=== PATIENT | female | born 1995 | race Caucasian/White ===

== ENCOUNTER 2020-04-25 11:17 | Outpatient (REF) | payer MEDICAID, SELFPAY | END 2020-04-25 11:18 | disposition home or self-care (01) | LOC: HO.LAB 11:17 | PROVIDERS: Visit Provider Internal Medicine | DX: Z20.828 Contact with and (suspected) exposure to other viral communicable diseases (principal) | CPT/HCPCS: 87635 ==

== ENCOUNTER → 2020-06-11 09:03 | Outpatient (BNVA) | payer MEDICAID, SELFPAY | PROVIDERS: Visit Provider Obstetrics & Gynecology | DX: Z31.69 Encounter for other general counseling and advice on procreation (principal); R87.610 Atypical squamous cells of undetermined significance on cytologic smear of cervix (ASC-US) | CPT/HCPCS: 99202 ==

== ENCOUNTER 2020-06-13 12:59 | Outpatient (REF) | payer MEDICAID, SELFPAY ==
--- NOTE | 2020-06-13 13:04 | US_ITS ---
EXAMINATION: PELVIC ULTRASOUND CLINICAL INFORMATION: Infertility COMPARISON: None TECHNIQUE: Transabdominal and transvaginal pelvic ultrasound was performed. Transvaginal exam was performed for better visualization of the uterus and ovaries. FINDINGS: The uterus is anteverted and measures 6.8 x 4 x 4.3 cm in dimension. No focal uterine lesion is seen. Endometrial thickness is normal estimated at 0.3 cm. The ovaries are normal. The right ovary measures 2.6 x 1.8 x 2.2 cm and the left ovary measures 2.2 x 1.4 x 1.9 cm. There is no fluid in the pelvis. US/US pelvic complete IMPRESSION: Normal pelvic ultrasound.
--- NOTE | 2020-06-13 13:04 | US_ITS ---
EXAMINATION: PELVIC ULTRASOUND CLINICAL INFORMATION: Infertility COMPARISON: None TECHNIQUE: Transabdominal and transvaginal pelvic ultrasound was performed. Transvaginal exam was performed for better visualization of the uterus and ovaries. FINDINGS: The uterus is anteverted and measures 6.8 x 4 x 4.3 cm in dimension. No focal uterine lesion is seen. Endometrial thickness is normal estimated at 0.3 cm. The ovaries are normal. The right ovary measures 2.6 x 1.8 x 2.2 cm and the left ovary measures 2.2 x 1.4 x 1.9 cm. There is no fluid in the pelvis. US/US transvaginal IMPRESSION: Normal pelvic ultrasound.
== END 2020-06-13 13:00 | disposition home or self-care (01) ==
LOC: HO.HMGCX 12:59
PROVIDERS: Visit Provider Obstetrics & Gynecology
DX: Z31.69 Encounter for other general counseling and advice on procreation (principal)
CPT/HCPCS: 76830; 76856

== ENCOUNTER → 2020-07-06 10:05 | Outpatient (BNVA) | payer MEDICAID, SELFPAY | PROVIDERS: Visit Provider Obstetrics & Gynecology | DX: Z31.69 Encounter for other general counseling and advice on procreation (principal) | CPT/HCPCS: 99212 ==

== ENCOUNTER 2020-10-25 08:11 | Emergency (ER) | payer OTHER, SELFPAY ==
[2020-10-25 08:47] VITALS: BP 118/72; PULSE 63; RESP 16; TEMP 36.4; O2SAT 99; BMI 27.4
[2020-10-25 09:43] VITALS: BP 113/63; PULSE 67; RESP 20; O2SAT 99
--- NOTE | 2020-10-25 10:17 | ED.HA ---
HPI - Headache General Chief Complaint: Headache <Kaylee Morales PA-C - Last Filed: 10/25/20 11:13> Stated Complaint: headache <TARI Blount Last Filed: 10/25/20 11:13> Time Seen by Provider: 10/25/20 10:15 <TARI Blount Last Filed: 10/25/20 11:13> Source: patient <TARI Blount Last Filed: 10/25/20 11:13> Mode of arrival: ambulatory <TARI Blount Last Filed: 10/25/20 11:13> Limitations: no limitations <TARI Blount Last Filed: 10/25/20 11:13> History of Present Illness HPI Narrative: Patient is a 25-year-old female with no significant past medical history who presents with 2 days of headache. She endorses light sensitivity, sound sensitivity and has taken Tylenol with no relief. She states she used to get them when she was much younger but she has not had one in many years. States she has no migraine medication currently prescribed to her. States she is well hydrated denies any alcohol or drug use recently. Denies nausea, vomiting, diarrhea or fevers. <Kaylee Morales PA-C - Last Filed: 10/25/20 11:13> Related Data Home Medications: Previous Rx's Medication Instructions Recorded clomiphene citrate 50 mg tablet 50 mg PO DAILY 5 Days #30 tab 07/06/20 sumatriptan 5 mg INTRANASAL Q2-4H PRN #6 ea 10/25/20 <TARI Blount Last Filed: 10/25/20 11:13> Allergies/Adverse Reactions: Allergies Allergy/AdvReac Type Severity Reaction Status Date / Time No Known Allergies Allergy Verified 07/06/20 10:12 <TARI Blount Last Filed: 10/25/20 11:13> Review of Systems Review of Systems: Yes all other systems are reviewed and are negative <TARI Blount Last Filed: 10/25/20 11:13> [facility] Social History Social History: Social History Alcohol intake: current Smoking Status: Never smoker Advance Directives: No Advance Directives Information Provided: No Sexual orientation: Straight/Heterosexual Gender identity: female <Kaylee Morales PA-C - Last Filed: 10/25/20 11:13> Physical Exam Vital Signs: Vital Signs: Last Vital Signs Temp 97.6 F 10/25/20 08:47 Pulse 67 10/25/20 09:43 Resp 10/25/20 09:43 BP 113/63 10/25/20 09:43 Pulse Ox 99 10/25/20 09:43 Body Mass Index 27.4 <Kaylee Morales PA-C - Last Filed: 10/25/20 11:13> Vital Signs: Last Vital Signs Temp 97.6 F 10/25/20 08:47 Pulse 67 10/25/20 09:43 Resp 10/25/20 09:43 BP 113/63 10/25/20 09:43 Pulse Ox 99 10/25/20 09:43 Body Mass Index 27.4 <Christopher Marcos MD - Last Filed: 11/13/20 13:27> Const: General: cooperative, healthy appearing, comfortable, no acute distress and tired appearing <Kaylee Morales PA-C - Last Filed: 10/25/20 11:13> Nutritional Appearance: average body habitus <Kaylee Morales PA-C - Last Filed: 10/25/20 11:13> Orientation/consciousness: patient oriented x3 <Kaylee Morales PA-C - Last Filed: 10/25/20 11:13> HENMT: Head: Yes normal to inspection, Yes No palpable skull fracture present, Yes normocephalic and Yes atraumatic <Kaylee Morales PA-C - Last Filed: 10/25/20 11:13> Ears: hearing grossly normal bilaterally <Kaylee Morales PA-C - Last Filed: 10/25/20 11:13> General nose exam: Normal external nose present <Kaylee Morales PA-C - Last Filed: 10/25/20 11:13> Face and sinus: Yes normal facial exam <Kaylee Morales PA-C - Last Filed: 10/25/20 11:13> Eyes: General: appearance normal, both eyes and all related structures <Kaylee Morales PA-C - Last Filed: 10/25/20 11:13> EOM: EOMs intact bilaterally <Kaylee Morales PA-C - Last Filed: 10/25/20 11:13> Neck: Neck: Yes normal visual inspection, Yes full ROM and Yes supple <Kaylee Morales PA-C - Last Filed: 10/25/20 11:13> Resp: Effort & Inspection: normal respiratory effort and able to speak in complete sentences <Kaylee Morales PA-C - Last Filed: 10/25/20 11:13> Auscultation: clear to auscultation bilaterally <Kaylee Morales PA-C - Last Filed: 10/25/20 11:13> Cardio: Rate: regular rate <Kaylee Morales PA-C - Last Filed: 10/25/20 11:13> Rhythm: regular rhythm <Kaylee Morales PA-C - Last Filed: 10/25/20 11:13> Neuro: General: patient oriented x3 <Kaylee Morales PA-C - Last Filed: 10/25/20 11:13> Course Course Course Narrative: 25-year-old female with no significant past medical history presents with 2 days of a migraine. VSS. Physical exam unremarkable. Will give migraine cocktail and reassess. <Kaylee Morales PA-C - Last Filed: 10/25/20 11:13> I have reviewed the chart <Christopher Marcos MD - Last Filed: 11/13/20 13:27> Reevaluation(s) Reevaluation #1: Patient is feeling much better, reviewed migraine treatment and triggers. Patient is calling for a ride. <Kaylee Morales PA-C - Last Filed: 10/25/20 11:13> Time: 11:13 <Kaylee Morales PA-C - Last Filed: 10/25/20 11:13> Discharge Plan Discharge Clinical Impression: Migraine <Kaylee Morales PA-C - Last Filed: 10/25/20 11:13> Patient Disposition: Home, Self-Care <Kaylee Morales PA-C - Last Filed: 10/25/20 11:13> Instructions: Migraine Headache (ED) <Kaylee Morales PA-C - Last Filed: 10/25/20 11:13> Additional Instructions: I have attached information regarding migraines and what common triggers are, the should be avoided. I have also sent a prescription for sumatriptan to your pharmacy for you to try. If you have success with it, you can ask your PCP for refills. If you experience a headache you cannot control with acetaminophen and ibuprofen or feels like the worst headache of her life, please return to the emergency department [facility] or call 911. <Kaylee Morales PA-C - Last Filed: 10/25/20 11:13> Prescriptions: New sumatriptan 5 mg/actuation spray,non-aerosol 5 mg intranasal Q2-4H PRN (Reason: migraine headache) Qty: 6 RF: 0 No Action clomiphene citrate 50 mg tablet 50 mg PO DAILY 5 Days Qty: 30 RF: 0 <Kaylee Morales PA-C - Last Filed: 10/25/20 11:13> Stand Alone Forms: Work/School Release <Kaylee Morales PA-C - Last Filed: 10/25/20 11:13> Interventions: ED Discharge Assessment Last Done: 10/25/20 11:21 <Kaylee Morales PA-C - Last Filed: 10/25/20 11:13> Discharge Date/Time: 10/25/20 11:27 <Kaylee Morales PA-C - Last Filed: 10/25/20 11:13>
[2020-10-25] MEDS: diphenhydrAMINE HCL 25 MG TABLET 50 MG PO (10:28)
[2020-10-25] MEDS: Ketorolac Tromethamine 30 MG/ML VIAL IM (10:28)
[2020-10-25] MEDS: Metoclopramide HCl 5 MG TABLET PO (10:29)
== END 2020-10-25 11:27 | disposition home or self-care (01) ==
PROVIDERS: Emergency Provider Emergency Medicine
DX: G43.009 Migraine without aura, not intractable, without status migrainosus (principal); Z79.899 Other long term (current) drug therapy
CPT/HCPCS: 96372; 99284; J1885; Q0163

== ENCOUNTER 2021-01-02 12:55 | Outpatient (REF) | payer OTHER, SELFPAY ==
--- NOTE | ~2021-01-02 | FL_ITS ---
EXAMINATION: XR HYSTEROSALPINGOGRAM CLINICAL INFORMATION: Infertility. Z31.69. COMPARISON: Pelvic ultrasound 06/13/2020. TECHNIQUE: Canalization of the cervical os and injection of iodinated contrast is Gynecology. See separate report. Fluoroscopy time: 0.6 minutes DAP: 8.983 Gycm2 Fluoroscopic spot images: 5 FINDINGS: Both fallopian tubes are normal in caliber. There is spillage from both fallopian tubes into the peritoneal cavity, initially on the right and subsequently on the left. The upper uterine cavity contours visualized are smooth. There are no internal septations or focal submucosal contour abnormality in the upper uterine cavity. FL/FL hysterosalpingography IMPRESSION: Bilateral fallopian tube patency. No hydrosalpinx.
== END 2021-01-02 12:56 | disposition home or self-care (01) ==
LOC: HO.XRAY 12:55
PROVIDERS: Visit Provider Obstetrics & Gynecology
DX: Z31.69 Encounter for other general counseling and advice on procreation (principal)
CPT/HCPCS: 58340; 74740

== ENCOUNTER 2021-07-16 07:55 | Emergency (ER) | payer OTHER, SELFPAY ==
[2021-07-16 08:07] VITALS: BP 120/68; PULSE 93; RESP 15; TEMP 36.8; O2SAT 96
[2021-07-16 08:53] VITALS: BP 116/57; PULSE 97; RESP 18; TEMP 36.9; O2SAT 98; BMI 27.4
[2021-07-16 09:26] LABS: MANUAL DIFF FLAG NO
[2021-07-16 09:31] LABS: Basophils Percent Auto 0.2 % (0-2); Hematocrit 41.4 % (37.0-47.0); Hemoglobin 14.2 g/dl (12.0-16.0); Imm Gran Abs Auto 0.01 X10*3/uL (0.00-0.03); Imm Gran Pct Auto 0.2 % (0.0-0.4); Lymphocytes Absolute Auto 0.7 X10*3/uL (1.2-4.9); Lymphocytes Percent Auto 12.8 % (20-40); Mean Corpuscular HGB Conc 34.3 g/dl (31.0-35.0); Mean Corpuscular Hemoglobin 32.3 pg (27.0-33.0); Mean Corpuscular Volume 94.3 fL (80.0-98.0); Mean Platelet Volume 10.6 fL (9.4-12.3); Monocytes Absolute Auto 0.5 X10*3/uL (0.1-1.2); Monocytes Percent Auto 10.3 % (2-11); Neutrophils Percent Auto 76.5 % (45-73); Platelet Count 241 X10*3/uL (160-400); Red Blood Count 4.39 X10*6/uL (4.20-5.50); Red Cell Distribution Width 11.8 % (11.0-16.0); White Blood Count 5.2 X10*3/uL (4.8-10.8)
[2021-07-16 09:45] LABS: Appearance Urine HAZY; Color Urine YELLOW; Glucose Urine UA NEG (NEG); Leukocyte Esterase Urine NEG (NEG); Nitrite Urine NEG (NEG); PH 6.5 (5.0-8.0); Specific Gravity - Urine >= 1.030 (1.005-1.025); UACC Culture Trigger NO; Urine Blood NEG (NEG); Urine Ketones 40 MG/DL (NEG); Urine Protein 1+ MG/DL (NEG-TRACE)
[2021-07-16 09:45] LABS: Anion Gap 15 (12-20); Blood Urea Nitrogen 8 mg/dL (9-16); Calcium 9.6 mg/dL (8.4-10.2); Carbon Dioxide 23 mmol/L (22-29); Chloride 104 mmol/L (96-108); Creatinine Clr Calc Pharmacy 99.6; Estimated Glomerular Filt Rate > 60; Glucose Random 105 mg/dL (60-115); Potassium 3.9 mmol/L (3.3-5.1); Sodium 138 mmol/L (135-145)
[2021-07-16 09:48] LABS: UPreg QC Valid YES; Urine Pregnancy NEGATIVE (NEGATIVE)
[2021-07-16 10:04] LABS: Bacteria Urine TRACE /LPF; Mucus Urine 2+ /LPF; RBC Urine 0 /HPF (0); Squamous Epithelial Cell Urine 2+ /LPF; WBC Urine 0-2 /HPF (0-4)
[2021-07-16 10:07] LABS: Influenza A PCR NEGATIVE (Negative); Influenza B PCR NEGATIVE (Negative); Resp Syncy Virus RNA Qual PCR NEGATIVE (Negative); SARS COV2 PCR INHOUSE POSITIVE (Negative)
--- NOTE | 2021-07-16 10:25 | ED.GENADULT ---
HPI - General Adult General Chief complaint: General Medical Stated complaint: headache/back pain Time Seen by Provider: 07/16/21 10:09 Source: patient Mode of arrival: ambulatory Limitations: no limitations History of Present Illness HPI narrative: 26-year-old female came in for evaluation of headache, body ache, low back pain. Patient's symptoms started 1 day ago, patient declined any exposure to sick contact, patient has been vaccinated with Moderna vaccine x2. No coughing, no shortness of breath. Patient found to be positive for COVID today. Related Data Previous Rx's Medication Instructions Recorded clomiphene citrate 50 mg tablet 50 mg PO DAILY 5 Days #30 tab 07/06/20 sumatriptan 5 mg/actuation nasal 5 mg INTRANASAL Q2-4H PRN #6 ea 10/25/20 spray Allergies Allergy/AdvReac Type Severity Reaction Status Date / Time No Known Allergies Allergy Verified 07/06/20 10:12 Review of Systems Review of Systems: All other systems are reviewed and are negative Constitutional: Reports as per HPI and Reports no additional constitutional complaints Eyes: Reports as per HPI and Reports no additional eye complaints Reports system reviewed and no additional complaints, except as documented Cardiovascular: Reports as per HPI and Reports no additional cardiovascular complaints Respiratory: Reports as per HPI and Reports no additional respiratory complaints Gastrointestinal: Reports as per HPI and Reports no additional gastrointestinal complaints Genitourinary: Reports no additional female genitourinary complaints Musculoskeletal: Reports no additional musculoskeletal complaints Skin/Breast: Reports system reviewed and no additional complaints, except as docu Psychiatric: Reports no additional psychiatric complaints Endocrine: Reports no additional endocrine complaints Hematologic/Lymphatic: Reports no additional hematologic/lymphatic complaints Allergic/Immunologic: Reports no additional allergic/immunologic complaints Reports system reviewed and no additional complaints, except as documented and Reports Abnormal speech present [facility] Social History Social History Alcohol intake: current Advance Directives: No Advance Directives Information Provided: No Patient : No Sexual orientation: Straight/Heterosexual Gender identity: Female Physical Exam Vital Signs: Vital Signs: Last Vital Signs Temp 98.4 F 07/16/21 08:53 Pulse 97 07/16/21 08:53 Resp 18 07/16/21 08:53 BP 116/57 L 07/16/21 08:53 Pulse Ox 98 07/16/21 08:53 BMI result Body Mass Index 27.4 Vital signs have been reviewed as appeared to be correct. Blood pressure normal. Heart rate normal. Respiration rate normal. Temperature normal. Oxygen saturation normal. Appearance: Alert. Oriented X3. No acute distress. Head: Normal external exam. Normocephalic. Atraumatic. No [place] signs noted. No raccoon eyes noted Eyes: PERRLA. EOMI. Conjunctiva and sclera normal. Eyelids normal. ENT: TM's Normal. Pharynx normal. Uvula midline. Moist mucous membranes. No trismus noted. No drooling noted. No muffled voice noted. Neck: Normal inspection. Neck supple. FROM. No adenopathy. Thyroid Normal. No meningeal signs. No neck mass noted. CVS: Normal heart rate and rhythm. Heart sound normal. No murmurs noted. Pulses normal throughout. Respiratory: No respiratory distress. Painless inspiration. Breath sounds normal. No wheezes/rales/rhonchi noted. Chest nontender. No accessory muscle usage noted or decreased air movement noted. Abdomen: Soft and nontender. Bowel sounds normal in all 4 quadrants. No distention noted. No organomegaly noted. No visible injury noted. Back: No CVA tenderness. Full range of motion noted. Skin: Skin warm and dry. Normal skin color. Normal skin turgor. No rashes/lesions/lacerations noted. Extremities: No lower extremity edema. Extremities exhibit normal range of motion. Extremities nontender. Neuro: Oriented X 3. Cranial nerve exam: II-XII are grossly intact No motor deficit. No sensory deficit. Reflexes normal. Course Course Course Narrative: Assessment and plan. 26-year-old female came in with COVID symptoms and tested positive for COVID, patient has no respiratory symptoms, with stable O2 sat on room air. patient instructed to wear face mask at all times, frequent handwashing, deep social distancing, currently treating herself further stranding days, use Tylenol or ibuprofen for fever and body ache symptoms, return if difficulty breathing. Medical Decision Making Lab Data Lab results reviewed: Yes I reviewed the patient's lab results. Result diagrams: 07/16/21 09:20 07/16/21 09:20 Labs: Lab Results 07/16/21 07/16/21 07/16/21 Range/Units 09:20 09:20 09:21 WBC 5.2 (4.8-10.8) X10*3/uL RBC 4.39 (4.20-5.50) X10*6/uL Hgb 14.2 (12.0-16.0) g/dl Hct 41.4 (37.0-47.0) % MCV 94.3 (80.0-98.0) fL MCH 32.3 (27.0-33.0) pg MCHC 34.3 (31.0-35.0) g/dl RDW 11.8 (11.0-16.0) % Plt Count 241 (160-400) X10*3/uL MPV 10.6 (9.4-12.3) fL Immature Gran % (Auto) 0.2 (0.0-0.4) % Neut % (Auto) 76.5 H (45-73) % Lymph % (Auto) 12.8 L (20-40) % [place] % (Auto) 10.3 (2-11) % Eos % (Auto) 0.0 (0-4) % Baso % (Auto) 0.2 (0-2) % Lymph # (Auto) 0.7 L (1.2-4.9) X10*3/uL [place] # (Auto) 0.5 (0.1-1.2) X10*3/uL Eos # (Auto) 0.0 (0.0-0.4) X10*3/uL Baso # (Auto) 0.0 (0.0-0.2) X10*3/uL Abs Immat Gran (auto) 0.01 (0.00-0.03) X10*3/uL Absolute Neuts (auto) 4.0 (2.0-8.3) x10*3/uL Absolute Nucleated RBC 0.000 (0.0-0.012) X10*3/uL Nucleated RBC % (auto) 0.0 (0.0-0.2) /100WBC Sodium 138 (135-145) mmol/L Potassium 3.9 (3.3-5.1) mmol/L Chloride 104 (96-108) mmol/L Carbon Dioxide 23 (22-29) mmol/L Anion Gap 15 (12-20) BUN 8 L (9-16) mg/dL Creatinine 0.76 (0.5-1.4) mg/dL Estim Creat Clear Calc 99.6 Estimated GFR > 60 Random Glucose 105 (60-115) mg/dL Calcium 9.6 (8.4-10.2) mg/dL Urine Color Urine Appearance Urine pH (5.0-8.0) Ur Specific [place] (1.005-1.025) Urine Protein (NEG-TRACE) MG/DL Urine Glucose (UA) (NEG) MG/DL Urine Ketones (NEG) MG/DL Urine Blood (NEG) Urine Nitrite (NEG) Ur Leukocyte Esterase (NEG) Urine RBC (0) /HPF Urine WBC (0-4) /HPF Ur Squamous Epith Cells /LPF Urine Bacteria /LPF Urine Mucus /LPF Urine Test (NEGATIVE) Influenza Type A (PCR) NEGATIVE (Negative) Influenza Type B (PCR) NEGATIVE (Negative) RSV RNA Qual (PCR) NEGATIVE (Negative) SARS-CoV-2 RNA (RT-PCR) POSITIVE A (Negative) 07/16/21 07/16/21 Range/Units 09:38 09:38 WBC (4.8-10.8) X10*3/uL RBC (4.20-5.50) X10*6/uL Hgb (12.0-16.0) g/dl Hct (37.0-47.0) % MCV (80.0-98.0) fL MCH (27.0-33.0) pg MCHC (31.0-35.0) g/dl RDW (11.0-16.0) % Plt Count (160-400) X10*3/uL MPV (9.4-12.3) fL Immature Gran % (Auto) (0.0-0.4) % Neut % (Auto) (45-73) % Lymph % (Auto) (20-40) % [place] % (Auto) (2-11) % Eos % (Auto) (0-4) % Baso % (Auto) (0-2) % Lymph # (Auto) (1.2-4.9) X10*3/uL [place] # (Auto) (0.1-1.2) X10*3/uL Eos # (Auto) (0.0-0.4) X10*3/uL Baso # (Auto) (0.0-0.2) X10*3/uL Abs Immat Gran (auto) (0.00-0.03) X10*3/uL Absolute Neuts (auto) (2.0-8.3) x10*3/uL Absolute Nucleated RBC (0.0-0.012) X10*3/uL Nucleated RBC % (auto) (0.0-0.2) /100WBC Sodium (135-145) mmol/L Potassium (3.3-5.1) mmol/L Chloride (96-108) mmol/L Carbon Dioxide (22-29) mmol/L Anion Gap (12-20) BUN (9-16) mg/dL Creatinine (0.5-1.4) mg/dL Estim Creat Clear Calc Estimated GFR Random Glucose (60-115) mg/dL Calcium (8.4-10.2) mg/dL Urine Color YELLOW Urine Appearance HAZY Urine pH 6.5 (5.0-8.0) Ur Specific [place] >= 1.030 H (1.005-1.025) Urine Protein 1+ H (NEG-TRACE) MG/DL Urine Glucose (UA) NEG (NEG) MG/DL Urine Ketones 40 (NEG) MG/DL Urine Blood NEG (NEG) Urine Nitrite NEG (NEG) Ur Leukocyte Esterase NEG (NEG) Urine RBC 0 (0) /HPF Urine WBC 0-2 (0-4) /HPF Ur Squamous Epith Cells 2+ /LPF Urine Bacteria TRACE /LPF Urine Mucus 2+ /LPF Urine Test NEGATIVE (NEGATIVE) Influenza Type A (PCR) (Negative) Influenza Type B (PCR) (Negative) RSV RNA Qual (PCR) (Negative) SARS-CoV-2 RNA (RT-PCR) (Negative) Discharge Plan Discharge Clinical Impression: COVID-19 virus infection Patient Disposition: Home, Self-Care Instructions: COVID-19 (Coronavirus Disease 2019) (ED) Additional Instructions: Wear a face mask at all time, frequent handwashing, keep social distancing, quarantine yourself for the next 10 days, seek immediate medical attention if shortness of breath, use Tylenol/ibuprofen for fever or body aches symptoms. Prescriptions: No Action sumatriptan 5 mg/actuation spray,non-aerosol 5 mg intranasal Q2-4H PRN (Reason: migraine headache) Qty: 6 RF: 0 clomiphene citrate 50 mg tablet 50 mg PO DAILY 5 Days Qty: 30 RF: 0 Referrals: Physician,None [Primary Care Provider] - 2 days Stand Alone Forms: Work/School Release
== END 2021-07-16 10:35 | disposition home or self-care (01) ==
PROVIDERS: Emergency Provider Emergency Medicine
DX: U07.1 COVID-19 (principal)
CPT/HCPCS: 0241U; 80048; 81001; 81025; 85025; 99283

== ENCOUNTER → 2021-10-17 15:28 | Outpatient (BNVA) | payer OTHER, SELFPAY | PROVIDERS: Visit Provider Internal Medicine | DX: Z77.21 Contact with and (suspected) exposure to potentially hazardous body fluids (principal) | CPT/HCPCS: 36415; 84450; 84460; 84702; 85025; 86706; 86803; 87389; 99204 ==

== ENCOUNTER → 2021-10-24 15:28 | Outpatient (BNVA) | payer OTHER, SELFPAY | PROVIDERS: Visit Provider Physician Assistant | DX: Z77.21 Contact with and (suspected) exposure to potentially hazardous body fluids (principal) | CPT/HCPCS: 99213 ==

== ENCOUNTER 2021-12-21 05:38 | Emergency (ER) | payer OTHER, SELFPAY ==
[2021-12-21 05:42] VITALS: BP 121/73; PULSE 89; RESP 18; TEMP 36.9; O2SAT 99; BMI 28.6
[2021-12-21 05:55] LABS: Basophils Percent Auto 0.3 % (0-2); Eosinophils Absolute Auto 0.1 X10*3/uL (0.0-0.4); Eosinophils Percent Auto 0.6 % (0-4); Hematocrit 40.5 % (37.0-47.0); Hemoglobin 13.9 g/dl (12.0-16.0); Imm Gran Abs Auto 0.04 X10*3/uL (0.00-0.03); Imm Gran Pct Auto 0.4 % (0.0-0.4); Lymphocytes Absolute Auto 2.1 X10*3/uL (1.2-4.9); MANUAL DIFF FLAG NO; Mean Corpuscular HGB Conc 34.3 g/dl (31.0-35.0); Mean Corpuscular Hemoglobin 32.4 pg (27.0-33.0); Mean Corpuscular Volume 94.4 fL (80.0-98.0); Mean Platelet Volume 10.2 fL (9.4-12.3); Monocytes Absolute Auto 0.5 X10*3/uL (0.1-1.2); Monocytes Percent Auto 4.5 % (2-11); Neutrophils Absolute Auto 8.2 x10*3/uL (2.0-8.3); Neutrophils Percent Auto 75.2 % (45-73); Platelet Count 292 X10*3/uL (160-400); Red Blood Count 4.29 X10*6/uL (4.20-5.50); White Blood Count 10.9 X10*3/uL (4.8-10.8)
[2021-12-21 06:06] LABS: Appearance Urine CLEAR; Color Urine YELLOW; Glucose Urine UA NEG (NEG); Leukocyte Esterase Urine NEG (NEG); Nitrite Urine NEG (NEG); Specific Gravity - Urine >= 1.030 (1.005-1.025); UACC Culture Trigger NO; Urine Blood 3+ (NEG); Urine Ketones NEG (NEG); Urine Protein NEG (NEG-TRACE)
[2021-12-21 06:08] LABS: UPreg QC Valid YES; Urine Pregnancy NEGATIVE (NEGATIVE)
[2021-12-21 06:15] LABS: Alanine Aminotransferase 16 U/L (0-31); Albumin Level 4.5 g/dL (3.5-5.0); Alkaline Phosphatase 67 U/L (39-117); Anion Gap 12 (12-20); Aspartate Amino Transferase 15 U/L (5-31); Bilirubin Total 0.3 mg/dL (0.0-1.0); Blood Urea Nitrogen 13 mg/dL (9-16); Calcium 9.1 mg/dL (8.4-10.2); Carbon Dioxide 24 mmol/L (22-29); Chloride 106 mmol/L (96-108); Creatinine Clr Calc Pharmacy 108.8; Estimated Glomerular Filt Rate > 60; Glucose Random 114 mg/dL (60-115); Sodium 138 mmol/L (135-145); Total Protein 7.4 g/dL (6.5-8.0)
[2021-12-21 06:15] LABS: Bacteria Urine 2+ /LPF; Mucus Urine 2+ /LPF; Squamous Epithelial Cell Urine 1+ /LPF
[2021-12-21 07:14] VITALS: BP 111/65; PULSE 68; RESP 16; O2SAT 98
--- NOTE | 2021-12-21 08:16 | ED.FEMALEGU ---
HPI - Female Genitourinary General Chief complaint: Vaginal Bleeding Stated complaint: ? miscarriage Time Seen by Provider: 12/21/21 07:59 Source: patient Mode of arrival: ambulatory Limitations: no limitations History of Present Illness HPI Narrative: 26-year-old female previously healthy here with reports of abdominal cramping and vaginal bleeding. Patient tells me that she last menstrual cycle on October 27. She took a test 1 week ago and it was positive. Last evening she started to have some spotting. This morning when she woke up at 03:00 she had increased bleeding and lower abdominal cramping bilaterally. She denies any nausea, vomiting, diarrhea, urinary symptoms, fevers or chills. Patient is currently sexually active. She has not on control. She has been trying to get for the last 1 year. She has been once before and has 1 living child. Related Data Previous Rx's Medication Instructions Recorded clomiphene citrate 50 mg tablet 50 mg PO DAILY 5 days #30 tabs 07/06/20 sumatriptan 5 mg/actuation nasal 5 mg intranasal Q2-4H PRN migraine 10/25/20 spray headache #6 ea Allergies Allergy/AdvReac Type Severity Reaction Status Date / Time No Known Allergies Allergy Verified 07/06/20 10:12 Review of Systems Review of Systems: Yes all other systems are reviewed and are negative Constitutional: Constitutional: Reports no additional constitutional complaints, Denies body ache(s), Denies chills, Denies fever(s), Denies headache(s) and Denies weakness Eyes: Eyes: Reports no additional eye complaints and Denies change in vision ENT: Reports system reviewed and no additional complaints, except as documented, Denies dizziness, Denies headache(s), Denies nasal congestion, Denies nasal discharge and Denies neck pain Cardiovascular: Cardiovascular: Reports no additional cardiovascular complaints, Denies chest pain, Denies leg edema and Denies dyspnea Respiratory: Respiratory: Reports no additional respiratory complaints, Denies cough and Denies dyspnea Gastrointestinal: Gastrointestinal: Reports no additional gastrointestinal complaints, Denies abdominal pain, Denies diarrhea, Denies nausea and Denies vomiting Genitourinary: Genitourinary: Reports no additional female genitourinary complaints, Reports abnormal vaginal bleeding, Reports pelvic pain and Denies urinary incontinence Musculoskeletal: Musculoskeletal: Reports no additional musculoskeletal complaints, Denies back pain, Denies arthralgias, Denies joint swelling, Denies neck pain, Denies numbness and Denies tingling Integumentary/Breasts: Skin/Breast: Reports system reviewed and no additional complaints, except as docu and Denies rash Neurologic: Reports system reviewed and no additional complaints, except as documented, Denies Abnormal speech present, Denies dizziness, Denies headache(s), Denies numbness, Denies tingling and Denies weakness [facility] Past Medical History Attestation statement: The following information was validated with the patient. Source: old records reviewed and nursing notes reviewed Social History Social History Alcohol intake: current Advance Directives: No Advance Directives Information Provided: Yes Sexual orientation: Straight/Heterosexual Gender identity: Female Physical Exam Vital Signs: Vital Signs: Last Vital Signs Temp 98.5 F 12/21/21 05:42 Pulse 68 12/21/21 07:14 Resp 16 12/21/21 07:14 BP 111/65 12/21/21 07:14 Pulse Ox 98 12/21/21 07:14 O2 Del Method 12/21/21 07:14 BMI result Body Mass Index 28.6 Const: General: cooperative, healthy appearing, comfortable and no acute distress Orientation/consciousness: patient oriented x3 Limitations: no limitations HEENT: Head: Yes normal to inspection Ears: hearing grossly normal bilaterally General nose exam: Normal external nose present Face and sinus: Yes normal facial exam Mouth: Normal oral and palatal mucosa present Throat: Yes posterior oropharynx normal Eyes: General: appearance normal, both eyes and all related structures Pupils: Equal, round and reactive pupils present Neck: Neck: Yes normal visual inspection Chest: Chest palpation & inspection: normal inspection of the chest Resp: Effort & Inspection: normal respiratory effort Auscultation: clear to auscultation bilaterally Cardio: Rate: regular rate Rhythm: regular rhythm Peripheral pulses: Peripheral pulses 2+ throughout GI: Inspection: Yes normal to inspection Palpation (GI): Soft to palpation and nontender Auscultation: normal bowel sounds : 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 noted-no clots External Female Exam: normal external appearance Speculum Exam - Vagina: normal appearance of the vagina Speculum Exam - Cervix: normal appearance of the cervix Bimanual exam- vagina & uterus: normal bimanual exam Bimanual Exam- Adnexa, other: normal adnexae Back/Spine/Pelvis: Thoracic/Lumbar Spine: thoracic and lumbar spine normal to inspection Skin: General skin exam: no rashes or lesions noted Neuro: General: patient oriented x3, no focal motor deficits and normal sensation to monofilament Cranial nerves: Yes Equal, round and reactive pupils present Cognition (Neuro): normal cognition Speech: No Abnormal speech present Gait exam (Neuro): Normal gait present Motor exam (neuro): 5/5 motor strength present throughout Extrem: General: Yes normal to inspection Course Course Course Narrative: Urine is negative. Labs are unremarkable and the beta quant is negative as well. Pelvic exam shows a small to moderate amount of bleeding from the cervical os. There is no heavy bleeding. Likely dysfunctional uterine bleeding. No focal abdominal pain on exam so no need for additional imaging. Recommend patient follow-up with gynecology outpatient. Reviewed worrisome signs and symptoms such as worsening bleeding and when to return to the emergency department. Comfortable discharge home. MDM - Female Genitourinary MDM Narrative Medical decision making narrative: 26-year-old female currently healthy here with concern for abdominal cramping and vaginal bleeding since last evening with a home test that was positive 1 week ago. On exam no focal abdominal tenderness. Vitals are stable. Urine from triage is negative. Will obtain labs to include hemoglobin and check beta quant. Patient reports she has used 3 pads since 03:00 this morning. Will need pelvic exam Consider ectopic , spontaneous miscarriage, threatened , dysfunctional uterine bleeding Medical Records Attestation: I reviewed the patient's medical records. Lab Data Attestation: I reviewed the patient's lab results. Result diagrams: 12/21/21 05:47 12/21/21 05:47 Labs: Lab Results 12/21/21 12/21/21 12/21/21 Range/Units 05:47 05:47 05:57 WBC 10.9 H (4.8-10.8) X10*3/uL RBC 4.29 (4.20-5.50) X10*6/uL Hgb 13.9 (12.0-16.0) g/dl Hct 40.5 (37.0-47.0) % MCV 94.4 (80.0-98.0) fL MCH 32.4 (27.0-33.0) pg MCHC 34.3 (31.0-35.0) g/dl RDW 12.0 (11.0-16.0) % Plt Count 292 (160-400) X10*3/uL MPV 10.2 (9.4-12.3) fL Immature Gran % (Auto) 0.4 (0.0-0.4) % Neut % (Auto) 75.2 H (45-73) % Lymph % (Auto) 19.0 L (20-40) % [place] % (Auto) 4.5 (2-11) % Eos % (Auto) 0.6 (0-4) % Baso % (Auto) 0.3 (0-2) % Lymph # (Auto) 2.1 (1.2-4.9) X10*3/uL [place] # (Auto) 0.5 (0.1-1.2) X10*3/uL Eos # (Auto) 0.1 (0.0-0.4) X10*3/uL Baso # (Auto) 0.0 (0.0-0.2) X10*3/uL Abs Immat Gran (auto) 0.04 H (0.00-0.03) X10*3/uL Absolute Neuts (auto) 8.2 (2.0-8.3) x10*3/uL Absolute Nucleated RBC 0.000 (0.0-0.012) X10*3/uL Nucleated RBC % (auto) 0.0 (0.0-0.2) /100WBC Sodium 138 (135-145) mmol/L Potassium 4.0 (3.3-5.1) mmol/L Chloride 106 (96-108) mmol/L Carbon Dioxide 24 (22-29) mmol/L Anion Gap 12 (12-20) BUN 13 D (9-16) mg/dL Creatinine 0.71 (0.5-1.4) mg/dL Estim Creat Clear Calc 108.8 Estimated GFR > 60 Random Glucose 114 (60-115) mg/dL Calcium 9.1 (8.4-10.2) mg/dL Total Bilirubin 0.3 (0.0-1.0) mg/dL AST 15 (5-31) U/L ALT 16 (0-31) U/L Alkaline Phosphatase 67 (39-117) U/L Total Protein 7.4 (6.5-8.0) g/dL Albumin 4.5 (3.5-5.0) g/dL Beta HCG, Quant < 2 mIU/mL Urine Color YELLOW Urine Appearance CLEAR Urine pH 6.0 (5.0-8.0) Ur Specific [place] >= 1.030 H (1.005-1.025) Urine Protein NEG (NEG-TRACE) MG/DL Urine Glucose (UA) NEG (NEG) MG/DL Urine Ketones NEG (NEG) MG/DL Urine Blood 3+ H (NEG) Urine Nitrite NEG (NEG) Ur Leukocyte Esterase NEG (NEG) Urine RBC 1-4 (0) /HPF Urine WBC 1-4 (0-4) /HPF Ur Squamous Epith Cells 1+ /LPF Urine Bacteria 2+ /LPF Urine Mucus 2+ /LPF Urine Test (NEGATIVE) 12/21/21 Range/Units 05:57 WBC (4.8-10.8) X10*3/uL RBC (4.20-5.50) X10*6/uL Hgb (12.0-16.0) g/dl Hct (37.0-47.0) % MCV (80.0-98.0) fL MCH (27.0-33.0) pg MCHC (31.0-35.0) g/dl RDW (11.0-16.0) % Plt Count (160-400) X10*3/uL MPV (9.4-12.3) fL Immature Gran % (Auto) (0.0-0.4) % Neut % (Auto) (45-73) % Lymph % (Auto) (20-40) % [place] % (Auto) (2-11) % Eos % (Auto) (0-4) % Baso % (Auto) (0-2) % Lymph # (Auto) (1.2-4.9) X10*3/uL [place] # (Auto) (0.1-1.2) X10*3/uL Eos # (Auto) (0.0-0.4) X10*3/uL Baso # (Auto) (0.0-0.2) X10*3/uL Abs Immat Gran (auto) (0.00-0.03) X10*3/uL Absolute Neuts (auto) (2.0-8.3) x10*3/uL Absolute Nucleated RBC (0.0-0.012) X10*3/uL Nucleated RBC % (auto) (0.0-0.2) /100WBC Sodium (135-145) mmol/L Potassium (3.3-5.1) mmol/L Chloride (96-108) mmol/L Carbon Dioxide (22-29) mmol/L Anion Gap (12-20) BUN (9-16) mg/dL Creatinine (0.5-1.4) mg/dL Estim Creat Clear Calc Estimated GFR Random Glucose (60-115) mg/dL Calcium (8.4-10.2) mg/dL Total Bilirubin (0.0-1.0) mg/dL AST (5-31) U/L ALT (0-31) U/L Alkaline Phosphatase (39-117) U/L Total Protein (6.5-8.0) g/dL Albumin (3.5-5.0) g/dL Beta HCG, Quant mIU/mL Urine Color Urine Appearance Urine pH (5.0-8.0) Ur Specific [place] (1.005-1.025) Urine Protein (NEG-TRACE) MG/DL Urine Glucose (UA) (NEG) MG/DL Urine Ketones (NEG) MG/DL Urine Blood (NEG) Urine Nitrite (NEG) Ur Leukocyte Esterase (NEG) Urine RBC (0) /HPF Urine WBC (0-4) /HPF Ur Squamous Epith Cells /LPF Urine Bacteria /LPF Urine Mucus /LPF Urine Test NEGATIVE (NEGATIVE) Discharge Plan Discharge Clinical Impression: Dysfunctional uterine bleeding Patient Disposition: Home, Self-Care Instructions: Dysfunctional Uterine Bleeding (ED) Additional Instructions: Your test and hormone level are negative. Follow-up with your OBGYN Return for heavy bleeding more than 1 pad an 1 hour Prescriptions: No Action sumatriptan 5 mg/actuation spray,non-aerosol 5 mg intranasal Q2-4H PRN (Reason: migraine headache) Qty: 6 0RF Rx Instructions: into each nostril once; if headache remains, may repeat total dose once after at least 2 hours clomiphene citrate 50 mg tablet 50 mg PO DAILY 5 Days Qty: 30 0RF Referrals: Physician,None [Primary Care Provider] - Everardo Roman MD [Physician] - 1 week Interventions: ED Discharge Assessment Last Done: 12/21/21 08:49 Discharge Date/Time: 12/21/21 08:49
[2021-12-21 08:31] LABS: HCG Quantitative < 2 mIU/mL
== END 2021-12-21 08:49 | disposition home or self-care (01) ==
PROVIDERS: Nurse Practitioner Family; Emergency Provider Emergency Medicine Emergency Medical Services
DX: N93.8 Other specified abnormal uterine and vaginal bleeding (principal); R25.2 Cramp and spasm; Z79.899 Other long term (current) drug therapy
CPT/HCPCS: 36415; 80053; 81001; 81025; 84702; 85025; 99283

== ENCOUNTER 2022-01-20 20:34 | Emergency (ER) | payer OTHER, SELFPAY ==
[2022-01-20 21:08] VITALS: BP 104/48; PULSE 75; RESP 18; TEMP 35.6; O2SAT 100; BMI 27.4
--- NOTE | 2022-01-21 00:46 | ED_ITS ---
HPI - Wound/Laceration General Chief Complaint: Wound/Laceration <Adela Guzman MD - Last Filed: 01/21/22 01:33> Stated Complaint: cut wants to be looked at <Adela Guzman MD - Last Filed: 01/21/22 01:33> Time Seen by Provider: 01/20/22 21:47 <Adela Guzman MD - Last Filed: 01/21/22 01:33> Source: patient <Adela Guzman MD - Last Filed: 01/21/22 01:33> Mode of arrival: ambulatory <Adela Guzman MD - Last Filed: 01/21/22 01:33> History of Present Illness HPI narrative: 26-year-old female without significant past medical history presents with clean laceration to the thenar eminence of the left hand that she sustained while at work from a scalpel that was not contaminated with any blood or body fluids. Patient reports that she is up-to-date on tetanus shot. <Adela Guzman MD - Last Filed: 01/21/22 01:33> Related Data Home Medications: Previous Rx's Medication Instructions Recorded clomiphene citrate 50 mg tablet 50 mg PO DAILY 5 days #30 tabs 07/06/20 sumatriptan 5 mg/actuation nasal 5 mg intranasal Q2-4H PRN migraine 10/25/20 spray headache #6 ea <Adela Guzman MD - Last Filed: 01/21/22 01:33> Allergies/Adverse Reactions: Allergies Allergy/AdvReac Type Severity Reaction Status Date / Time No Known Allergies Allergy Verified 07/06/20 10:12 <Adela Guzman MD - Last Filed: 01/21/22 01:33> Review of Systems Review of Systems: Pertinent positives and negatives as stated in HPI 10 point review of systems is otherwise negative. <Adela Guzman MD - Last Filed: 01/21/22 01:33> FOR[facility]LY [facility] Past Medical History Source: nursing notes reviewed <Adela Guzman MD - Last Filed: 01/21/22 01:33> Social History Social History: Social History Alcohol intake: current Advance Directives: No Advance Directives Information Provided: Yes Sexual orientation: Straight/Heterosexual Gender identity: Female <Adela Guzman MD - Last Filed: 01/21/22 01:33> Physical Exam Vital Signs: Vital Signs: Last Vital Signs Temp 96.0 F L 01/20/22 21:08 Pulse 75 01/20/22 21:08 Resp 18 01/20/22 21:08 BP 104/48 L 01/20/22 21:08 Pulse Ox 100 01/20/22 21:08 O2 Del Method 01/20/22 21:08 BMI result Body Mass Index 27.4 VITAL SIGNS: Reviewed. GENERAL: Well developed, well nourished, in no acute distress. HEAD: Normocephalic/atraumatic EYES: PERRLA, EOMI EARS: Ext canals without abnormality OROPHARYNX: no oral lesions noted, posterior pharynx LUNGS: Normal breath sounds. No adventitious sounds or accessory muscle use. SpO2<100> CARDIOVASCULAR: Regular rate and rhythm without noted murmurs ABDOMEN: Soft, non-tender, non-distended with bowel sounds. MUSCULOSKELETAL: No tenderness, deformities, or effusions noted on gross inspection. EXTREMITIES: No cyanosis, clubbing or edema; LEFT HAND: 2 cm superficial laceration that is hemostatic to the thenar eminence of the left hand, neurovascular is intact with full range of motion and apposition of the thumb. SKIN: Inspection of the skin reveals no rashes NEUROLOGIC: Alert and oriented x 4. Strength and sensation to light touch were grossly intact x 4. <Adela Guzmna MD - Last Filed: 01/21/22 01:33> Vital Signs: Last Vital Signs Temp 96.0 F L 01/20/22 21:08 Pulse 75 01/20/22 21:08 Resp 18 01/20/22 21:08 BP 104/48 L 01/20/22 21:08 Pulse Ox 100 01/20/22 21:08 O2 Del Method 01/20/22 21:08 BMI result Body Mass Index 27.4 <TONIE Pizarro - Last Filed: 01/21/22 01:33> Course Course Course Narrative: 26-year-old female with history and clinical presentation consistent with superficial laceration from a sterile scalp pole, not contaminated, up-to-date on tetanus, and will receive a minimum of 2 sutures, refer to the procedure note for details. Otherwise, patient was discharged home with instructions to take [id number] Tylenol/ibuprofen as needed for pain control and to have the sutures removed in 5 days. <Adela Guzman MD - Last Filed: 01/21/22 01:33> Procedures Laceration Laceration 1: Site: hand <TONIE Pizarro - Last Filed: 01/21/22 01:33> Side (If applicable): left <TONIE Pizarro - Last Filed: 01/21/22 01:33> Size (cm): 2 <Adela Guzman MD - Last Filed: 01/21/22:33> 2 <TONIE Pizarro - Last Filed: 01/21/22 01:33> Description: linear <TONIE Pizarro - Last Filed: 01/21/22 01:33> Depth: simple, single layer <TONIE Pizarro - Last Filed: 01/21/22 01:33> Local Anesthetic: lidocaine 1% <TONIE Pizarro - Last Filed: 01/21/22 01:33> Amount of anesthesia used (mL): 4 <TONIE Pizarro - Last Filed: 01/21/22 01:33> Pre-repair: wound explored <TONIE Pizarro - Last Filed: 01/21/22 01:33> Skin layer closed with: nylon <TONIE Pizarro - Last Filed: 01/21/22 01:33> Size (cm): 5-0 <TONIE Pizarro - Last Filed: 01/21/22 01:33> Number of sutures: 2 <TONIE Pizarro - Last Filed: 01/21/22 01:33> Technique: simple, interrupted <TONIE Pizarro - Last Filed: 01/21/22 01:33> Discharge Plan Discharge Clinical Impression: Laceration <Adela Guzman MD - Last Filed: 01/21/22 01:33> Patient Disposition: Home, Self-Care <Adela Guzman MD - Last Filed: 01/21/22 01:33> Instructions: Care For Your Stitches (ED), Laceration (ED) <Adela Guzman MD - Last Filed: 01/21/22 01:33> Additional Instructions: 1. May cleanse the sutures with soap and water and blot dry with application of antibiotic ointment and placement of a Band-Aid. 2. Recommend removal of the sutures within 5 days. Return to the ER for worsening symptoms. <Adela Guzman MD - Last Filed: 01/21/22 01:33> Prescriptions: No Action sumatriptan 5 mg/actuation spray,non-aerosol 5 mg intranasal Q2-4H PRN (Reason: migraine headache) Qty: 6 0RF Rx Instructions: into each nostril once; if headache remains, may repeat total dose once after at least 2 hours clomiphene citrate 50 mg tablet 50 mg PO DAILY 5 Days Qty: 30 0RF <Adela Guzman MD - Last Filed: 01/21/22 01:33>
[2022-01-21] MEDS: Lidocaine HCl 1 % MPF 5 ML VIAL SUBCUT (01:14)
== END 2022-01-21 01:44 | disposition home or self-care (01) ==
PROVIDERS: Emergency Provider Student in an Organized Health Care Education/Training Program
DX: S61.412A Laceration without foreign body of left hand, initial encounter (principal); W26.8XXA Contact with other sharp object(s), not elsewhere classified, initial encounter; Y93.9 Activity, unspecified; Y92.9 Unspecified place or not applicable; Y99.0 Civilian activity done for income or pay
CPT/HCPCS: 12001; 99282; 99284

== ENCOUNTER 2022-03-01 15:23 | Emergency (ER) | payer OTHER, SELFPAY ==
[2022-03-01 15:37] VITALS: BP 127/85; PULSE 90; RESP 18; TEMP 35.7; O2SAT 99; BMI 28.3
[2022-03-01] MEDS: Ondansetron ODT 4 MG TAB.RAPDIS TRANSLINGU (15:41)
[2022-03-01 16:05] LABS: MANUAL DIFF FLAG NO
[2022-03-01 16:08] LABS: Basophils Percent Auto 0.4 % (0-2); Eosinophils Percent Auto 0.2 % (0-4); Hematocrit 47.1 % (37.0-47.0); Hemoglobin 16.2 g/dl (12.0-16.0); Imm Gran Abs Auto 0.02 X10*3/uL (0.00-0.03); Imm Gran Pct Auto 0.2 % (0.0-0.4); Lymphocytes Absolute Auto 1.6 X10*3/uL (1.2-4.9); Lymphocytes Percent Auto 18.6 % (20-40); Mean Corpuscular HGB Conc 34.4 g/dl (31.0-35.0); Mean Corpuscular Hemoglobin 31.8 pg (27.0-33.0); Mean Corpuscular Volume 92.5 fL (80.0-98.0); Mean Platelet Volume 10.3 fL (9.4-12.3); Monocytes Absolute Auto 0.4 X10*3/uL (0.1-1.2); Monocytes Percent Auto 4.6 % (2-11); Neutrophils Absolute Auto 6.3 x10*3/uL (2.0-8.3); Platelet Count 340 X10*3/uL (160-400); Red Blood Count 5.09 X10*6/uL (4.20-5.50); Red Cell Distribution Width 12.2 % (11.0-16.0); White Blood Count 8.3 X10*3/uL (4.8-10.8)
[2022-03-01 16:28] LABS: COVID-19 Test Negative (Negative); IDNOW Serial# 16C4AD1C
[2022-03-01 16:32] LABS: Alanine Aminotransferase 22 U/L (0-31); Albumin Level 5.3 g/dL (3.5-5.0); Alkaline Phosphatase 77 U/L (39-117); Anion Gap 20 (12-20); Aspartate Amino Transferase 21 U/L (5-31); Bilirubin Direct 0.3 mg/dL (0.0-0.5); Bilirubin Total 0.7 mg/dL (0.0-1.0); Blood Urea Nitrogen 14 mg/dL (9-16); Calcium 10.4 mg/dL (8.4-10.2); Carbon Dioxide 27 mmol/L (22-29); Chloride 104 mmol/L (96-108); Creatinine Clr Calc Pharmacy 93.8; Estimated Glomerular Filt Rate > 60; Glucose Random 105 mg/dL (60-115); Lipase 24 U/L (8-78); Potassium 4.6 mmol/L (3.3-5.1); Sodium 146 mmol/L (135-145); Total Protein 9.2 g/dL (6.5-8.0)
== END 2022-03-01 20:57 | disposition left against medical advice (07) ==
PROVIDERS: Emergency Provider Emergency Medicine
DX: R10.9 Unspecified abdominal pain (principal); R11.10 Vomiting, unspecified; Z20.822 Contact with and (suspected) exposure to COVID-19
CPT/HCPCS: 36415; 80048; 80076; 83690; 85025; 87635; 99281; 99283

== ENCOUNTER 2022-05-05 06:35 | Emergency (ER) | payer OTHER, SELFPAY ==
[2022-05-05 07:10] VITALS: BP 117/65; PULSE 65; RESP 18; TEMP 36.7; O2SAT 99; BMI 28.5
--- NOTE | 2022-05-05 08:14 | ED.HA ---
HPI - Headache General Chief Complaint: Headache Stated Complaint: migrain 2 days Time Seen by Provider: 05/05/22 07:56 Source: patient Mode of arrival: ambulatory Limitations: no limitations History of Present Illness HPI Narrative: Patient presents emergency department for evaluation of a migraine headache. Onset of symptoms was 1.5 days ago. It is diffuse to the left side. Denies any injury. Has associated photophobia without phonophobia, no nausea, no vomiting. Has trialed Excedrin at home without significant improvement. Reports a longstanding history of migraine headaches since a child, typically resolves with Excedrin. This headache feels more severe than her usual headaches but otherwise has similar qualities. Denies any red flag symptoms including fevers, chills, neck stiffness, malaise, aphasia, weakness, poor coordination, descriptors such as ?the worst headache ever ?or ?thunderclap?, or painful temporal region. Denies dizziness, lightheadedness, vision changes, URI symptoms, chest pain, shortness of breath, numbness or tingling of the extremities. Related Data Previous Rx's Medication Instructions Recorded clomiphene citrate 50 mg tablet 50 mg PO DAILY 5 days #30 tabs 07/06/20 sumatriptan 5 mg/actuation nasal 5 mg intranasal Q2-4H PRN migraine 10/25/20 spray headache #6 ea sumatriptan succinate 50 mg tablet See Rx Instructions PO .COMPLEX 05/05/22 #14 tabs Allergies Allergy/AdvReac Type Severity Reaction Status Date / Time No Known Allergies Allergy Verified 07/06/20 10:12 Review of Systems Review of Systems: Constitutional : No Fever, No Chills, No Fatigue ENT/Mouth : No sore throat, No Rhinorrhea Eyes: No Eye Pain, No Swelling, No Redness Cardiovascular : No Chest Pain, No SOB, No Dyspnea on Exertion Respiratory : No Cough, No Sputum Gastrointestinal : No Nausea, No Vomiting, No Diarrhea, No abdominal Pain Genitourinary : No Dysuria, No Urinary Frequency, No Hematuria, Musculoskeletal : No joint pain, No Myalgias, No Joint Swelling Skin : No Skin Lesions, No rash Neuro : No Weakness, No Numbness, No Dizziness, positive Headache Psych : No Anxiety/Panic, No Depression Heme/Lymph: No Bruising, No Bleeding,No Lymphadenopathy Endocrine : No Polyuria, No Polydipsia Yes all other systems are reviewed and are negative FORMERLY [facility], [facility] Past Medical History Attestation statement: The following information was validated with the patient. Source: old records reviewed Social History Social History Alcohol intake: current Alcohol intake frequency: holidays/special occasions only Smoked in Last 30 Days: No Advance Directives: No Advance Directives Information Provided: No Sexual orientation: Straight/Heterosexual Gender identity: Female Physical Exam Vital Signs: Vital Signs: Last Vital Signs Temp 98.1 F 05/05/22 07:10 Pulse 65 05/05/22 07:10 Resp 18 05/05/22 07:10 BP 117/65 05/05/22 07:10 Pulse Ox 99 05/05/22 07:10 O2 Del Method 05/05/22 07:10 BMI result Body Mass Index 28.5 Appearance: Alert.?Oriented to person, place and time. No acute distress.?Normal affect. Head: Normocephalic, atraumatic Eyes: Pupils equal, round and reactive to light. EOMI. No nystagmus. No tenderness to palpation over the temporal region. ENT: External auditory canal normal tympanic membrane pearly nova and intact bilaterally. Oropharynx normal. Neck: Normal inspection.? Neck supple. CVS: Heart sounds normal. Normal heart rate and rhythm.? Pulses normal.?? Respiratory: No respiratory distress.? Lung sounds clear to auscultation bilaterally?? Abdomen: Soft and non-tender. Normoactive bowel sounds. ?? Skin: Skin warm and dry.? Normal skin color.? ?? Extremities: No lower extremity edema.? Neuro: Moves all extremities spontaneously. Sensation intact bilaterally. CN II-XII intact. No focal neuro deficits. Ambulatory with steady gait. Course Course Course Narrative: Patient is a 27-year-old female with past medical history of migraine headaches who presents emergency department today for evaluation of a migraine. One resolving with typical remedies at home; Excedrin. She is overall well-appearing, although is tearful reports of pain. Vital signs are stable. Afebrile without tachycardia, hypoxia, tachypnea. She has no focal neurological deficits upon the time of examination. Denies any possibility of . Will trial 1 L normal saline IV fluid, Toradol IV, Reglan IV, and Benadryl IV. Disposition pending results Reevaluation(s) Reevaluation #1: Headache has resolved at this time. Very low suspicion for ICH/SAH. Discussed plan of care for discharge home. Will provide prescription for sumatriptan. Reviewed worsening signs and symptoms to return back to the emergency department for. Advised outpatient follow-up with her primary care provider within 3 days. All questions were answered, she was discharged home in stable condition, ambulatory with a steady gait. Time: 10:30 [facility] - Headache Medical Records Attestation: I reviewed the patient's medical records. Lab Data Attestation: I reviewed the patient's lab results. Labs: Lab Results 05/05/22 05/05/22 Range/Units 08:23 08:23 Urine Color Yellow Urine Appearance Clear Urine pH 6.5 (5.0-9.0) Ur Specific [place] 1.010 (1.005-1.025) Urine Protein Negative (Neg-Trace) mg/dL Urine Glucose (UA) Negative (Negative) mg/dL Urine Ketones Negative (Negative) mg/dL Urine Blood Negative (Negative) Urine Nitrite Negative (Negative) Ur Leukocyte Esterase Negative (Negative) Urine Test NEGATIVE (NEGATIVE) Discharge Plan Discharge Clinical Impression: Migraine Patient Disposition: Home, Self-Care Instructions: Migraine Headache (ED) Additional Instructions: As we discussed, your headache is likely due to your chronic migraines. You have been given a new prescription for sumatriptan to use as needed for headache, may take up to 2 doses daily, at least 2 hours apart. Please contact your primary care provider and arrange for a follow-up visit within 3 days. Return to the emergency department any new or worsening symptoms or concerns. Prescriptions: New sumatriptan succinate 50 mg tablet See Rx Instructions .ROUTE .COMPLEX Qty: 14 0RF Rx Instructions: take 1 tab at onset of headache; if no relief may repeat 1 tab after at least 2 hrs; max = 4 tabs/24 hr No Action sumatriptan 5 mg/actuation spray,non-aerosol 5 mg intranasal Q2-4H PRN (Reason: migraine headache) Qty: 6 0RF Rx Instructions: into each nostril once; if headache remains, may repeat total dose once after at least 2 hours clomiphene citrate 50 mg tablet 50 mg PO DAILY 5 Days Qty: 30 0RF Referrals: Arthur Strange MD [Primary Care Provider] - Interventions: ED Discharge Assessment Last Done: 05/05/22 11:04 Discharge Date/Time: 05/05/22 11:05
[2022-05-05 08:31] LABS: Appearance Urine Clear; Color Urine Yellow; Glucose Urine UA Negative (Negative); Leukocyte Esterase Urine Negative (Negative); Nitrite Urine Negative (Negative); PH 6.5 (5.0-9.0); Urine Blood Negative (Negative); Urine Ketones Negative (Negative); Urine Protein Negative (Neg-Trace)
[2022-05-05 08:34] LABS: UPreg QC Valid YES; Urine Pregnancy NEGATIVE (NEGATIVE)
[2022-05-05] MEDS: Ketorolac Tromethamine 30 MG/ML VIAL IVPUSH (08:44)
[2022-05-05] MEDS: diphenhydrAMINE HCL 50 MG/ML VIAL 25 MG IVPUSH (08:44)
[2022-05-05] MEDS: Metoclopramide HCl 10 MG/2 ML VIAL IVPUSH (08:44)
[2022-05-05] MEDS: 0.9 % Sodium Chloride 1,000 ML 999 ML IV (08:45)
--- NOTE | 2022-05-05 08:53 | PC.NURSE ---
patient a/ox4 . jesusla . heart rate regular at 84 beats per minute . breathing even and unlabored . lungs clear . skin pink warm and dry . abdomen soft not tender . positive bowel sounds in all four quadrants . patient reports migraine that started at 2 am that woke her out of a sound sleep . patient has history of migraines tried to take Excedrin with no relief . IV placed in left A .C . medication administered as ordered with 25 mg of Benadryl , 30mg ketorolac tromethamine and 10mg of Reglan . IV fluids started as ordered . patient aware of plan of care .
--- NOTE | 2022-05-05 11:01 | PC.NURSE ---
patient a/ox4 . Went over discharge instructions as ordered by provider . Went over education on new medication patient has been prescribed Sumatriptian and proper dosing . patient given contact information for follow up with neurology . patient to return if symptoms worsen . no questions at this time.
== END 2022-05-05 11:05 | disposition home or self-care (01) ==
PROVIDERS: Nurse Practitioner Family; Emergency Provider Emergency Medicine; PCP Internal Medicine
DX: G43.909 Migraine, unspecified, not intractable, without status migrainosus (principal)
CPT/HCPCS: 81003; 81025; 96361; 96374; 96375; 99284; 99285; J1200; J1885; J2765

== ENCOUNTER 2022-07-09 10:50 | Emergency (ER) | payer OTHER, SELFPAY ==
--- NOTE | ~2022-07-09 | XR_ITS ---
EXAMINATION: XR CHEST CLINICAL INFORMATION: Shortness of breath COMPARISON: 09/12/2018 TECHNIQUE: 2 views of the chest were obtained. FINDINGS: No significant abnormality is noted involving the heart, lungs, mediastinum, bony thorax or soft tissues. XR/XR chest 2V IMPRESSION: Unremarkable examination.
[2022-07-09 11:07] VITALS: BP 104/70; PULSE 77; RESP 18; TEMP 36.1; O2SAT 100; BMI 26.5
--- NOTE | 2022-07-09 11:08 | ED.GENADULT ---
HPI - General Adult General Chief complaint: General Medical <TONIE Pizarro - Last Filed: 07/09/22 11:12> Stated complaint: SOB, body aches <TONIE Pizarro - Last Filed: 07/09/22 11:12> Time Seen by Provider: 07/09/22 11:28 <TONIE Pizarro - Last Filed: 07/09/22 11:12> Source: patient <TONIE Camara - Last Filed: 07/09/22 13:13> Mode of arrival: ambulatory <TONIE Camara - Last Filed: 07/09/22 13:13> Limitations: no limitations <TONIE Camara Last Filed: 07/09/22 13:13> History of Present Illness HPI narrative: Patient is a 27 year old assigned female at with no reported medical history presenting to the emergency department today with body aches and vomiting. Patient states that she has had body aches and vomited a few times since yesterday. Patient denies any dizziness, lightheadedness, abdominal pain, fever, chills, blurry vision, double vision, loss of vision, chest pain, difficulty breathing, shortness of breath, back pain, night sweats, pain with urination, increased urinary frequency, increased urinary urgency, blood in her urine or stool, syncope or a near syncopal episode, recent trauma or falls, bowel incontinence, bladder incontinence, bowel retention, bladder retention, or any other complaints at this time. <TONIE Camara - Last Filed: 07/09/22 13:13> Onset (ago): day(s) (1) <TONIE Camara - Last Filed: 07/09/22 13:13> Severity: mild <TONIE Camara Last Filed: 07/09/22 13:13> Severity scale (1-10): 2 <TONIE Camara - Last Filed: 07/09/22 13:13> Relieving factors: none <TONIE Camara Last Filed: 07/09/22 13:13> Exacerbating factors: none <TONIE Camara Last Filed: 07/09/22 13:13> Associated symptoms: nausea/vomiting <TONIE Camara - Last Filed: 07/09/22 13:13> Treatments prior to arrival: none <TONIE Camara - Last Filed: 07/09/22 13:13> Related Data Home medications: Previous Rx's Medication Instructions Recorded clomiphene citrate 50 mg tablet 50 mg PO DAILY 5 days #30 tabs 07/06/20 sumatriptan 5 mg/actuation nasal 5 mg intranasal Q2-4H PRN migraine 10/25/20 spray headache #6 ea sumatriptan succinate 50 mg tablet See Rx Instructions PO .COMPLEX 05/05/22 #14 tabs <TONIE Pizarro - Last Filed: 07/09/22 11:12> Allergies/adverse reactions: Allergies Allergy/AdvReac Type Severity Reaction Status Date / Time No Known Allergies Allergy Verified 07/09/22 11:10 <TONIE Pizarro - Last Filed: 07/09/22 11:12> Review of Systems Constitutional: Constitutional: Reports no additional constitutional complaints, Reports body ache(s), Denies chills, Denies fever(s) and Denies night sweats <TONIE Camara - Last Filed: 07/09/22 13:13> Eyes: Eyes: Reports no additional eye complaints, Denies blurry vision, Denies change in vision, Denies diplopia, Denies eye discharge, Denies loss of vision and Denies eye pain <TONIE Camara - Last Filed: 07/09/22 13:13> ENT: Denies dizziness <TONIE Camara - Last Filed: 07/09/22 13:13> Cardiovascular: Cardiovascular: Reports no additional cardiovascular complaints, Denies chest pain, Denies lightheadedness, Denies Loss of Consciousness and Denies dyspnea <TONIE Camara Last Filed: 07/09/22 13:13> Respiratory: Respiratory: Reports no additional respiratory complaints and Denies dyspnea <TONIE Camara - Last Filed: 07/09/22 13:13> Gastrointestinal: Gastrointestinal: Reports no additional gastrointestinal complaints, Denies abdominal pain, Denies melena, Denies hematochezia, Denies change in bowel habits, Denies change in stool character and Reports vomiting <TONIE Camara - Last Filed: 07/09/22 13:13> Genitourinary: Genitourinary: Denies hematuria, Denies urinary frequency, Denies dysuria, Denies urinary incontinence, Denies urinary hesitancy and Denies urinary urgency <TONIE Camara - Last Filed: 07/09/22 13:13> Musculoskeletal: Musculoskeletal: Reports no additional musculoskeletal complaints, Denies numbness and Denies tingling <TONIE Camara - Last Filed: 07/09/22 13:13> Neurologic: Denies dizziness, Denies loss of vision, Denies numbness and Denies tingling <TONIE Camara - Last Filed: 07/09/22 13:13> Psychiatric: Psychiatric: Reports no additional psychiatric complaints <TONIE Camara - Last Filed: 07/09/22 13:13> Endocrine: Endocrine: Reports no additional endocrine complaints <TONIE Camara - Last Filed: 07/09/22 13:13> Hematologic/Lymphatic: Hematologic/Lymphatic: Reports no additional hematologic/lymphatic complaints <TONIE Camara - Last Filed: 07/09/22 13:13> Allergic/Immunologic: Allergic/Immunologic: Reports no additional allergic/immunologic complaints <TONIE Camara - Last Filed: 07/09/22 13:13> PMF Past Medical History Attestation statement: The following information was validated with the patient. <TONEI Camara - Last Filed: 07/09/22 13:13> Source: old records reviewed and nursing notes reviewed <TONIE Camara - Last Filed: 07/09/22 13:13> Social History Social History: Social History Alcohol intake: current Alcohol intake frequency: holidays/special occasions only Advance Directives: No Sexual orientation: Straight/Heterosexual Gender identity: Female <TONIE Pizarro - Last Filed: 07/09/22 11:12> Physical Exam ED Vital Signs: Vital Signs - 24 hr 07/09/22 11:07 Temperature 97.0 F Pulse Rate 77 Respiratory Rate 18 Blood Pressure 104/70 Pulse Oximetry 100 Oxygen Delivery Method Room Air BMI result Body Mass Index 26.5 <TONIE Pizarro - Last Filed: 07/09/22 11:12> Vital Signs - 24 hr 07/09/22 11:07 Temperature 97.0 F Pulse Rate 77 Respiratory Rate 18 Blood Pressure 104/70 Pulse Oximetry 100 Oxygen Delivery Method Room Air BMI result Body Mass Index 26.5 <TONIE Camara - Last Filed: 07/09/22 13:13> Const General: cooperative, no acute distress, alert and awake <TONIE Camara - Last Filed: 07/09/22 13:13> Nutritional Appearance: well nourished <TONIE Camara - Last Filed: 07/09/22 13:13> Orientation/consciousness: patient oriented x3 <TONIE Camara - Last Filed: 07/09/22 13:13> Limitations: no limitations <TONIE Camara - Last Filed: 07/09/22 13:13> HENMT Head: Yes normal to inspection and Yes atraumatic <TONIE Camara - Last Filed: 07/09/22 13:13> Ears: hearing grossly normal bilaterally and external ears normal <TONIE Camara - Last Filed: 07/09/22 13:13> General nose exam: Normal external nose present, no nasal discharge noted and no epistaxis <TONIE Camara - Last Filed: 07/09/22 13:13> Face and sinus: Yes normal facial exam, No abrasion and No laceration <Kelsi Charles [place] - Last Filed: 07/09/22 13:13> Mouth: Normal oral and palatal mucosa present, no drooling and no muffled voice <TONIE Camara - Last Filed: 07/09/22 13:13> Eyes General: appearance normal, both eyes and all related structures <TONIE Camara - Last Filed: 07/09/22 13:13> Periorbital: periorbital findings normal <TONIE Camara - Last Filed: 07/09/22 13:13> Eyelids: Yes eyelids normal <TONIE Camara - Last Filed: 07/09/22 13:13> Conjunctivae: conjunctivae normal <TONIE Camara - Last Filed: 07/09/22 13:13> Pupils: Equal, round and reactive pupils present <TONIE Camara - Last Filed: 07/09/22 13:13> EOM: EOMs intact bilaterally <Kelsi Charles MT - Last Filed: 07/09/22 13:13> Neck Neck: Yes normal visual inspection, Yes full ROM and Yes no lymphadenopathy <Kelsi Charles MT - Last Filed: 07/09/22 13:13> Chest Chest palpation & inspection: normal inspection of the chest <Kelsi Charles MT - Last Filed: 07/09/22 13:13> Resp Effort & Inspection: normal respiratory effort and able to speak in complete sentences <Kelsi Charles MT - Last Filed: 07/09/22 13:13> Auscultation: clear to auscultation bilaterally <Kelsi Charles MT - Last Filed: 07/09/22 13:13> Cardio Rate: regular rate <Kelsi Charles MT - Last Filed: 07/09/22 13:13> Rhythm: regular rhythm <Kelsi Charles MT - Last Filed: 07/09/22 13:13> GI Inspection: Yes normal to inspection <Kelsi Charles MT - Last Filed: 07/09/22 13:13> Palpation (GI): Soft to palpation, not firm, nontender, no guarding and not rigid <Kelsi Charles MT - Last Filed: 07/09/22 13:13> Neuro General: patient oriented x3 and moves all extremities <Kelsi Charles MT - Last Filed: 07/09/22 13:13> Cranial nerves: Yes Equal, round and reactive pupils present <Kelsi Charles MT - Last Filed: 07/09/22 13:13> Cognition (Neuro): normal cognition <Kelsi Charles MT - Last Filed: 07/09/22 13:13> Motor exam (neuro): 5/5 motor strength present throughout <Kelsi Charles MT - Last Filed: 07/09/22 13:13> Sensory Exam: Normal double simultaneous stimulation for sensation <Kelsi Charles MT - Last Filed: 07/09/22 13:13> Coordination: [id number] test normal <Kelsi Charles MT - Last Filed: 07/09/22 13:13> Extrem General: Yes normal to inspection, Yes full ROM and Yes capillary refill normal <TONIE Camara - Last Filed: 07/09/22 13:13> Psych Appearance: grossly normal <TONIE Camara - Last Filed: 07/09/22 13:13> Mental Status: mental status grossly normal <TONIE Camara - Last Filed: 07/09/22 13:13> Affect: normal affect <TONIE Camara - Last Filed: 07/09/22 13:13> Attitude: cooperative <TONIE Camara - Last Filed: 07/09/22 13:13> Thought process: Normal thought process present <TONIE Camara - Last Filed: 07/09/22 13:13> Thought content: Normal thought content present <TONIE Camara Last Filed: 07/09/22 13:13> Insight: Good insight present (Psych) <TONIE Camara - Last Filed: 07/09/22 13:13> Course Course Course Narrative: RME - 27 yo female presents to the ER for evaluation of fever, body aches, SOB, cough and 1x vomiting dark bloody vomitus today. Symptoms started yesterday. No abdominal pain. Mom admitted yesterday with PNA. VSS and nontoxic appearing. Labs and viral swabs ordered along w/ CXR. <TONIE Pizarro - Last Filed: 07/09/22 11:12> Medical Decision Making Medical Decision Making MDM Narrative: Patient is a 27 year old assigned female at with no reported medical presenting to the emergency department today with body aches and vomiting. Patient's physical exam was unremarkable. Patient's blood work was unremarkable. Patient's chest x-ray showed no acute process. Patient's COVID-19 test was positive. I explained my physical exam findings as well as all test results to the patient. I answered all questions asked by the patient. I stressed the importance of the patient taking her medication as prescribed. I stressed the importance of the patient following up with her primary care provider. I stressed the importance of the patient returning to the emergency department immediately if her symptoms were to worsen or if she were to develop any dizziness, shortness of breath, difficulty breathing, chest pain, blurry vision, loss of vision, nausea, vomiting, abdominal pain, fever, chills, back pain, or any other complaints. Patient verbalized agreement and understanding with this treatment plan and discharge. <TONIE Camara - Last Filed: 07/09/22 13:13> Differential Diagnosis Differential Diagnoses: The differential diagnosis associated with the presentation includes <TONIE Camara - Last Filed: 07/09/22 13:13> COVID-19, viral illness <TONIE Camara - Last Filed: 07/09/22 13:13> Lab Data MDM Lab Attestation statement: I reviewed the patient's lab results. <TONIE Camara - Last Filed: 07/09/22 13:13> Result Diagrams: 07/09/22 11:35 07/09/22 11:35 <TONIE Pizarro - Last Filed: 07/09/22 11:12> Labs: Lab Results 07/09/22 07/09/22 07/09/22 Range/Units 11:35 11:35 11:35 WBC 5.0 (4.8-10.8) X10*3/uL RBC 4.39 (4.20-5.50) X10*6/uL Hgb 14.2 (12.0-16.0) g/dl Hct 41.2 (37.0-47.0) % MCV 93.8 (80.0-98.0) fL MCH 32.3 (27.0-33.0) pg MCHC 34.5 (31.0-35.0) g/dl RDW 11.9 (11.0-16.0) % Plt Count 251 D (160-400) X10*3/uL MPV 10.7 (9.4-12.3) fL Immature Gran % (Auto) 0.2 (0.0-0.4) % Neut % (Auto) 64.7 (45-73) % Lymph % (Auto) 23.6 (20-40) % Bailey % (Auto) 11.1 H (2-11) % Eos % (Auto) 0.0 (0-4) % Baso % (Auto) 0.4 (0-2) % Lymph # (Auto) 1.2 (1.2-4.9) X10*3/uL Bailey # (Auto) 0.6 (0.1-1.2) X10*3/uL Eos # (Auto) 0.0 (0.0-0.4) X10*3/uL Baso # (Auto) 0.0 (0.0-0.2) X10*3/uL Abs Immat Gran (auto) 0.01 (0.00-0.03) X10*3/uL Absolute Neuts (auto) 3.2 (2.0-8.3) x10*3/uL Absolute Nucleated RBC 0.000 (0.0-0.012) X10*3/uL Nucleated RBC % (auto) 0.0 (0.0-0.2) /100WBC Sodium (135-145) mmol/L Potassium (3.3-5.1) mmol/L Chloride (96-108) mmol/L Carbon Dioxide (22-29) mmol/L Anion Gap (12-20) BUN (9-16) mg/dL Creatinine (0.5-1.4) mg/dL Estim Creat Clear Calc Estimated GFR Random Glucose (60-115) mg/dL Calcium (8.4-10.2) mg/dL Total Bilirubin (0.0-1.0) mg/dL Direct Bilirubin (0.0-0.5) mg/dL AST (5-31) U/L ALT (0-31) U/L Alkaline Phosphatase (39-117) U/L Total Protein (6.5-8.0) g/dL Albumin (3.5-5.0) g/dL COVID-19 (DANIEL) Positive A (Negative) COVID-19 Clin Com See Note Influenza Type A (SUE) Negative (Negative) Influenza Type B (SUE) Negative (Negative) Influenza A & B Note See Note 07/09/22 Range/Units 11:35 WBC (4.8-10.8) X10*3/uL RBC (4.20-5.50) X10*6/uL Hgb (12.0-16.0) g/dl Hct (37.0-47.0) % MCV (80.0-98.0) fL MCH (27.0-33.0) pg MCHC (31.0-35.0) g/dl RDW (11.0-16.0) % Plt Count (160-400) X10*3/uL MPV (9.4-12.3) fL Immature Gran % (Auto) (0.0-0.4) % Neut % (Auto) (45-73) % Lymph % (Auto) (20-40) % Bailey % (Auto) (2-11) % Eos % (Auto) (0-4) % Baso % (Auto) (0-2) % Lymph # (Auto) (1.2-4.9) X10*3/uL Bailey # (Auto) (0.1-1.2) X10*3/uL Eos # (Auto) (0.0-0.4) X10*3/uL Baso # (Auto) (0.0-0.2) X10*3/uL Abs Immat Gran (auto) (0.00-0.03) X10*3/uL Absolute Neuts (auto) (2.0-8.3) x10*3/uL Absolute Nucleated RBC (0.0-0.012) X10*3/uL Nucleated RBC % (auto) (0.0-0.2) /100WBC Sodium 138 (135-145) mmol/L Potassium 4.2 (3.3-5.1) mmol/L Chloride 104 (96-108) mmol/L Carbon Dioxide 27 (22-29) mmol/L Anion Gap 11 L (12-20) BUN 7 L (9-16) mg/dL Creatinine 0.73 (0.5-1.4) mg/dL Estim Creat Clear Calc 101.2 Estimated GFR > 60 Random Glucose 91 (60-115) mg/dL Calcium 9.4 D (8.4-10.2) mg/dL Total Bilirubin 0.7 (0.0-1.0) mg/dL Direct Bilirubin 0.2 (0.0-0.5) mg/dL AST 18 (5-31) U/L ALT 12 (0-31) U/L Alkaline Phosphatase 66 (39-117) U/L Total Protein 7.1 (6.5-8.0) g/dL Albumin 4.4 (3.5-5.0) g/dL COVID-19 (DANIEL) (Negative) COVID-19 Clin Com Influenza Type A (SUE) (Negative) Influenza Type B (SUE) (Negative) Influenza A & B Note <TONIE Pizarro - Last Filed: 07/09/22 11:12> Lab Results 07/09/22 07/09/22 07/09/22 Range/Units 11:35 11:35 11:35 WBC 5.0 (4.8-10.8) X10*3/uL RBC 4.39 (4.20-5.50) X10*6/uL Hgb 14.2 (12.0-16.0) g/dl Hct 41.2 (37.0-47.0) % MCV 93.8 (80.0-98.0) fL MCH 32.3 (27.0-33.0) pg MCHC 34.5 (31.0-35.0) g/dl RDW 11.9 (11.0-16.0) % Plt Count 251 D (160-400) X10*3/uL MPV 10.7 (9.4-12.3) fL Immature Gran % (Auto) 0.2 (0.0-0.4) % Neut % (Auto) 64.7 (45-73) % Lymph % (Auto) 23.6 (20-40) % Bailey % (Auto) 11.1 H (2-11) % Eos % (Auto) 0.0 (0-4) % Baso % (Auto) 0.4 (0-2) % Lymph # (Auto) 1.2 (1.2-4.9) X10*3/uL Bailey # (Auto) 0.6 (0.1-1.2) X10*3/uL Eos # (Auto) 0.0 (0.0-0.4) X10*3/uL Baso # (Auto) 0.0 (0.0-0.2) X10*3/uL Abs Immat Gran (auto) 0.01 (0.00-0.03) X10*3/uL Absolute Neuts (auto) 3.2 (2.0-8.3) x10*3/uL Absolute Nucleated RBC 0.000 (0.0-0.012) X10*3/uL Nucleated RBC % (auto) 0.0 (0.0-0.2) /100WBC Sodium (135-145) mmol/L Potassium (3.3-5.1) mmol/L Chloride (96-108) mmol/L Carbon Dioxide (22-29) mmol/L Anion Gap (12-20) BUN (9-16) mg/dL Creatinine (0.5-1.4) mg/dL Estim Creat Clear Calc Estimated GFR Random Glucose (60-115) mg/dL Calcium (8.4-10.2) mg/dL Total Bilirubin (0.0-1.0) mg/dL Direct Bilirubin (0.0-0.5) mg/dL AST (5-31) U/L ALT (0-31) U/L Alkaline Phosphatase (39-117) U/L Total Protein (6.5-8.0) g/dL Albumin (3.5-5.0) g/dL COVID-19 (DANIEL) Positive A (Negative) COVID-19 Clin Com See Note Influenza Type A (SUE) Negative (Negative) Influenza Type B (SUE) Negative (Negative) Influenza A & B Note See Note 07/09/22 Range/Units 11:35 WBC (4.8-10.8) X10*3/uL RBC (4.20-5.50) X10*6/uL Hgb (12.0-16.0) g/dl Hct (37.0-47.0) % MCV (80.0-98.0) fL MCH (27.0-33.0) pg MCHC (31.0-35.0) g/dl RDW (11.0-16.0) % Plt Count (160-400) X10*3/uL MPV (9.4-12.3) fL Immature Gran % (Auto) (0.0-0.4) % Neut % (Auto) (45-73) % Lymph % (Auto) (20-40) % Bailey % (Auto) (2-11) % Eos % (Auto) (0-4) % Baso % (Auto) (0-2) % Lymph # (Auto) (1.2-4.9) X10*3/uL Bailey # (Auto) (0.1-1.2) X10*3/uL Eos # (Auto) (0.0-0.4) X10*3/uL Baso # (Auto) (0.0-0.2) X10*3/uL Abs Immat Gran (auto) (0.00-0.03) X10*3/uL Absolute Neuts (auto) (2.0-8.3) x10*3/uL Absolute Nucleated RBC (0.0-0.012) X10*3/uL Nucleated RBC % (auto) (0.0-0.2) /100WBC Sodium 138 (135-145) mmol/L Potassium 4.2 (3.3-5.1) mmol/L Chloride 104 (96-108) mmol/L Carbon Dioxide 27 (22-29) mmol/L Anion Gap 11 L (12-20) BUN 7 L (9-16) mg/dL Creatinine 0.73 (0.5-1.4) mg/dL Estim Creat Clear Calc 101.2 Estimated GFR > 60 Random Glucose 91 (60-115) mg/dL Calcium 9.4 D (8.4-10.2) mg/dL Total Bilirubin 0.7 (0.0-1.0) mg/dL Direct Bilirubin 0.2 (0.0-0.5) mg/dL AST 18 (5-31) U/L ALT 12 (0-31) U/L Alkaline Phosphatase 66 (39-117) U/L Total Protein 7.1 (6.5-8.0) g/dL Albumin 4.4 (3.5-5.0) g/dL COVID-19 (DANIEL) (Negative) COVID-19 Clin Com Influenza Type A (SUE) (Negative) Influenza Type B (SUE) (Negative) Influenza A & B Note <TONIE Camara - Last Filed: 07/09/22 13:13> Radiology Impression Discussion of test interpretation with radiology: I have reviewed the radiologist's reading. <TONIE Camara - Last Filed: 07/09/22 13:13> Radiologist Impression: My interpretation is in agreement with the radiologist's impression of this imaging study. EXAMINATION: XR CHEST CLINICAL INFORMATION: Shortness of breath COMPARISON: 09/12/2018 TECHNIQUE: 2 views of the chest were obtained. FINDINGS: No significant abnormality is noted involving the heart, lungs, mediastinum, bony thorax or soft tissues. XR/XR chest 2V IMPRESSION: Unremarkable examination. Dictated By: Christopher Gonzalez MD Signed By: Electronically signed by Christopher Gonzalez MD 07/09/22 1227 <TONIE Camara - Last Filed: 07/09/22 13:13> Discharge Plan Discharge Clinical Impression: COVID-19 virus infection <TONIE Pizarro - Last Filed: 07/09/22 11:12> Patient Disposition: Home, Self-Care <TONIE Pizarro - Last Filed: 07/09/22 11:12> Instructions: COVID-19 (Coronavirus Disease 2019) (ED) <TONIE Pizarro Last Filed: 07/09/22 11:12> Additional Instructions: Follow up with your primary care provider. Return to the emergency department immediately if your symptoms worsen or if you develop any dizziness, shortness of breath, difficulty breathing, chest pain, blurry vision, loss of vision, nausea, vomiting, abdominal pain, fever, chills, back pain, or any other complaints. <TONIE Pizarro - Last Filed: 07/09/22 11:12> Prescriptions: No Action sumatriptan 5 mg/actuation spray,non-aerosol 5 mg intranasal Q2-4H PRN (Reason: migraine headache) Qty: 6 0RF Rx Instructions: into each nostril once; if headache remains, may repeat total dose once after at least 2 hours sumatriptan succinate 50 mg tablet See Rx Instructions .ROUTE .COMPLEX Qty: 14 0RF Rx Instructions: take 1 tab at onset of headache; if no relief may repeat 1 tab after at least 2 hrs; max = 4 tabs/24 hr clomiphene citrate 50 mg tablet 50 mg PO DAILY 5 Days Qty: 30 0RF <TONIE Pizarro - Last Filed: 07/09/22 11:12> Referrals: [facility] [place] [facility] [place] Group] (Call to establish and follow up with a primary care provider. If you already have a primary care provider, please follow up with them. ) [facility] [place] [facility] [Provider Group] (Call to establish and follow up with a primary care provider. If you already have a primary care provider, please follow up with them. ) [facility] [place] [facility] [Provider Group] (Call to establish and follow up with a primary care provider. If you already have a primary care provider, please follow up with them. ) <TONIE Pizarro - Last Filed: 07/09/22 11:12> Stand Alone Forms: Work/School Release <TONIE Pizarro - Last Filed: 07/09/22 11:12> Interventions: ED Discharge Assessment Last Done: 07/09/22 12:45 <TONIE Pizarro - Last Filed: 07/09/22 11:12> Discharge Date/Time: 07/09/22 12:47 <TONIE Pizarro - Last Filed: 07/09/22 11:12> Print Language: Malay <TONIE Pizarro - Last Filed: 07/09/22 11:12>
--- OUTSIDE RECORDS SUMMARY | 2022-07-09 11:25 | XMS_ITS | Continuity of Care Document ---
:1995 Author Organization [facility] Adult Address [address] [place] [address]- Care Team Providers Name Role Phone Perico SCHILLING, Paula Waller Primary Care Physician [place] [facility] [place](s): 04/02/22 - 06/14/22 [facility] [address] [place] [id number] Attending Physician: Paula Bauer Allergies, Adverse Reactions, Alerts No Known Allergies Immunizations Given and Recorded Vaccine Date Status Refusal Reason hepatitis B adult vaccine 10/24/21 Recorded tetanus/diphtheria/pertussis, acel(Tdap) 11/19/20 Recorde d SARS-CoV-2 (COVID-19) mRNA-1273 vaccine 11/05/20 Recorded SARS-CoV-2 (COVID-19) mRNA-1273 vaccine 10/08/20 Recorded Medications PROzac 40 mg oral capsule 1 capsule = 40 mg, By Mouth, Daily, # 90 capsule, 0 Refills, Maintenance, 05/29/22 10:25:00 EST, Capsule, [id number], Partial fill upon patient request if the prescription is for a schedule II opioid drug., 158, cm, 05/29/22 9:57:00 EST, Height Start Date: 05/29/22 Status: OrderedSumatriptan Once, 0 Refills, Maintenance, 05/12/22 9:34:00 EST, Partial fill upon patient request if the prescription is for a schedule II opioid drug. Start Date: 05/12/22 Status: Ordered Problem List Condition Confirmation Course Effective Dates Status Health Stat us Informant Cannabis use Confirmed Active disorder, moderate, dependence SIMON (generalized Confirmed Active anxiety disorder) MDD (major Confirmed Active depressive disorder), recurrent episode, mild Social History Social History Type Response Smoking Status Never (less than 100 in life time) entered on: 04/02/22 Sex Patient Care team information Care Team PersonnelName: Paula Bauer [facility] Associate Professional Member Role: PCP Address: Address: [address] [place] [address] [address] [place] [address]- Name: Jann Solano NP, Shagufta James Position[facility] Associate Professional Member Role: Primary Care Nurse Address: Address: [address] [place] [address] [address] [facility] [place] [address]- Care Team Related PersonsName: BAL PELLETIER Address: home [address] [place] [address]
--- OUTSIDE RECORDS SUMMARY | 2022-07-09 11:25 | XMS_ITS | Continuity of Care Document ---
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 Refills 0, Maintenance, 04/02/22 16:23:00 EDT, Route to Pharmacy Electronically, [facility]/pharmacy #[id number], Partial fill upon patient request if the prescription is for a schedule II opioid . Start Date: 04/02/22 Status: Ordered Problem List Diagnosis Diagnosis Type Effective Dates Health Clinical Infor mant Status Service Fatigue Discharge 04/02/22 Diagnosis Migraines Discharge 04/02/22 Diagnosis Anxiety and Discharge 04/02/22 depression Diagnosis Female fertility Discharge 04/02/22 problem Diagnosis Vital Signs Most recent to oldest [Reference Range]: 1 Height 158.00 cm (04/02/22 3:08 PM) Weight 71.5 kg (04/02/22 3:08 PM) Oxygen Saturation [94-100 %] 100 % (04/02/22 3:08 PM) Pulse Rate [55-90 bpm] 77 bpm (04/02/22 3:08 PM) Body Mass Index [18.5-24.99 kg/m2] 28.64 kg/m2 *H* (04/02/22 3:08 PM) Blood Pressure [90-138/55-84 mm Hg] 104/66 mm Hg (04/02/22 3:08 PM) Temperature [96.8-100.4 DegF] 97.9 DegF (04/02/22 3:08 PM) Mode of Delivery (Oxygen) Room air (04/02/22 3:08 PM) Blood pressure sites Arm, left (04/02/22 3:08 PM) Temperature Route Temporal (04/02/22 3:08 PM) Weight Obtained Via Standing scale (04/02/22 3:08 PM) Social History Social History Type Response Smoking Status Never (less than 100 in life time) entered on: 04/02/22 Sex Patient Care team information PersonnelName: Paula Bauer Address: Address: [address] [place], [place] [address]
--- OUTSIDE RECORDS SUMMARY | 2022-07-09 11:25 | XMS_ITS | Continuity of Care Document ---
:1995 Author Organization [facility] Adult Address [address] [place] [address]- Care Team Providers Name Role Phone Paula Bauer Primary Care Phys[id number] - 06/05/22 [facility] Adult [address] [place] [address] Allergies, Adverse Reactions, Alerts No Known Allergies [...] information Care Team PersonnelName: Paula Bauer Position: [facility] PCO Associate Professional Member Role: PCP Address: Address: [address] [address] [facility] [place] [address]- Name: Jann Solano NP, Shagufta James Position: [facility]O Associate Professional Member Role: Primary Care Nurse Address: Address: [address] [place] [address], [address] [place] [address] [place] [address]- Care Team Related PersonsName: BAL PELLETIER Address: home [address] [place] [address]
--- OUTSIDE RECORDS SUMMARY | 2022-07-09 11:25 | XMS_ITS | Continuity of Care Document ---
:1995 [facility] Address [address] [place] [address], [address] [place] [address]- Care Team Providers Name Role Phone Paula Bauer Primary Care Physician Encounter [facility] [id number] Date(s): 04/03/22 - 07/02/22 [facility] [address], [address] [place] [address] Attending Physician: Not on Staff, Attending MD Referring Physician: Paula Bauer Allergies, Adverse Reactions, Alerts [...] Refills, Maintenance, 05/29/22 10:25:00 EST, Capsule, [id number], Partial fill upon patient request if the [...] Patient Care team information Care Team PersonnelName: Perico SCHILLING, Paula Waller Position: [facility] PCO Associate Professional Member Role: PCP Address: Address: [address] [place] [address]. [address] [place] [address]- [place] Name: Jann Solano NP, Shagufta James Position: [facility] PCO Associate Professional Member Role: Primary Care Nurse Address: Address: [address] [place] [address], [address] [facility] [place] [address]- Care Team Related PersonsName: BAL PELLETIER Address: home [address] [place] [address]
[2022-07-09 11:57] LABS: MANUAL DIFF FLAG NO
[2022-07-09 12:00] LABS: Basophils Percent Auto 0.4 % (0-2); Hematocrit 41.2 % (37.0-47.0); Hemoglobin 14.2 g/dl (12.0-16.0); Imm Gran Abs Auto 0.01 X10*3/uL (0.00-0.03); Imm Gran Pct Auto 0.2 % (0.0-0.4); Lymphocytes Absolute Auto 1.2 X10*3/uL (1.2-4.9); Lymphocytes Percent Auto 23.6 % (20-40); Mean Corpuscular HGB Conc 34.5 g/dl (31.0-35.0); Mean Corpuscular Hemoglobin 32.3 pg (27.0-33.0); Mean Corpuscular Volume 93.8 fL (80.0-98.0); Mean Platelet Volume 10.7 fL (9.4-12.3); Monocytes Absolute Auto 0.6 X10*3/uL (0.1-1.2); Monocytes Percent Auto 11.1 % (2-11); Neutrophils Absolute Auto 3.2 x10*3/uL (2.0-8.3); Neutrophils Percent Auto 64.7 % (45-73); Platelet Count 251 X10*3/uL (160-400); Red Blood Count 4.39 X10*6/uL (4.20-5.50); Red Cell Distribution Width 11.9 % (11.0-16.0)
[2022-07-09 12:12] LABS: COVID-19 Test Positive (Negative); IDNOW Serial# 9DB6401D
[2022-07-09 12:14] LABS: Alanine Aminotransferase 12 U/L (0-31); Albumin Level 4.4 g/dL (3.5-5.0); Alkaline Phosphatase 66 U/L (39-117); Anion Gap 11 (12-20); Aspartate Amino Transferase 18 U/L (5-31); Bilirubin Direct 0.2 mg/dL (0.0-0.5); Bilirubin Total 0.7 mg/dL (0.0-1.0); Blood Urea Nitrogen 7 mg/dL (9-16); Calcium 9.4 mg/dL (8.4-10.2); Carbon Dioxide 27 mmol/L (22-29); Chloride 104 mmol/L (96-108); Creatinine Clr Calc Pharmacy 101.2; Estimated Glomerular Filt Rate > 60; Glucose Random 91 mg/dL (60-115); Potassium 4.2 mmol/L (3.3-5.1); Sodium 138 mmol/L (135-145); Total Protein 7.1 g/dL (6.5-8.0)
[2022-07-09 12:22] LABS: IDNOW Serial# 55D5AD1C; Influenza A Negative (Negative); Influenza B2 Negative (Negative)
== END 2022-07-09 12:47 | disposition home or self-care (01) ==
PROVIDERS: Physician Assistant; Emergency Provider Student in an Organized Health Care Education/Training Program
DX: U07.1 COVID-19 (principal); R06.02 Shortness of breath; Z79.899 Other long term (current) drug therapy
CPT/HCPCS: 36415; 71046; 80048; 80076; 85025; 87502; 87635; 99282; 99283

== ENCOUNTER 2023-03-01 11:28 | Emergency (ER) | payer OTHER, SELFPAY ==
--- NOTE | 2023-03-01 11:40 | ED_ITS ---
HPI - Skin/Abscess/Foreign Bdy General Chief complaint: Skin/Abscess/Foreign Body Stated complaint: bump in right arm Time Seen by Provider: 03/01/23 11:40 Source: patient Mode of arrival: ambulatory Limitations: no limitations History of Present Illness HPI narrative: 27 yo female with no medical history here with complaints of left arm redness/swelling x 3 days. No fevers, chills, numbness, tingling, weakness extremity. Related Data Previous Rx's Medication Instructions Recorded clomiphene citrate 50 mg tablet 50 mg PO DAILY 5 days #30 tabs 07/06/20 sumatriptan 5 mg/actuation nasal 5 mg intranasal Q2-4H PRN migraine 10/25/20 spray headache #6 ea sumatriptan succinate 50 mg tablet See Rx Instructions PO .COMPLEX 05/05/22 #14 tabs doxycycline monohydrate 100 mg 100 mg PO BID #20 tabs 03/01/23 tablet Allergies Allergy/AdvReac Type Severity Reaction Status Date / Time No Known Allergies Allergy Verified 03/01/23 11:41 Review of Systems Review of Systems: Yes all other systems are reviewed and are negative Constitutional: Constitutional: Reports no additional constitutional complaints, Denies body ache(s), Denies chills, Denies fever(s), Denies headache(s) and Denies weakness Eyes: Eyes: Reports no additional eye complaints and Denies change in vision ENT: Reports system reviewed and no additional complaints, except as documented, Denies dizziness, Denies headache(s), Denies nasal congestion, Denies nasal discharge and Denies neck pain Cardiovascular: Cardiovascular: Reports no additional cardiovascular complaints, Denies chest pain, Denies leg edema and Denies dyspnea Respiratory: Respiratory: Reports no additional respiratory complaints, Denies cough and Denies dyspnea Gastrointestinal: Gastrointestinal: Reports no additional gastrointestinal complaints, Denies abdominal pain, Denies diarrhea, Denies nausea and Denies vomiting Genitourinary: Genitourinary: Reports no additional female genitourinary complaints and Denies urinary incontinence Musculoskeletal: Musculoskeletal: Reports no additional musculoskeletal complaints, Denies back pain, Denies arthralgias, Denies joint swelling, Denies neck pain, Denies numbness and Denies tingling Integumentary/Breasts: Skin/Breast: Reports system reviewed and no additional complaints, except as docu, Reports swelling, Reports erythema and Denies rash Neurologic: Reports system reviewed and no additional complaints, except as documented, Denies Abnormal speech present, Denies dizziness, Denies headache(s), Denies numbness, Denies tingling and Denies weakness PMFSH Past Medical History Attestation statement: The following information was validated with the patient. Source: old records reviewed and nursing notes reviewed Social History Social History Alcohol intake: current Alcohol intake frequency: holidays/special occasions only Advance Directives: No Advance Directives Information Provided: No Sexual orientation: Straight/Heterosexual Gender identity: Female Physical Exam Vital Signs: Vital Signs: Last Vital Signs Temp 98 F 03/01/23 11:41 Pulse 71 03/01/23 11:41 Resp 16 03/01/23 11:41 BP 140/71 H 03/01/23 11:41 Pulse Ox 97 03/01/23 11:41 O2 Del Method Room Air 03/01/23 11:41 BMI result Body Mass Index 24.8 Const: General: cooperative, healthy appearing, comfortable and no acute distress Orientation/consciousness: patient oriented x3 Limitations: no limitations HEENT: Head: Yes normal to inspection Ears: hearing grossly normal bilaterally General nose exam: Normal external nose present Face and sinus: Yes normal facial exam Mouth: Normal oral and palatal mucosa present Throat: Yes posterior oropharynx normal Eyes: General: appearance normal, both eyes and all related structures Pupils: Equal, round and reactive pupils present Neck: Neck: Yes normal visual inspection Chest: Chest palpation & inspection: normal inspection of the chest Resp: Effort & Inspection: normal respiratory effort Auscultation: clear to auscultation bilaterally Cardio: Rate: regular rate Rhythm: regular rhythm Peripheral pulses: Peripheral pulses 2+ throughout GI: Inspection: Yes normal to inspection Palpation (GI): Soft to palpation and nontender Auscultation: normal bowel sounds Back/Spine/Pelvis: Thoracic/Lumbar Spine: thoracic and lumbar spine normal to inspection Skin: General skin exam: no rashes or lesions noted Neuro: General: patient oriented x3, no focal motor deficits and normal sensation to monofilament Cranial nerves: Yes Equal, round and reactive pupils present Cognition (Neuro): normal cognition Speech: No Abnormal speech present Gait exam (Neuro): Normal gait present Motor exam (neuro): 5/5 motor strength present throughout Extrem: Other: To the left posterior bicep to there is a area of erythema, warmth, slight swelling which is circular. The areas are blanchable. It is not circumferential. CMS is intact distally. Medical Decision Making Medical Decision Making [facility] Narrative: 27-year-old female previously healthy here with complaints of left upper arm swelling and redness for the last 3 days. No known injury or trauma. On exam the patient appears to have a small area of cellulitis. May be secondary to an insect bite. It is not circumferential. She has no systemic signs or symptoms concerning for infection. The areas are soft and compressible Patient will be started on oral antibiotics. Recommend supportive care at home with Motrin Tylenol and Benadryl for itching as needed. Reviewed worrisome signs and symptoms of when to return to the emergency room. Comfortable plan for discharge home. Differential Diagnosis Differential Diagnoses: The differential diagnosis associated with the presentation includes Cellulitis Low concern for compartment syndrome, necrotizing fasciitis. Admission/Observation Consideration of admission/observation: Escalation of care including admission/observation considered The area is not circumferential. There are no systemic signs or symptoms necessitating IV antibiotics and admission Prescription Management I considered prescription management with: Antibiotic See discussion Discharge Plan Discharge Clinical Impression: Cellulitis Patient Disposition: Home, Self-Care Instructions: Cellulitis (ED), Warm Compress or Soak (ED) Additional Instructions: Motrin or Tylenol for pain as needed Use Benadryl for itching Return for fever, increasing redness or swelling of the extremity Prescriptions: New doxycycline monohydrate 100 mg tablet 100 mg PO BID Qty: 20 0RF No Action sumatriptan 5 mg/actuation spray,non-aerosol 5 mg intranasal Q2-4H PRN (Reason: migraine headache) Qty: 6 0RF Rx Instructions: into each nostril once; if headache remains, may repeat total dose once after at least 2 hours sumatriptan succinate 50 mg tablet See Rx Instructions .ROUTE .COMPLEX Qty: 14 0RF Rx Instructions: take 1 tab at onset of headache; if no relief may repeat 1 tab after at least 2 hrs; max = 4 tabs/24 hr clomiphene citrate 50 mg tablet 50 mg PO DAILY 5 Days Qty: 30 0RF Referrals: Physician,Unknown J [Primary Care Provider] - 10 days
[2023-03-01 11:41] VITALS: BP 140/71; PULSE 71; RESP 16; TEMP 36.6; O2SAT 97; BMI 24.8
--- OUTSIDE RECORDS SUMMARY | 2023-03-01 11:52 | XMS_ITS | Continuity of Care Document ---
Author Name Unknown Organization [facility] Address [address] [place] [address]- Care Team Providers Care Guinea Pig Breeder Name Role Phone Paula Bauer Primary Care Physician Encounter [facility] Date(s): 07/29/22 - 08/05/22 [facility] [address] [place] [address]- Attending Physician: Not on Staff, Attending MD Referring Physician: Paula Bauer Allergies, Adverse Reactions, Alerts No Known Allergies Immunizations Given and Recorded Vaccine Date Status Refusal Reason hepatitis B adult vaccine 10/24/21 Recorded tetanus/diphtheria/pertussis, acel(Tdap) 11/19/20 Recorded SARS-CoV-2 (COVID-19) mRNA-1273 vaccine 11/05/20 R ecorded SARS-CoV-2 (COVID-19) mRNA-1273 vaccine 10/08/20 R ecorded Medications PROzac 40 mg oral capsule 1 capsule = 40 mg, By Mouth, Daily, # 30 capsule, 2 Refills, Maintenance, 07/10/22 15:25:00 EST, Capsule, [id number], Partial fill upon patient request if the prescription is for a schedule II opioid drug., 158, cm, 07/10/22 15:03:00 EST, Height Start Date: 07/10/22 Status: Ordered rizatriptan 10 mg oral tablet 1 tablet = 10 mg, By Mouth, Once, PRN for migraine headache, # 9 tablet, 1 Refills, Soft Stop, 07/17/22 15:40:00 EST, Tablet, [id number], Partial fill upon patient request if the prescriptionis for a schedule II opioid drug., 158, cm, ... Start Date: 07/17/22 Status: Ordered Problem List Condition Confirmation Course Effective Dates Status Health St atus Informant Cannabis use disorder, moderate, dependence Confirmed Active Eczema Confirmed Active SIMON (generalized anxiety disorder) Confirmed Active Migraine Confirmed Active MDD (major depressive disorder), recurrent episode, mild Confirmed Active Vital Signs Most recent to oldest [Reference Range]: 1 Height 158 cm (07/29/22 9:04 AM) Weight 70.9 kg (07/29/22 9:04 AM) Body Mass Index [18.5-24.99 kg/m2] 28.4 kg/m2 *H* (07/29/22 9:04 AM) Blood Pressure [90-138/55-84 mm Hg] 113/ 66mm Hg (07/29/22 9:04 AM) Blood pressure sites Arm, left (07/29/22 9:04 AM) Weight Obtained Via Standing scale (07/29/22 9:04 AM) Social History Social History Type Response Smoking Status Never (less than 100 in lifetime) entered on: 04/02/22 Sex Note * Petty Osorio MA: PERFORM, SIGN, VERIFY Event Display: Patient Education/Instruction Authored Date: [id number] [facility] *[facility] Clinical Summary Name INES MEI Age 27 Years 1995 PCP Perico SCHILLING, Paula Waller PCP Visit Date 07/29/2022 08:40:00 Additional Instructions: Scheduled Appointments?? Future Appointments ?*[facility] ?[address],??[address] ?Phone:??--?Fax:??-- ?Appt. Date:??08/18/2022?11:40 AM ?Scheduled Provider:??Perico SCHILLING, Paula Waller ?[facility] ?Phone:??--?Fax:??-- ?Appt. Date:??08/22/2022?8:00 AM ?Scheduled Provider:??Vasc [facility] ?[facility] ?Phone:??--?Fax:??-- ?Appt. Date:??08/22/2022?8:45 AM ?Scheduled Provider:??Echo [place] ?*[place] ?[address] ?[place],??[place],??[address] ?Phone:??--?Fax:??-- ?Appt. Date:??09/11/2022?4:20 PM ?Scheduled Provider:??Rupesh Guzman MD Follow-Up Instructions ?? Diagnosis Dysmenorrhea, unspecified; Cannabis use, unspecified, uncomplicated; Female infertility, unspecified Medications: Please continue your medications until treatment is completed or stopped by your provider. Discuss any questions related to medications with your provider. Medications to Continue with No Changes These medications were not printed or sent to your pharmacy Fluoxetine (PROzac 40 mg oral capsule) 1 capsule Oral Daily. Refills: 2. Next Dose: Rizatriptan (rizatriptan 10 mg oral tablet) 1 tab(s) Oral once as needed for migraine headache. Refills: 1. Next Dose: Allergy Info:?? NKA Medications Given This Visit Future Orders ?HIV Ab-Ag 4th Generation? Order Date:07/29/22?- Complete by?07/29/22 ?Hepatitis C Ab? Order Date:07/29/22?- Complete by?07/29/22 ?Syphilis Testing formerly ordered as RPR? Order Date:07/29/22?- Complete by?07/29/22 ?Hepatitis B Core Ab? Order Date:07/29/22?- Complete by?07/29/22 ?Hemoglobin A1C (Monitoring)? Order Date:07/29/22?- Complete by?07/29/22 ?Rubella (English Measles) IgM? Order Date:07/29/22?- Complete by?07/29/22 ?LH? Order Date:07/29/22?- Complete by?07/29/22 ?FSH? Order Date:07/29/22?- Complete by?07/29/22 ?Prolactin Level? Order Date:07/29/22?- Complete by?07/29/22 ?Anti Mullerian Hormone? Order Date:07/29/22?- Complete by?07/29/22 ?Estradiol (Female >= 16yrs)? Order Date:07/29/22?- Complete by?07/29/22 Vital Signs Height 158 cm Weight 70.9 kg BMI 28.4 kg/m2 Blood Pressure 113 mm Hg/66 mm Hg Temperature Pulse Rate Respiratory Rate 02 Sat Mode of Delivery / You can now view a summary of your hospital visit from the comfort of your home through a free online portal called [employer]. [employer] is a website that allows you to securely view your medical information including discharge summary, medications and follow-up visits. ??You can alsosend a secure electronic message to your doctor???s office to request appointments, renew medications or just ask a question. You can enroll at [email or web address] or register during your next office visit. Disclaimer:?? The information provided is of a general nature and is intended to be used in conjunction with the recommendations and advice of your health care practitioner. ??Every effort has been made to ensure that the information provided is accurate and complete at the time it is provided to you however, as your needs change, or, as new ??information becomes available, different or additional instructions may be required. If you have questions, please consult with your primary care provider or pharmacist, as appropriate. ??This information is not intended to serve as substitution for assessment and evaluation by a qualified health care provider. If you do not have a primary care provider, you may find a [facility] provider by calling [facility] [employer] Link at [phone]. For information about the plan of care including goals and instructions for your diagnosis, please see the patient education orders section of this document. Patient Education Materials?? The content of this educational material or handout may have been modified, supplemented, or adapted from its original content and format to support your individualized medical care. Patient Care team information Care Team Personnel Name: Perico SCHILLING, Paula Waller Position: [facility] PCO Associate Professional Member Role: PCP Address: Address: [address] [place] [address]- Name: Jann Solano NP, Shagufta James Position: [facility] PCO Associate Professional Member Role: Primary Care Nurse Address: Address: [address] [place] [address]- Care Team Related Persons Name: BAL PELLETIER Address: home [address] [place] [address]
--- OUTSIDE RECORDS SUMMARY | 2023-03-01 11:52 | XMS_ITS | Continuity of Care Document ---
Author Name Unknown Organization [facility] ter Address [address] [place] [address]- Care Team Providers Care Paramedic Name Role Phone Paula Bauer Primary Care Physician [place] [facility] [place] 02/03/23 - 02/03/[address] [address]- Discharge Disposition: A-D/C Home Attending Physician: Alisha Jacobs MD Admitting Physician: Alisha Jacobs MD Referring Physician: Not on Staff, Referring MD Allergies, Adverse Reactions, Alerts No Known Allergies [...] Most recent to oldest [Reference Range]: 1 2 3 Height 162 cm (02/03/23 3:37 PM) 162 cm (02/03/23 11:03 AM) Oxygen Saturation [94-100 %] 100 % (02/03/23 3:37 PM) 100 % (02/03/23 1:04 PM) 100 % (02/03/23 11:03 AM) Pulse Rate [55-90 bpm] 61 bpm (02/03/23 3:37 PM) 74 bpm (02/03/23 1:04 PM) 68 bpm (02/03/23 11:03 AM) Blood Pressure [90-138/55-84 mm Hg] 116/68mm Hg (02/03/23 3:37 PM) 117/74mm Hg (02/03/23 1:04 PM) 126/81mm Hg (02/03/23 11:03 AM) Respiratory Rate [16-30 br/min] 28 br/min (02/03/23 3:37 PM) 18 br/min (02/03/23 1:04 PM) 18 br/min (02/03/23 11:03 AM) Temperature [96.8-100.4 DegF] 98.0 DegF (02/03/23 1:04 PM) 97.8 DegF (02/03/23 11:03 AM) Mode of Delivery (Oxygen) Room air (02/03/23 3:37 PM) Room air (02/03/23 1:04 PM) Room air (02/03/23 11:03 AM) Blood pressure sites Arm, right (02/03/23 3:37 PM) Arm, left (02/03/23 1:04 PM) Arm, left (02/03/23 11:03 AM) Temperature Route Oral (02/03/23 1:04 PM) Oral (02/03/23 11:03 AM) Dry Weight 64.8 kg (02/03/23 3:37 PM) 64.8 kg (02/03/23 11:03 AM) Dry Weight Obtained Via Standing scale (02/03/23 11:03 AM) Social History Social History Type Response Smoking Status Never (less than 100 in lifetime) entered on: 04/02/22 Sex EKG study * Event Display: ECG 12-Lead Authored Date: Please click on pdf link to open report * Event Display: ECG 12-Lead Authored Date: Ventricular Rate: 62 BPM Atrial Rate: 62 BPM P-R Interval: 176 ms QRS Duration: 80 ms Q-T Interval: 398 ms QTC Calculation(Bazett): 403 ms P Oberlin: 51 degrees R Oberlin: 79 degrees T Oberlin: 68 degrees Normal sinus rhythm Normal ECG When compared with ECG of 14-JUL-2022 14:33, No significant change was found Confirmed by FRANCESCA THOMAS ([id number]) on 02/03/2023 12:02:34 PM [place]: FRANCESCA THOMAS Note * Brandy SCHILLING, Pedro Parra: PERFORM Event Display: Patient Education Leaflets Authored Date: [id number] Fainting: Uncertain Cause ?? [id number] Fainting: Uncertain Cause Fainting (syncope) is a temporary loss of consciousness. It's often associated with a loss of postural tone. It???s also called passing out. It occurs when blood flow to the brain is less than normal. There are other causes of fainting, too. Near-fainting (near-syncope) is very similar to fainting,but you don???t fully pass out. In most cases, fainting occurs for reasons that aren't necessarily serious or life-threatening. Butit may still be dangerous if you fall or if it occurs while driving. Common triggers of less serious types of fainting include: ??? Sudden fear ??? Pain ??? Nausea ??? Emotional stress ??? Overexertion Suddenly standing up after sitting or lying for a long time can also cause fainting. More serious causes of fainting include: ??? Very slow or very fast heartbeat (arrhythmia) ??? Other types of heart disease, such as heart valve disease or coronary artery disease ??? Dehydration ??? Loss of blood ??? Stroke ??? Ruptured blood vessel in the brain Taking too much high blood pressure medicine can also cause low blood pressure and fainting. Your healthcare provider may be able to tell why you are fainting by reviewing your health history and hearing about your fainting episodes. If the cause of your fainting remains unknown or if your healthcare provider is concerned about a more serious cause he or she may determine that you need further testing. Testing may include: ??? Echocardiogram. This will take ultrasound pictures of your heart to evaluate the heart's structure and function ??? Stress test. This will check for abnormalities with you heart function or heartrhythm with exercise ??? Tilt table test. This evaluates for changes in blood pressure or heart rate when going from a laying position to standing ??? Heart monitoring. This will evaluate for heart rhythms that are too slow or too fast that may be the cause of your fainting ??? Lab tests. This can check for abnormalities in electrolytes, blood counts and other things Home care Follow these guidelines when caring for yourself at home: ??? Rest today. You may go back to your normal activities when you are feeling back to normal. It's best to stay with someone who can check on you for the next 24 hours to watch for another episode of fainting. ??? If you become lightheaded or dizzy, lie down right away and try to prop your feet above the level of your head. Or sit with your head between your knees. ??? Because the provider doesn???t know the exact cause of your faintingor near-fainting spell, it???s possible for you to have another spell without warning. Because of this, don???t drive a car or operate dangerous equipment until your healthcare provider says it's OK to do so. Don???t take a bath alone. Use a shower instead. Don???t swim alone??until your healthcareprovider says that you are no longer in danger of having another fainting spell. ?? Follow-up care Follow up with your healthcare provider, or as advised. Call 911 Call 911 if any of the following occur: ??? Another fainting spell that???s not explained by the common causes listed above ??? Pain in your chest, arm, neck, jaw, back, or belly (abdomen) ??? Shortness of breath ??? Severe headache or seizure ??? Blood in vomit or stools (black or red color) ??? Your heart beats very rapidly, very slowly, or irregularly (palpitations) ??? Weakness in an arm or leg or on 1 side of the face ??? Trouble speaking or seeing ??? Extreme drowsiness, confusion, or dizziness ?? Last Reviewed Date: 2021 ?? [id number] The [employer]. All rights reserved. This information is not intended as a substitute for professional medical care. Always follow your healthcare professional's instructions. ?? Patient Care team information Care Team Personnel Name: Paula Bauer Position: [facility] PCO Associate Professional Member Role: PCP Address: Address: [address] [place] [address]- Name: Jann Solano NP, Shagufta James Position: [facility] PCO Associate Professional Member Role: Primary Care Nurse Address: Address: [address] [place] [address] [facility] [address]- Name: Pedro Becerril Position: [facility] Associate Professional Member Role: ED Physician Provider Relations Manager Address: Address: [address] [place] [address]- Name: Alisha Jacobs MD Position: [facility] Resident Member Role: Admitting Physician Address: Address: [address] [place] [address]- Name: Nicky Schneider RN Position: [facility] ED RN W/OE and Tasks Member Role: Patient Care Provider Care Team Related Persons Name: BAL PELLETIER Address: home [address] [place] [address]
--- OUTSIDE RECORDS SUMMARY | 2023-03-01 11:52 | XMS_ITS | Continuity of Care Document ---
Author Name Unknown Organization [facility] Adult Address [address] [place] [address]- Care Team Providers Care Displayer Name Role Phone Not on Staff, PCP Primary Care Physician Unavail able [place] [facility] [place] 02[place]25/22 [facility] Adult [address] [place] [address]- Attending Physician: Ju Tirado NP Allergies, Adverse Reactions, Alerts No Known Allergies Immunizations Given and Recorded Vaccine Date Status Refusal Reason hepatitis B adult vaccine 10/24/21 Recorded tetanus/diphtheria/pertussis, acel(Tdap) 11/19/20 Recorded SARS-CoV-2 (COVID-19) mRNA-1273 vaccine 11/05/20 R ecorded SARS-CoV-2 (COVID-19) mRNA-1273 vaccine 10/08/20 R ecorded Medications ibuprofen 600 mg oral tablet 600 mg, 1, tablet, By Mouth, Every 8 hours, # 30 tablet, Refills 0, Tot. Refills 0, Maintenance, 04/23/16 13:19:41, Print Requisition Start Date: 04/23/16 Status: Ordered NuvaRing 0.015 mg-0.120 mg vaginal ring See Instructions, as directed, # 1 each, 3 Refills, Maintenance Start Date: 07/10/11 Status: Ordered prednisone 20 mg oral tablet 2 tablet = 40 mg, By Mouth, Daily, # 10 tablet, 0 Refills, Maintenance, 12/27/13 22:19:43 Start Date: 12/27/13 Stop Date: 01/01/14 Status: Ordered Vital Signs Most recent to oldest [Reference Range]: 1 Height 158.00 cm (02/18/22 10:05 AM) Care Team Personnel Name: Not on Staff, PCP
--- OUTSIDE RECORDS SUMMARY | 2023-03-01 11:52 | XMS_ITS | Continuity of Care Document ---
Author Name Unknown Organization [facility] Address [address] [place] [address]- Care Team Providers Care Ritual Circumciser Name Role Phone Paula Bauer Primary Care Physician [place] [facility] [place]16[place] - 08/15/22 [facility] [address] [place] [address]- [place] Allergies, Adverse Reactions, Alerts No Known Allergies [...] depressive disorder), recurrent episode, mild Confirmed Active Social History Social History Type Response Smoking Status Never (less than 100 in lifetime) entered on: 04/02/22 Sex Patient Care team information Care Team Personnel Name: Paula Bauer Position: [facility] PCO Associate Professional Member Role: PCP Address: Address: [address] [place] [address]. [address] [place] [address]- [place] Name: Shagufta Alvarado NP [facility] Professional Member Role: Primary Care Nurse Address: Address: [address] [place] [address] [place] [address]- [place] Care Team Related Persons Name: BAL PELLETIER Address: home [address] [place] [address]
--- OUTSIDE RECORDS SUMMARY | 2023-03-01 11:52 | XMS_ITS | Continuity of Care Document ---
Author Name Unknown Organization [facility] Address [address] [address]- Care Team Providers Care Feature Writer Name Role Phone Paula Bauer Primary Care Physician Encounter [facility] [place] Date(s): 08/22/22 - 08/29/22 [facility] [address] [address]- Attending Physician: Paula Bauer Admitting Physician: Paula Bauer Referring Physician: Paula Bauer Allergies, Adverse Reactions, [...] 100 in lifetime) entered on: 04/02/22 Sex US Heart * Event Display: Echocardiogram - Complete Authored Date: [id number] * Event Display: Echocardiogram - Complete Authored Date: [id number] Transthoracic Echocardiography Report (TTE) Patient Demographics Patient Name INES MEI Date of Study 08/22/2022 Corporate Gender Female Facility Race Unknown Ethnicity Date of 1995 Height: 62.2 inches Age 27 year(s) Weight: 154.32 pounds Accession Number [id number] BSA: 1.72 m2 Room Number BMI: 28.04 kg/m2 Referring Physician Arthur Strange MD Physician Front Office Manager Salomon Jeong Indications Syncope. Study Data Type of Study TTE procedure:Echo Complete-Doppler, Colorflow, M-Mode. Study Date08/22/2022 Start Time: 08:32 AM Study Location: [facility] Echo Study Status: Echo lab Patient Status: Routine Technical Quality: Fair due to body habitus. EKG: Within normal limits HR: 63 bpm 2D Measurements LV Diastolic Dimension: 3.9 cm LV Systolic Dimension: 2.8 cm LV Septum Diastolic: 1 cm LV PW Diastolic: 1 cm AO Root Dimension: 2.5 cm LA Dimension: 3.4 cm LA ESV (BP):36.1 ml LVOT Stroke Volume: 47.61 ml LA ESV Index: 21 ml/m2 Stroke Volume Index27.68 ml/m2 LVOT: 1.9 cm Cardiac Index:1.74 l/min/m2 Ascending Aorta:2.4 cm Doppler Measurements AV Peak Velocity: 110 cm/s MV Peak E-Wave: 97.3 cm/s AV Peak Gradient: 4.84 mmHg MV Peak A-Wave: 54 cm/s AV Mean Gradient: 2 mmHg MV E/A Ratio: 1.8 AV VTI:25 cm MV P1/2t: 62 msec LVOT Peak Velocity: 80.9 cm/s LVOT VTI16.8 cm MV Deceleration Time: 211 msec AV Area (Continuity):1.9 cm2 MV Area (PHT): 3.55 cm2 E' Septal Velocity: 12.9 cm/s E' Lateral Velocity: 17.2 cm/s E/Med E':7.758981 E/Lat E':5.855795 Cardiac Anatomy Left Ventricle/Interventricular Septum The left ventricular size is normal. Left ventricular wall thickness is normal. The LV systolic function is normal . The left ventricular ejection fraction is 55 %. Normal diastolic function. Left Atrium/Interatrial Septum The left atrium is normal in size. Aortic Valve The aortic valve is trileaflet and normal in structure and function. There is no aortic stenosis or insufficiency. Mitral Valve The mitral valve is normal in structure and function. There is no mitral stenosis. There is insignificant trace mitral regurgitation. Aorta The ascending aorta and aortic root are normal in size. Right Ventricle The right ventricle is normal in size and function. Right Atrium The right atrium is normal in size. Pulmonic Valve The pulmonic valve is normal in structure and function. There is trace pulmonic regurgitation. Tricuspid Valve The tricuspid valve is normal in structure and function. There is no stenosis or insufficiency. The PA pressure could not be determined. Pumonary Artery The pulmonary artery appears normal. Venous Structures The inferior vena cava appears normal. Pericardium/Extracardiac There is no pericardial effusion. Summary The left ventricular size is normal. Left ventricular wall thickness is normal. The LV systolic function is normal . The left ventricular ejection fraction is 55 %. Normal diastolic function. The PA pressure could not be determined. No significant valvular disease. Comparison No prior study available for comparison. Signature US.doppler Carotid arteries - bilateral * Event Display: VL Carotid Duplex Scan Bilat Authored Date: [id number] Status:Open Carotid Duplex Study Demographics Procedure Information Patient name: SIGIFREDO CHACON Procedure date: 08/22/2022 8:19 AM Corporate Proc. sub type: Cerebral: Carotid, Carotid Duplex Scan Bilateral. Gender: Female Accession No: [id number] Date of : 1995 Account No: [id number] Age: 27 year(s) Patient status: Routine Admit Status: Outpatient Procedure Staff Probe: L9-3 Attending Physician: Mahendra SCHILLING Technical quality: Adequate visualization Ordering physician: Arthur Strange MD Facility: [facility] Referring Physician: Arthur Strange MD MAHENDRA TIDWELL Study location: [facility] Vascular Lab Front Office Manager: Dee Lainez RDMS, RVT Interpreting physician: Zaire Gunn MD Procedure consent obtained: No Indications Syncope. Carotid Procedure Findings Right Left PSV EDV Angle Plaque PSV EDV Angle Plaque Location (cm/s) (cm/s) (Degree) Characteristics (cm/s) (cm/s) (Degree) Characteristics Prox CCA 163 32.2 60 164 36.7 60 Dist CCA 121 32.7 60 123 34.6 60 Bulb 96.8 29.5 60 107 35.2 60 Prox ICA 119 42.6 60 133 44 60 Mid ICA 117 44.6 60 105 41.9 60 Dist ICA 122 41.4 60 97.4 44 60 Prox ECA 123 20.7 60 112 21.5 60 Vertebral 64.6 21.3 60 71.6 21.8 60 Prox 172 60 225 60 Subclavian Right ICA/CCA ratio: 1.01 Right verterbral flow: Antegrade Left ICA/CCA ratio: 1.08 Left verterbralflow: Antegr Physician Conclusions Summary: Right side: No stenosis of the Internal Carotid Artery. Antegrade Vertebral artery flow. Multiphasic Subclavian artery flow. Left side: No stenosis of the Internal Carotid Artery. Antegrade Vertebral artery flow. Multiphasic Subclavian artery flow. There is no previous exam for comparison. * Event Display: VL Carotid Duplex Scan Bilat Authored Date: [id number] Patient Care team information Care Team Personnel Name: Paula Bauer Position: [facility] PCO Associate Professional Member Role: PCP Address: Address: [address] [place] [address]- Name: Jann Solano NP, Shagufta James Position: [facility] PC[facility] Associate Professional Member Role: Primary Care Nurse Address: Address: [address] [place] [address] [place] [address]- Care Team Related Persons Name: BAL PELLETIER Address: home [address] [place] [address]
--- OUTSIDE RECORDS SUMMARY | 2023-03-01 11:52 | XMS_ITS | Continuity of Care Document ---
Author Name Unknown Organization [facility] Medicine Address [address], [address] [place] [address]- Care Team Providers Care Machine Room Engineer Name Role Phone Paula Bauer Primary Care Physician [place] [facility] [place] 12[place]/22 [facility] Rep[facility] [address], [address] [place] [address]- Allergies, Adverse Reactions, Alerts No Known Allergies [...] Care Team Personnel Name: Paula Bauer Position: [facility] PCO Associate Professional Member Role: PCP Address: Address: [address] [place] [address]- Name: Jann Solano NP, Shagufta James Position: [facility] PCO Associate Professional Member Role: Primary Care Nurse Address: Address: [address] [place] [address] [place] [address]- Care Team Related Persons Name: BAL PELLETIER Address: home [address] [place] [address]
--- OUTSIDE RECORDS SUMMARY | 2023-03-01 11:52 | XMS_ITS | Continuity of Care Document ---
Author Name Unknown Organization [facility] Address [address], [address] Floor, [address] [place] [address]- Care Team Providers Care Online Publisher Name Role Phone Paula Bauer Primary Care Physician En[place] [facility] [place] Date(s): 01/06/23 - 02/05/23 [facility] [address], [address], [address] [place] [address] Attending Physician: José Luis Paez Admitting Physician: AdmtrJosé Luis Referring Physician: Admtr, Ar8 Allergies, Adverse Reactions, Alerts No Known Allergies [...] a schedule II opioid drug., 158, cm, 01/19/2... Start Date: 07/17/22 Status: Ordered Problem List [...] Care Team Personnel Name: Paula Bauer Position: [facility] Associate Professional Member Role: PCP Address: Address: [address] [place] [address]- Name: Jann Solano NP, Shagufta James [facility] Associate Professional Member Role: Primary Care Nurse Address: Address: [address] [place] [address] [place] [address]- Care Team Related Persons Name: BAL PELLETIER Address: home [address] [place] [address]
--- OUTSIDE RECORDS SUMMARY | 2023-03-01 11:52 | XMS_ITS | Continuity of Care Document ---
Author Name Unknown Organization [facility] Adult Address [address] [place] [address]- Care Team Providers Care Geoscience Specialist Name Role Phone Paula Bauer Primary Care Physician En[place] [facility] [place] Date([place]): 08/25/22 - 09/24/[address] [address]- Allergies, Adverse Reactions, Alerts No Known Allergies [...] Care Team Personnel Name: Paula Bauer Position: [facility] PCO Associate Professional Member Role: PCP Address: Address: [address] [place] [address]. [address] [place] [address]- Name: Jann Solano NP, Shagufta James Position: [facility] PCO Associate Professional Member Role: Primary Care Nurse Address: Address: [address] [place] [address] [place] [address]- Care Team Related Persons Name: BAL PELLETIER Address: home [address] [place] [address]
--- OUTSIDE RECORDS SUMMARY | 2023-03-01 11:52 | XMS_ITS | Continuity of Care Document ---
Author Name Unknown Organization [facility] Address [address] [place] [address]- Care Team Providers Care Fiber Optic Assembler Name Role Phone Perico SCHILLING, Paula Waller Primary Care Physician [place] [facility] [place] 10/11/22 [facility] [address] [place] [address]- Attending Physician: Rupesh Guzman MD Referring Physician: Paula Bauer Allergies, Adverse [...] moderate, dependence Confirmed Active Eczema Confirmed Active SIOMN (generalized anxiety disorder) Confirmed Active Migraine Confirmed Active MDD (major depressive disorder), recurrent episode, mild Confirmed Active Social History Social History Type Response Smoking Status Never (less than 100 in lifetime) entered on: 04/02/22 Sex Patient Care team information Care Team Personnel Name: Paula Bauer Position: [facility] PCO Associate Professional Member Role: PCP Address: Address: [address] [place] [address]. [address] [place] [address]- Name: Jann Solano NP, Shagufta James Position: [facility] PCO Associate Professional Member Role: Primary Care Nurse Address: Address: [address] [place] [address] [facility] [place] [address]- Care Team Related Persons Name: BAL PELLETIER Address: home [address] [place] [address]
--- OUTSIDE RECORDS SUMMARY | 2023-03-01 11:52 | XMS_ITS | Continuity of Care Document ---
Author Name Unknown Organization [facility] Medicine Address [address], [address] [place] [address]- Care Team Providers Care Carbon Setter Name Role Phone Paula Bauer Primary Care Physician [place] [facility] [place] 07/29/22 - 08/28/22 [facility] Rep[facility] [address] 4th [address] [place], [place] [address] Attending Physician: José Luis Paez Admitting Physician: José Luis Paez Referring Physician: AdmtrJosé Luis Allergies, Adverse Reactions, Alerts No Known Allergies [...] Care Team Personnel Name: Paula Bauer Position: [facility] PCO Associate Professional Member Role: PCP Address: Address: [address] [place] [address]- Name: Jann Solano NP, Shagufta James Position: [facility] PCO Associate Professional Member Role: Primary Care Nurse Address: Address: [address] [place] [address] [place] [address]- Care Team Related Persons Name: BAL PELLETIER Address: home [address] [place] [address]
--- OUTSIDE RECORDS SUMMARY | 2023-03-01 11:52 | XMS_ITS | Continuity of Care Document ---
Author Name Unknown Organization [facility] Address [address] [place] [address]- Care Team Providers Care Mold Mover Name Role Phone Paula Bauer Primary Care Physician Encounter [facility] Date(s): 04/03/22 - 05/03/[address] [address] Allergies, Adverse Reactions, Alerts No Known Allergies Immunizations Given and Recorded Vaccine Date Status Refusal Reason hepatitis B adult vaccine 10/24/21 Recorded tetanus/diphtheria/pertussis, acel(Tdap) 11/19/20 Recorded SARS-CoV-2 (COVID-19) mRNA-1273 vaccine 11/05/20 R ecorded SARS-CoV-2 (COVID-19) mRNA-1273 vaccine 10/08/20 R ecorded Medications PROzac 20 mg oral capsule 20 mg, 1, capsule, By Mouth, Daily, # 60 capsule, Refills 0, Tot. Refills 0, Maintenance, 04/02/22 16:23:00 EDT, Route to Pharmacy Electronically, [facility]/pharmacy #[id number], Partial fill upon patient request if the prescription is for a schedule II opioid . Start Date: 04/02/22 Status: Ordered Problem List Condition Confirmation Course Effective Dates Status Health St atus Informant Cannabis use disorder, moderate, dependence Confirmed Active SIMON (generalized anxiety disorder) Confirmed Active MDD (major depressive disorder), recurrent episode, mild Confirmed Active Social History Social History Type Response Smoking Status Never (less than 100 in lifetime) entered on: 04/02/22 Sex Patient Care team information Personnel Name: Paula Bauer Address: Address: [address] [place] [address]. 3rd Floor [place], [place] [address]
--- OUTSIDE RECORDS SUMMARY | 2023-03-01 11:52 | XMS_ITS | Continuity of Care Document ---
Author Name Unknown Organization [facility] Address [address] [facility], 4t [address] [place] [address]- Care Team Providers Care Rug Cutter Helper Name Role Phone Paula Bauer Primary Care Physician Encounter [facility] Date(s): 12/04/22 - 12/11/22 [facility] [address] [facility], 4th [address] [place] [address]- Attending Physician: Breana Cuevas MD Referring Physician: Audrey Mckeon CNM Allergies, Adverse Reactions, Alerts No Known Allergies [...] oldest [Reference Range]: 1 Height 158 cm (12/04/22 2:56 PM) Weight 70.8 kg (12/04/22 2:56 PM) Pulse Rate [55-90 bpm] 75 bpm (12/04/22 2:56 PM) Body Mass Index [18.5-24.99 kg/m2] 28.36 kg/m2 *H* (12/04/22 2:56 PM) Blood Pressure [90-138/55-84 mm Hg] 108/ 64mm Hg (12/04/22 2:56 PM) Blood pressure sites Arm, right (12/04/22 2:56 PM) Weight Obtained Via Standing scale (12/04/22 2:56 PM) Social History Social History Type Response Smoking Status Never (less than 100 in lifetime) entered on: 04/02/22 Sex Note * Cristiano Crawford MA: PERFORM, SIGN, VERIFY Event Display: Patient Education/Instruction Authored Date: [id number] [facility] *[facility] Clinical Summary Name INES MEI Age 27 Years 1995 PCP Perico SCHILLING, Paula Waller PCP Visit Date 12/04/2022 14:39:00 Additional Instructions: Scheduled Appointments?? Future Appointments ?*[facility]??Neurology ?[address]rd[address] ?[place],??[place],??[address] ?Phone:??--?Fax:??-- ?Appt. Date:??01/06/2023?3:30 PM ?Scheduled Provider:??Angel GARCIA, Waldemar Lewis ?*[facility] ?[address]??[place],??[place],??[address] ?Phone:??--?Fax:??-- ?Appt. Date:??02/05/2023?1:40 PM ?Scheduled Provider:??Mason GARCIA, Breana James Follow-Up Instructions ?? Diagnosis Nicotine dependence, unspecified, uncomplicated; Encounter for other general counseling and advice on procreation; Female infertility, unspecified Medications: Please continue your [...] NKA Medications Given This Visit Future Orders ?No future orders Vital Signs Height 158 cm Weight 70.8 kg BMI 28.36 kg/m2 Blood Pressure 108 mm Hg/64 mm Hg Temperature Pulse Rate 75 bpm Respiratory Rate 02 Sat Mode of Delivery / You can now view a summary of your hospital visit from the comfort of your home through a free online portal called PPTV. PPTV is a website that allows you to securely view your medical information including discharge summary, medications and follow-up visits. ??You can alsosend a secure electronic message to your doctor???s office to request appointments, renew medications or just ask a question. You can enroll at [email or web address] or register during your next office visit. [...] care provider, you may find a [facility] provider by calling [facility] [employer] at [phone]. For information about the plan of care including goals and instructions for your diagnosis, please see the patient education orders section of this document. Patient Education Materials?? The content of this educational material or handout may have been modified, supplemented, or adapted from its original content and format to support your individualized medical care. Additional Provider Instructions: Walter requested for Practice prep. Pt to follow provider instructions Patient Care team information Care Team Personnel Name: Paula Bauer Position: [facility] Associate Professional Member Role: PCP Address: Address: [address] [facility] [place] [address]- [place] Name: Shagufta Alvarado NP Position: [facility] Associate Professional Member Role: Primary Care Nurse Address: Address: [address] [facility] 3rd [facility] [place] [address]- [place] Care Team Related Persons Name: BAL PELLETIER Address: home [address] [place] [address]
--- OUTSIDE RECORDS SUMMARY | 2023-03-01 11:52 | XMS_ITS | Continuity of Care Document ---
Author Name Unknown Organization [facility] Address [address] [place] [address]- Care Team Providers Care Poultry Veterinarian Name Role Phone Paula Bauer Primary Care Physician Encounter [facility] Date(s): 08/18/22 - 09/17/22 [facility] [address] [place] [address] Attending Physician: José Luis Paez Admitting Physician: [...] a schedule II opioid drug., 158, cm, 2... Start Date: 07/17/22 Status: Ordered Problem List [...] Care Team Personnel Name: Paula Bauer Position: [facility] Associate Professional Member Role: PCP Address: Address: [address] [place] [address]- Name: Jann Solano NP, Shagufta James Position: [facility] Associate Professional Member Role: Primary Care Nurse Address: Address: [address] [place] [address] [place] [address]- Care Team Related Persons Name: BAL PELLETIER Address: home [address] [place] [address]
--- OUTSIDE RECORDS SUMMARY | 2023-03-01 11:52 | XMS_ITS | Continuity of Care Document ---
Author Name Unknown Organization [facility] Address [address] [address]- Care Team Providers Care Academic Department Chair Name Role Phone Paula Bauer Primary Care Physician Encounter [facility] Date(s): 08/22/22 - 09/21/22 [facility] [address] [address]- Attending Physician: AdmJosé Luis mccord Admitting Physician: AdmtrJosé Luis Referring Physician: Admtr, [...] Care Team Personnel Name: Paula Bauer [facility] Associate Professional Member Role: PCP Address: Address: [address] [place] [address]- Name: Jann Solano NP, Shagufta James [facility] Associate Professional Member Role: Primary Care Nurse Address: Address: [address] [place] [address] [place] [address]- Care Team Related Persons Name: BAL PELLETIER Address: home [address] [place] [address]
--- OUTSIDE RECORDS SUMMARY | 2023-03-01 11:52 | XMS_ITS | Continuity of Care Document ---
Author Name Unknown [facility] [employer] [facility] Address [address] [place] [address], [address] [place] [address]- Care Team Providers Care Spinning Supervisor Name Role Phone Paula Bauer Primary Care Physician En[id number] Date(s): 06/02/22 - 07/02/22 [facility] [employer] [address] [facility] [place], [place] [address] Attending Physician: AdmJosé Luis mccord Admitting Physician: [...] 9:57:00 EST, Height Start Date: 05/29/22 Status: Ordered Sumatriptan Once, 0 Refills, Maintenance, 05/12/22 9:34:00 EST, [...] Care Team Personnel Name: Paula Bauer Position: [facility] Associate Professional Member Role: PCP Address: Address: [address] [place] [address]. [address] [place] [address]- [place] Name: Jann Solano NP, Shagufta James Position: [facility] Associate Professional Member Role: Primary Care Nurse Address: Address: [address] [place] [address] [place] [address]- Care Team Related Persons Name: BAL PELLETIER Address: home [address] [place] [address]
--- OUTSIDE RECORDS SUMMARY | 2023-03-01 11:52 | XMS_ITS | Continuity of Care Document ---
Author Name Unknown Organization [facility] Address [address] [place] [address]- Care Team Providers Care Obedience Trainer Name Role Phone Paula Bauer Primary Care Physician Encounter [facility] Date(s): 07/15/22 - 08/14/22 [facility] [address] [place] [address]- Allergies, Adverse Reactions, Alerts No Known Allergies [...] Care Team Personnel Name: Paula Bauer Position: [facility] Associate Professional Member Role: PCP Address: Address: [address] [place] [address]- Name: Jann Solano NP, Shagufta James Position: [facility] Associate Professional Member Role: Primary Care Nurse Address: Address: [address] [place] [address] [place] [address]- Care Team Related Persons Name: BAL PELLETIER Address: home [address] [place] [address]
--- OUTSIDE RECORDS SUMMARY | 2023-03-01 11:52 | XMS_ITS | Continuity of Care Document ---
Author Name Unknown Organization [facility] Address [address] [place] [address]- Care Team Providers Care R Developer Name Role Phone Paula Bauer Primary Care Physician En[facility] Date(s): 05/30/22 - 06/29/22 [facility] [address] [place] [address]- Allergies, Adverse Reactions, Alerts No Known Allergies [...] Care Team Personnel Name: Paula Bauer Position: [facility] PC[facility] Associate Professional Member Role: PCP Address: Address: [address] [place] [address]- [place] Name: Jann Solano NP, Shagufta James Position: [facility] Associate Professional Member Role: Primary Care Nurse Address: Address: [address] [place] [address] [place] [address]- Care Team Related Persons Name: BAL PELLETIER Address: home [address] [place] [address]
--- OUTSIDE RECORDS SUMMARY | 2023-03-01 11:52 | XMS_ITS | Continuity of Care Document ---
Author Name Unknown Organization [facility] Address [address] [place] [address]- Care Team Providers Care Tail Puller Name Role Phone Paula Bauer Primary Care Physician Encounter [facility] Date(s): 05/12/22 - 05/19/22 [facility] [address] [place] [address]- Encounter Diagnosis Headache(Discharge Diagnosis) - 05/12/22 H/O migraine(Discharge Diagnosis) - 05/12/22 Migraine(Discharge Diagnosis) - 05/12/22 Attending Physician: Not on Staff, Attending MD Allergies, Adverse Reactions, Alerts No Known [...] 16:23:00 EDT, Route to Pharmacy Electronically, [facility]/pharmacy #[id number], Partial fill upon patient request if the prescription is for a schedule II opioid . Start Date: 04/02/22 Status: Ordered Sumatriptan Once, 0 Refills, Maintenance, [...] depressive disorder), recurrent episode, mild Confirmed Active Diagnosis Diagnosis Type Effective Dates Health Status Cl inical Service Informant Headache Discharge Diagnosis 05/12/22 H/O migraine Discharge Diagnosis 05/12/22 Migraine Discharge Diagnosis 05/12/22 Vital Signs Most recent to oldest [Reference Range]: 1 Height 158.00 cm (05/12/22 9:31 AM) Weight 71.4 kg (05/12/22 9:31 AM) Oxygen Saturation [94-100 %] 97 % (05/12/22 9:31 AM) Pulse Rate [55-90 bpm] 87 bpm (05/12/22 9:31 AM) Body Mass Index [18.5-24.99 kg/m2] 28.6 kg/m2 *H* (05/12/22 9:31 AM) Blood Pressure [90-138/55-84 mm Hg] 107/ 73mm Hg (05/12/22 9:31 AM) Mode of Delivery (Oxygen) Room air (05/12/22 9:31 AM) Blood pressure sites Arm, right (05/12/22 9:31 AM) Weight Obtained Via Standing scale (05/12/22 9:31 AM) Social History Social History Type Response Smoking Status Never (less than 100 in lifetime) entered on: 04/02/22 Sex Note * Jess Curtis: PERFORM, SIGN, VERIFY Event Display: Patient Education/Instruction Authored Date: [id number] [facility] *[facility] Clinical Summary Name INES MEI Age 27 Years 1995 PCP Perico SCHILLING, Paula Waller PCP Visit Date 05/12/2022 09:29:00 Additional Instructions: Scheduled Appointments?? Future Appointments ?*[facility] ?[address],??[place],??[address] ?Phone:??--?Fax:??-- ?Appt. Date:??05/15/2022?11:40 AM ?Scheduled Provider:??Paula Bauer ?*[facility] ?[address]??[place],??[place],??[address] ?Phone:??--?Fax:??-- ?Appt. Date:??06/02/2022?2:00 PM ?Scheduled Provider:??Daja Anderson ?*[facility] ?Phone:??--?Fax:??-- ?Appt. Date:??06/10/2022?9:00 AM ?Scheduled Provider:??Aster Meadows ?*[facility] ?[address]??[place],??[place],??[address] ?Phone:??--?Fax:??-- ?Appt. Date:??07/29/2022?8:40 AM ?Scheduled Provider:??Audrey Mckeon CNM Follow-Up Instructions ?? Diagnosis Headache, unspecified; Personal history of other diseases of the nervous system and sense organs; Migraine, unspecified, not intractable, without status migrainosus Medications: Please continue your medications until treatment is completed or stopped by your provider. Discuss any questions related to medications with your provider. Medications to Continue with No Changes These medications were not printed or sent to your pharmacy Fluoxetine (PROzac 20 mg oral capsule) 1 capsule Oral Daily. Refills: 0. Next Dose: Sumatriptan once. Next Dose: Allergy Info:?? NKA Medications Given This Visit Future Orders ?No future orders Vital Signs Height 158.00 cm Weight 71.4 kg BMI 28.6 kg/m2 Blood Pressure 107 mm Hg/73 mm Hg Temperature Pulse Rate 87 bpm Respiratory Rate 02 Sat Mode of Delivery 97 %/Room air You can now view a summary of your hospital visit from the comfort of your home through a free online portal called agreement24 [email or web address]. agreement24 [email or web address] is a website that allows you to securely view your medical information including discharge summary, medications and follow-up visits. ??You can alsosend a secure electronic message to your doctor???s office to request appointments, renew medications or just ask a question. You can enroll at [email or web address] or register during your next office visit. [...] primary care provider, you may find a [facility] provider by calling [facility] Link at [phone]. For information about the plan of care [...] Associate Professional Member Role: PCP Address: Address: [address] [place] [address]- Name: Jann Solano NP, Shagufta James Position: [facility] Associate Professional Member Role: Primary Care Nurse Address: Address: [address] [place] [address]- Care Team Related Persons Name: BAL PELLETIER Address: home [address] [place] [address]
--- OUTSIDE RECORDS SUMMARY | 2023-03-01 11:52 | XMS_ITS | Continuity of Care Document ---
Author Name Unknown Organization [facility] Address [address] [place] [address]- Care Team Providers Care Senior Oracle Pl Sql Developer Name Role Phone Paula Bauer Primary Care Physician Encounter [facility] Date(s): 07/10/22 - 07/17/[address] [address]- Encounter Diagnosis SIMON (generalized anxiety disorder)(Discharge Diagnosis) - 07/10/22 MDD (major depressive disorder), recurrent episode, mild(Discharge Diagnosis) - 07/10/22 COVID-19(Discharge Diagnosis) - 07/10/22 Eczema(Discharge Diagnosis) - 07/10/22 Attending Physician: Paula Bauer Allergies, Adverse Reactions, [...] Refills, Maintenance, 07/10/22 15:25:00 EST, Capsule, [id number], Partial fill upon patient request if the [...] cm, ... Start Date: 07/17/22 Status: Ordered triamcinolone 0.1% topical cream See Instructions, Apply a thin layer to the affected areas twice daily for the next 14 days., # 30 Gm, 0 Refills, Acute 07/24/22 15:27:00 EST, 07/10/22 15:27:00 EST, Cream, [id number], Partial fill upon patient request if the prescription is f... Start Date: 07/10/22 Stop Date: 07/24/22 Status: Ordered Problem List Condition Confirmation Course Effective Dates Status Health St atus Informant Cannabis use disorder, moderate, dependence Confirmed Active Eczema Confirmed Active SIMON (generalized anxiety disorder) Confirmed Active Migraine Confirmed Active MDD (major depressive disorder), recurrent episode, mild Confirmed Active Diagnosis Diagnosis Type Effective Dates Health Status Clinical Service Informant SIMON (generalized anxiety disorder) Discharge Diagnosis 07/10/22 MDD (major depressive disorder), recurrent episode, mild Discharge Diagnosis 07/10/22 COVID-19 Discharge Diagnosis 07/10/22 Eczema Discharge Diagnosis 07/10/22 Vital Signs Most recent to oldest [Reference Range]: 1 Height 158 cm (07/10/22 3:03 PM) Weight 71 kg (07/10/22 3:03 PM) Body Mass Index [18.5-24.99 kg/m2] 28.44 kg/m2 *H* (07/10/22 3:03 PM) Weight Obtained Via Patient/family state d (07/10/22 3:03 PM) Social History Social History Type Response Smoking Status Never (less than 100 in lifetime) entered on: 04/02/22 Sex Patient Care team information Care Team Personnel Name: Paula Bauer [facility] Associate Professional Member Role: PCP Address: Address: [address] [place] [address]. 3rd [place] [address]- Name: Jann Solano NP, Shagufta James [facility] Associate Professional Member Role: Primary Care Nurse Address: Address: [address] [place] [address] [address] [facility] [place] [address]- Care Team Related Persons Name: BAL PELLETIER Address: home [address] [place] [address]
--- OUTSIDE RECORDS SUMMARY | 2023-03-01 11:52 | XMS_ITS | Continuity of Care Document ---
Author Name Unknown Organization [facility] Address [address] [place] [address]- Care Team Providers Care School Teacher Name Role Phone Paula Bauer Primary Care Physician Encounter [facility] Date(s): 09/11/22 - 10/11/22 [facility] [address] [place] [address]- Attending Physician: José Luis Paez Admitting Physician: Admtr, Ar8 Referring Physician: Admtr, Ar8 Allergies, Adverse Reactions, [...] Care Team Personnel Name: Paula Bauer Position: [facility] Associate Professional Member Role: PCP Address: Address: [address] [place] [address]- Name: Jann Solano NP, Shagufta James Position: [facility] Associate Professional Member Role: Primary Care Nurse Address: Address: [address] [place] [address] [place] [address]- Care Team Related Persons Name: BAL PELLETIER Address: home [address] [place] [address]
--- OUTSIDE RECORDS SUMMARY | 2023-03-01 11:52 | XMS_ITS | Continuity of Care Document ---
Author Name Unknown Organization [facility] Address [address] [place] [address]- Care Team Providers Care Massage Therapy Instructor Name Role Phone Paula Bauer Primary Care Physician Encounter [facility] Date(s): 07/15/22 - 07/22/22 [facility] [address] [place] [address]- Encounter Diagnosis Syncope(Discharge Diagnosis) - 07/15/22 Cannabis use disorder, moderate, dependence(Discharge Diagnosis) - 07/15/22 Attending Physician: Alie GARCIA [facility] Allergies, Adverse Reactions, Alerts No Known Allergies [...] Effective Dates Health Status Clinical Service Informant Syncope Discharge Diagnosis 07/15/22 Cannabis use disorder, moderate, dependence Discharge Diagnosis 07/15/22 Vital Signs Most recent to oldest [Reference Range]: 1 2 Height 158 cm (07/15/22 2:02 PM) 158 cm (07/15/22 1:10 PM) Weight 68 kg (07/15/22 2:02 PM) 68 kg (07/15/22 1:10 PM) Oxygen Saturation [94-100 %] 99 % (07/15/22 1:10 PM) Pulse Rate [55-90 bpm] 78 bpm (07/15/22 1:10 PM) Body Mass Index [18.5-24.99 kg/m2] 27.24 kg/m2 *H* (07/15/22 1:10 PM) Blood Pressure [90-138/55-84 mm Hg] 104/ 65mm Hg (07/15/22 1:10 PM) Temperature [96.8-100.4 DegF] 98.4 DegF (07/15/22 1:10 PM) Mode of Delivery (Oxygen) Room air (07/15/22 1:10 PM) Blood pressure sites Arm, left (07/15/22 1:10 PM) Temperature Route Oral (07/15/22 1:10 PM) Weight Obtained Via Standing scale (07/15/22 1:10 PM) Social History Social History Type Response Smoking Status Never (less than 100 in lifetime) entered on: 04/02/22 Sex Note * Crisostomo Zuleima: PERFORM, SIGN, VERIFY Event Display: Patient Education/Instruction Authored Date: [id number] [facility] Clinical Summary Name INES MEI Age 27 Years 1995 PCP Paula Bauer PCP Visit Date 07/15/2022 13:04:00 Additional Instructions: Scheduled Appointments?? Future Appointments ?*[facility] ?[address]??[place],??[place],??[address] ?Phone:??--?Fax:??-- ?Appt. Date:??07/29/2022?8:40 AM ?Scheduled Provider:??Beckman-Audrey Meza CNM ?*[facility] ?[address],??[place],??[address] ?Phone:??--?Fax:??-- ?Appt. Date:??08/18/2022?11:40 AM ?Scheduled Provider:??Paula Bauer Follow-Up Instructions ?? Diagnosis Syncope and collapse Medications: Please continue your medications until treatment is completed or stopped by your provider. Discuss any questions related to medications with your provider. Medications to Continue Taking That Have Changed These medications were not printed or sent to your pharmacy - Fluoxetine (PROzac 40 mg oral capsule) 1 capsule Oral Daily. Refills: 2. Next Dose: Medications to Continue with No Changes These medications were not printed or sent to your pharmacy Sumatriptan once. Next Dose: Triamcinolone Topical (triamcinolone 0.1% topical cream) Apply a thin layer to the affected areas twice daily for the next 14 days.. Refills: 0. Next Dose: Allergy Info:?? NKA Medications Given This Visit Future Orders ?Echo Complete? Order Date:07/15/22?- Complete by?07/15/22 ?Holter Monitor 48 Hours? Order Date:07/15/22?- Complete by?07/15/22 ?VL Carotid Duplex Bilat Scan? Order Date:07/15/22?- Complete by?07/15/22 Vital Signs Height 158 cm Weight 68 kg BMI 27.24 kg/m2 Blood Pressure 104 mm Hg/65 mm Hg Temperature 98.4 DegF Pulse Rate 78 bpm Respiratory Rate 02 Sat Mode of Delivery 99 %/Room air You can now view a summary of your hospital visit from the comfort of your home through a free online portal called [employer]. [employer] is a website that allows you to securely view your medical information including discharge summary, medications and follow-up visits. ??You can alsosend a secure electronic message to your doctor???s office to request appointments, renew medications or just ask a question. You can enroll at [email or web address] or register during your next office [...] primary care provider, you may find a [facility] provider by calling [facility] [employer] Link at [phone]. For information about the plan of care [...] Care Team Personnel Name: Paula Bauer [facility] Associate Professional Member Role: PCP Address: Address: [address] [place] [address]- [place] Name: Jann Solano NP, Shagufta James Position: [facility] Associate Professional Member Role: Primary Care Nurse Address: Address: [address] [place] [address] [place] [address]- [place] Care Team Related Persons Name: BAL PELLETIER Address: home [address] [place] [address]
--- OUTSIDE RECORDS SUMMARY | 2023-03-01 11:52 | XMS_ITS | Continuity of Care Document ---
Author Name Unknown Organization [facility] Address [address] [facility], 3r d Floor, [address] [place] [address]- Care Team Providers Care Aligning Inspector Name Role Phone Paula Bauer Primary Care Physician [place] [facility] [place]s): 10/08/22 - 02/05/23 [facility] [address], 3rd Floor, [address] [place] [id number] [place] Attending Physician: Zeyad Henry MD Admitting Physician: Zeyad Henry MD Referring Physician: Paula Bauer Allergies, Adverse [...] Care Team Personnel Name: Paula Bauer [facility] Associate Professional Member Role: PCP Address: Address: [address] [place] [phone]- Name: Jann Solano NP, Shagufta James [facility] Associate Professional Member Role: Primary Care Nurse Address: Address: [address] [place] [address] [place] [address]- Care Team Related Persons Name: BAL PELLETIER Address: home [address] [place] [address]
--- OUTSIDE RECORDS SUMMARY | 2023-03-01 11:53 | XMS_ITS | Continuity of Care Document ---
Author Name Unknown Organization [facility] Address [address] [facility], 3r d Floor, [address] [place] [address]- Care Team Providers Care Shipper Name Role Phone Paula Bauer Primary Care Physician [place] [facility] [place] Date[place] 07/17/22 - 08/16/22 [facility] [address], 3rd Floor, [address] [place] [id number] Attending Physician: José Luis Paez Admitting Physician: [...] Care Team Personnel Name: Paula Bauer Position: [facility] PCO Associate Professional Member Role: PCP Address: Address: [address] [place] [address]- [place] Name: Jann Solano NP, Shagufta James Position: [facility]O Associate Professional Member Role: Primary Care Nurse Address: Address: [address] [place] [address] [place] [address]- Care Team Related Persons Name: BAL PELLETIER Address: home [address] [place] [address]
--- OUTSIDE RECORDS SUMMARY | 2023-03-01 11:53 | XMS_ITS | Continuity of Care Document ---
Author Name Unknown Organization [facility] Address [address] [place] [address]- Care Team Providers Care Judge Clerk Name Role Phone Paula Bauer Primary Care Physician Encounter [facility] [place] Date(s): 08/07/22 - 09/06/22 [facility] [address] [place] [address]- Allergies, Adverse Reactions, Alerts No Known Allergies [...] Professional Member Role: PCP Address: Address: [address] [place] [address]- Name: Jann Solano NP, Shagufta James Position: [facility] PCO Associate Professional Member Role: Primary Care Nurse Address: Address: [address] [place] [address] [place] [address]- Care Team Related Persons Name: BAL PELLETIER Address: home [address] [place] [address]
--- OUTSIDE RECORDS SUMMARY | 2023-03-01 11:53 | XMS_ITS | Continuity of Care Document ---
Author Name Unknown Organization [facility] Address [address] [place] [address]- Care Team Providers Care Lubricator Granulator Name Role Phone Paula Bauer Primary Care Physician Encounter [facility] [id number] Date(s): 07/14/22 - 07/14/[address] [address]- Discharge Disposition: A-D/C Walkout Attending Physician: Not on Staff, Attending MD Admitting Physician: Not on Staff, Admitting MD Referring Physician: Not on Staff, Referring MD Allergies, Adverse Reactions, Alerts No Known Allergies Immunizations Given and Recorded Vaccine Date Status Refusal Reason hepatitis B adult vaccine 10/24/21 Recorded tetanus/diphtheria/pertussis, acel(Tdap) 11/19/20 Recorded SARS-CoV-2 (COVID-19) mRNA-1273 vaccine 11/05/20 R ecorded SARS-CoV-2 (COVID-19) mRNA-1273 vaccine 10/08/20 R ecorded Medications PROzac 20 mg oral capsule 20 mg, 1, capsule, By Mouth, Daily, # 30 capsule, Refills 2, Tot. Refills 2, Maintenance, 07/10/22 15:25:00 EST, Route to Pharmacy Electronically, [id number], Partial fill upon patient request if the prescription is for a schedule II opioid drRoland. Start Date: 07/10/22 Status: Ordered PROzac 40 mg oral capsule 1 capsule = 40 mg, By Mouth, Daily, # 30 capsule, 2 Refills, Maintenance, 07/10/22 15:25:00 EST, Capsule, [id number], Partial fill upon patient request if the prescription is for a schedule II opioid drug., 158, cm, 07/10/22 15:03:00 EST, Height Start Date: 07/10/22 Status: Ordered Sumatriptan Once, 0 Refills, Maintenance, 05/12/22 9:34:00 EST, Partial fill upon patient request if the prescription is for a schedule II opioid drug. Start Date: 05/12/22 Status: Ordered triamcinolone 0.1% topical cream See Instructions, Apply a thin layer to the affected areas twice daily for the next 14 days., # 30 Gm, 0 Refills, Acute 07/24/22 15:27:00 EST, 07/10/22 15:27:00 EST, Cream, [id number], Partial fill upon patient request if [...] to oldest [Reference Range]: 1 2 3 Oxygen Saturation [94-100 %] 100 % (07/14/22 6:31 PM) 100 % (07/14/22 4:30 PM) 100 % (07/14/22 2:14 PM) Pulse Rate [55-90 bpm] 58 bpm (07/14/22 6:31 PM) 81 bpm (07/14/22 4:30 PM) 75 bpm (07/14/22 2:14 PM) Blood Pressure [90-138/55-84 mm Hg] 118/62mm Hg (07/14/22 6:31 PM) 117/68mm Hg (07/14/22 4:30 PM) 113/62mm Hg (07/14/22 2:14 PM) Respiratory Rate [16-30 br/min] 16 br/min (07/14/22 6:31 PM) 18 br/min (07/14/22 4:30 PM) 16 br/min (07/14/22 2:14 PM) Temperature [96.8-100.4 DegF] 97.7 DegF (07/14/22 6:31 PM) 97.9 DegF (07/14/22 4:30 PM) 97.7 DegF (07/14/22 2:14 PM) Mode of Delivery (Oxygen) Room air (1/16/23 6:31 PM) Room air (07/14/22 4:30 PM) Room air (07/14/22 2:14 PM) Blood pressure sites Arm, left (07/14/22 6:31 PM) Arm, left (07/14/22 4:30 PM) Arm, left (07/14/22 2:14 PM) Temperature Route Oral (07/14/22 6:31 PM) Oral (07/14/22 4:30 PM) Oral (07/14/22 2:14 PM) Social History Social History Type Response Smoking Status Never (less than 100 in lifetime) entered on: 04/02/22 Sex Patient Care team information Care Team Personnel Name: Paula Bauer Position: [facility] PCO Associate Professional Member Role: PCP Address: Address: [address] [place] [phone]- Name: Jann Solano NP, Shagufta James Position: [facility] Associate Professional Member Role: Primary Care Nurse Address: Address: [address] [place] [address] [place] [address]- Care Team Related Persons Name: BAL PELLETIER Address: home [address] [place] [address]
== END 2023-03-01 11:51 | disposition home or self-care (01) ==
LOC: HO.ED 11:50
PROVIDERS: Emergency Provider Emergency Medicine
DX: L03.114 Cellulitis of left upper limb (principal); Z79.899 Other long term (current) drug therapy
CPT/HCPCS: 99282

== ENCOUNTER 2023-04-19 10:48 | Emergency (ER) | payer OTHER, SELFPAY ==
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
[2023-04-19 11:07] VITALS: BP 118/74; PULSE 81; RESP 16; TEMP 36.4; O2SAT 99; BMI 27.7
--- OUTSIDE RECORDS SUMMARY | 2023-04-19 12:14 | XMS_ITS | Continuity of Care Document ---
Author Name Unknown Organization [facility] Address [address] [facility], 4t h [address] [place] [address]- Care Team Providers Care Bus Trolley And Taxi Instructor Name Role Phone Paula Bauer Primary Care Physician Encounter [facility] [place] Date(s): 11/10/22 - 03/07/23 [facility] [address] [facility], 4th [address] [place], [place] [address] Attending Physician: Breana Cuevas MD Allergies, Adverse Reactions, Alerts No Known [...] Care Team Personnel Name: Paula Bauer Position: [facility] PCO Associate Professional Member Role: PCP Address: Address: [address] [place] [address]- Name: Jann Solano NP, Shagufta James Position: [facility]O Associate Professional Member Role: Primary Care Nurse Address: Address: [address] [place] [address] [place] [address]- Care Team Related Persons Name: BAL PELLTEIER Address: home [address] [place] [address]
--- OUTSIDE RECORDS SUMMARY | 2023-04-19 12:14 | XMS_ITS | Continuity of Care Document ---
Author Name Unknown Organization [facility] Address [address] [facility], 4t [address] [place] [address]- Care Team Providers Care Protection Specialist Name Role Phone Paula Bauer Primary Care Physician [place] [facility] [place](s): 02/05/23 - 03/07/23 [facility] [address] [facility], 4th [address] [place], [place] [address] Attending Physician: José Luis Paez Admitting [...] Associate Professional Member Role: PCP Address: Address: [address] [place] [address]- [place] Name: Jann Solano NP, Shagufta James Position: [facility] PCO Associate Professional Member Role: Primary Care Nurse Address: Address: [address] [place] [address] [place] [address]- Care Team Related Persons Name: BAL PELLETIER Address: home [address] [place] [address]
--- OUTSIDE RECORDS SUMMARY | 2023-04-19 12:14 | XMS_ITS | Continuity of Care Document ---
Author Name Unknown Organization [facility] Adult Address [address] [place] [address]- Care Team Providers Care Clinical Programmer Name Role Phone Paula Bauer Primary Care Physician Encounter [facility] [place] [place] Date(s): 02/04/23 - 03/06/23 [facility] Adult [address] [place] [place] [address]- Allergies, Adverse Reactions, Alerts No Known Allergies [...] Care Team Personnel Name: Paula Bauer Position: [facility] PCO Associate Professional Member Role: PCP Address: Address: [address] [place] [address]. [address] [place] [address]- Name: Shagufta Alvarado NP Position: [facility] PCO Associate Professional Member Role: Primary Care Nurse Address: Address: [address] [place] [address] [address] [facility] [place] [address]- Care Team Related Persons Name: BAL PELLETIER Address: home [address] [place] [address]
== END 2023-04-19 14:45 | disposition home or self-care (01) ==
PROVIDERS: Emergency Provider Emergency Medicine
DX: M20.011 Mallet finger of right finger(s) (principal); R51.9 Headache, unspecified; M79.641 Pain in right hand; Z79.899 Other long term (current) drug therapy
CPT/HCPCS: 70450; 70486; 73130; 99284

== ENCOUNTER 2023-04-21 10:19 | Outpatient (AMB) | payer OTHER, SELFPAY ==
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
== END 2023-04-21 10:45 | disposition home or self-care (01) ==
PROVIDERS: Visit Provider Physician Assistant
DX: M20.011 Mallet finger of right finger(s) (principal); S61.236A Puncture wound without foreign body of right little finger without damage to nail, initial encounter
CPT/HCPCS: 99203

== ENCOUNTER → 2023-04-21 10:19 | Outpatient (BNVA) | payer OTHER, SELFPAY | PROVIDERS: Visit Provider Physician Assistant | DX: M20.011 Mallet finger of right finger(s) (principal) | CPT/HCPCS: 99202 ==

== ENCOUNTER 2023-05-26 08:36 | Emergency (ER) | payer SELFPAY ==
[2023-05-26 08:44] VITALS: BP 111/64; PULSE 94; RESP 18; TEMP 36.5; O2SAT 95; BMI 27.9
--- NOTE | 2023-05-26 09:37 | ED.GENADULT ---
HPI - General Adult General Chief complaint: Extremity Problem Stated complaint: R Hand Numbness Time Seen by Provider: 05/26/23 09:05 Source: patient Mode of arrival: ambulatory Limitations: no limitations History of Present Illness HPI narrative: Patient is a 28-year-old exwmi-sjcf-gcwnusmm female presenting to the emergency department with complaint of right wrist and hand pain since last night. States that the pain begins in right volar wrist and radiates through hand to index finger and thumb. 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 Reports associated numbness to right index finger. Denies any fall or other trauma. Used Tylenol with good temporary relief. MD complaint: right hand and wrist pain Onset (ago): hour(s) Location: right and upper extremity Radiation: distal Severity: moderate Quality: burning Pain Consistency: intermittent Relieving factors: rest Exacerbating factors: movement Associated symptoms: denies other symptoms Treatments prior to arrival: other (tylenol) Related Data Previous Rx's Medication Instructions Recorded clomiphene citrate 50 mg tablet 50 mg PO DAILY 5 days #30 tabs 07/06/20 sumatriptan 5 mg/actuation nasal 5 mg intranasal Q2-4H PRN migraine 10/25/20 spray headache #6 ea sumatriptan succinate 50 mg tablet See Rx Instructions PO .COMPLEX 05/05/22 #14 tabs doxycycline monohydrate 100 mg 100 mg PO BID #20 tabs 03/01/23 tablet amoxicillin 875 mg-potassium 1 tab PO BID 7 days #14 tabs 04/19/23 clavulanate 125 mg tablet naproxen 500 mg tablet 500 mg PO BID #14 tabs 05/26/23 prednisone 20 mg tablet 40 mg (2 x 20 mg) PO DAILY #10 tabs 05/26/23 Allergies Allergy/AdvReac Type Severity Reaction Status Date / Time No Known Allergies Allergy Verified 04/21/23 10:22 Review of Systems Review of Systems: As per HPI. Yes all other systems are reviewed and are negative Constitutional: Constitutional: Reports as per HPI [facility] Social History Alcohol intake: current Alcohol intake frequency: holidays/special occasions only Advance Directives: No Sexual orientation: Straight/Heterosexual Gender identity: Female Physical Exam ED Vital Signs: Vital Signs - 24 hr 05/26/23 08:44 Temperature 97.7 F Pulse Rate 94 Respiratory Rate 18 Blood Pressure 111/64 Pulse Oximetry 95 Oxygen Delivery Method Room Air BMI result Body Mass Index 27.9 Vital signs have been reviewed and appear to be correct. Blood pressure normal. Heart rate normal. Respiratory rate normal. Temperature normal. Oxygen saturation normal. Const General: cooperative, healthy appearing and no acute distress Orientation/consciousness: oriented to person, oriented to place, oriented to time and patient oriented x3 Limitations: no limitations HENMT Head: Yes normocephalic and Yes atraumatic Ears: external ears normal General nose exam: Normal external nose present Face and sinus: Yes face symmetric Mouth: oropharynx normal and moist mucous membranes Throat: Yes uvula midline Eyes Pupils: Equal, round and reactive pupils present Neck Neck: Yes normal visual inspection and Yes supple Resp Effort & Inspection: normal respiratory effort and able to speak in complete sentences Auscultation: clear to auscultation bilaterally Cardio Rate: regular rate Rhythm: regular rhythm Heart sounds: S1 normal heart sound present and S2 normal heart sound present GI Palpation (GI): Soft to palpation and nontender Auscultation: normoactive bowel sounds General: Yes no CVA tenderness Back/Spine/Pelvis Back: no CVA tenderness Skin General skin exam: elasticity normal and turgor normal Neuro General: oriented to person, oriented to place, oriented to time, patient oriented x3, moves all extremities, no focal motor deficits and CN's II-XI intact bilaterally Cranial nerves: Yes Equal, round and reactive pupils present Cognition (Neuro): normal cognition Extrem General: Yes full ROM, Yes no pedal edema and Yes no calf tenderness Right upper extremity: wrist Details: normal to inspection, tenderness Location: of the volar wrist, normal ROM and radial pulse present; no swelling, Tinel's positive and Phalen's positive and Extremity exam: right hand Details: normal to inspection, neuromotor exam abnormal, neurosensory exam normal and normal ROM of fingers Psych Mental Status: mental status grossly normal Affect: normal affect Thought process: Normal thought process present Medical Decision Making Medical Decision Making MDM Narrative: Patient is a 28-year-old lzuox-mbiq-nolqvleq female presenting to the emergency department with complaint of right wrist and hand pain since last night. On exam patient is awake, A+Ox3, VS WNL, afebrile, normal neurological exam without focal deficits, physical exam findings as above. Physical exam consistent with carpal tunnel syndrome. Will prescribe short course of prednisone and naproxen, applied EUGENIO wrap in ED with +CMS before and after application. Advised ice, limit use of R hand until symptoms improve. Referral to ortho for ongoing symptoms. Return precautions discussed. Patient verbalized understanding of and agreement with plan. Differential Diagnosis Differential Diagnoses: The differential diagnosis associated with the presentation includes carpal tunnel, cervical radiculopathy, median neuropathy External Record Review External record reviewed: Inpatient record, Office record and Outpatient record Tests considered The following testing was considered but not selected: Considered x-ray, not indicated based on physical exam findings and reported history Prescription Management I considered prescription management with: Pain Medication and Other Discharge Plan Discharge Clinical Impression: Carpal tunnel syndrome of right wrist Patient Disposition: Home, Self-Care Instructions: R.I.C.E. Treatment (ED) Additional Instructions: You are evaluated in emergency department today for right wrist and hand pain which is likely related to carpal tunnel syndrome. You should wear the Eugenio wrap provided as needed for support. You should apply ice to the affected area for 10-15 minutes at a time several times daily, using caution not to apply ice directly to the skin. You are being prescribed naproxen to decrease inflammation as well as a short course of a steroid called prednisone to decrease inflammation. You should avoid overuse of your wrist and hand until symptoms have improved. You are being referred to Orthopedics for any ongoing symptoms, please call their office if needed. Return to the emergency department if you develop new weakness, worsening numbness, tingling, or change of color to your hand. Prescriptions: New prednisone 20 mg tablet 40 mg PO DAILY Qty: 10 0RF naproxen 500 mg tablet 500 mg PO BID Qty: 14 0RF No Action sumatriptan 5 mg/actuation spray,non-aerosol 5 mg intranasal Q2-4H PRN (Reason: migraine headache) Qty: 6 0RF Rx Instructions: into each nostril once; if headache remains, may repeat total dose once after at least 2 hours sumatriptan succinate 50 mg tablet See Rx Instructions .ROUTE .COMPLEX Qty: 14 0RF Rx Instructions: take 1 tab at onset of headache; if no relief may repeat 1 tab after at least 2 hrs; max = 4 tabs/24 hr doxycycline monohydrate 100 mg tablet 100 mg PO BID Qty: 20 0RF amoxicillin-pot clavulanate 875-125 mg tablet 1 tab PO BID 7 Days Qty: 14 0RF clomiphene citrate 50 mg tablet 50 mg PO DAILY 5 Days Qty: 30 0RF Referrals: [facility] [Provider Group]
--- NOTE | 2023-05-26 10:16 | PC.NURSE ---
patient a&ox3, c/o rt hand pain, sandhya wrap applied per request of provider pt has + csm/pulses, call oliver within reach, will continue to monitor
== END 2023-05-26 10:25 | disposition home or self-care (01) ==
PROVIDERS: Emergency Provider Emergency Medicine
DX: G56.01 Carpal tunnel syndrome, right upper limb (principal)
CPT/HCPCS: 99282; 99283

== ENCOUNTER 2023-07-18 04:55 | Emergency (ER) | payer SELFPAY ==
--- NOTE | 2023-07-18 | ECG_ITS ---
Test Reason : CHEST PAIN Blood Pressure : / mmHG Vent. Rate : 111 BPM Atrial Rate : 111 BPM P-R Int : 180 ms QRS Dur : 080 ms QT Int : 324 ms P-R-T Axes : 070 073 041 degrees QTc Int : 440 ms Sinus tachycardia Otherwise normal ECG When compared with ECG of 20-OCT-2017 12:30, Vent. rate has increased BY [address] no longer elevated in Inferior leads Referred By: Generic ED Physician Electronically Signed By:FAIZAN PARKER
--- NOTE | ~2023-07-18 | XR_ITS ---
EXAMINATION: XR CHEST CLINICAL INFORMATION: Dyspnea. COMPARISON: 07/09/2022 TECHNIQUE: Frontal view of the chest was obtained. FINDINGS: No significant abnormality is noted involving the heart, lungs, mediastinum, bony thorax or soft tissues. XR/XR chest 1V IMPRESSION: Unremarkable examination.
[2023-07-18 05:02] VITALS: BMI 27.4
[2023-07-18 05:07] VITALS: BP 123/74; PULSE 114; RESP 18; TEMP 39.1; O2SAT 97
[2023-07-18] MEDS: Ibuprofen 600 MG TABLET PO (05:15)
[2023-07-18 05:18] VITALS: PULSE 105; O2SAT 98
[2023-07-18 05:29] LABS: IDNOW Serial# 9DB6401D; Influenza A Positive (Negative)
--- NOTE | 2023-07-18 05:32 | ED_ITS ---
HPI - URI/Sore Throat General Chief Complaint: Upper Respiratory Symptoms Stated Complaint: Chest pain, bodyaches Time Seen by Provider: 07/18/23 05:31 Source: patient Mode of arrival: ambulatory Limitations: no limitations History of Present Illness HPI Narrative: Patient with cold symptoms nasal congestion dry cough for last 2 days the hospital complaining of chest tightness with dry cough no other family member sick Related Data Previous Rx's Medication Instructions Recorded clomiphene citrate 50 mg tablet 50 mg PO DAILY 5 days #30 tabs 07/06/20 sumatriptan 5 mg/actuation nasal 5 mg intranasal Q2-4H PRN migraine 10/25/20 spray headache #6 ea sumatriptan succinate 50 mg tablet See Rx Instructions PO .COMPLEX 05/05/22 #14 tabs doxycycline monohydrate 100 mg 100 mg PO BID #20 tabs 03/01/23 tablet amoxicillin 875 mg-potassium 1 tab PO BID 7 days #14 tabs 04/19/23 clavulanate 125 mg tablet naproxen 500 mg tablet 500 mg PO BID #14 tabs 05/26/23 prednisone 20 mg tablet 40 mg (2 x 20 mg) PO DAILY #10 tabs 05/26/23 codeine 10 mg-guaifenesin 100 mg/5 10 ml PO Q6H PRN cough #237 mL 07/18/23 mL oral liquid ibuprofen 600 mg tablet 600 mg PO Q6H PRN fever or pain 07/18/23 #30 tabs Allergies Allergy/AdvReac Type Severity Reaction Status Date / Time No Known Allergies Allergy Verified 07/18/23 05:04 Review of Systems Review of Systems: Yes all other systems are reviewed and are negative [facility] Social History Social History Alcohol intake: current Alcohol intake frequency: does not drink Smoked in Last 30 Days: No Use of substances other than those prescribed or required for medical reasons: No Patient : No Sexual orientation: Straight/Heterosexual Gender identity: Female Physical Exam Vital Signs: Vital Signs: Last Vital Signs Temp 102.3 F H 07/18/23 05:07 Pulse 114 H 07/18/23 05:07 Resp 18 07/18/23 05:07 BP 123/74 07/18/23 05:07 Pulse Ox 98 07/18/23 05:18 O2 Del Method Room Air 07/18/23 05:18 BMI result Body Mass Index 27.4 Appearance: Alert. Oriented X3. No acute distress. ENT: Pharynx normal. Oral Mucosa moist nasal congestion+ with frequent cough Neck: Normal inspection. Neck supple. CVS: Normal heart rate and rhythm. Pulses normal. Respiratory: No respiratory distress. Equal air entry bilateral, no wheezing/rales/rhonchi Skin: Skin warm and dry. Normal skin color. Normal skin turgor. Extremities: No lower extremity edema. Neuro: Oriented X 3. Medications Administered Discontinued Medications Generic Name Dose Route Start Last Admin Trade Name Freq PRN Reason Stop Dose Admin Ibuprofen 600 mg 07/18/23 05:08 07/18/23 05:15 Ibuprofen 600 Mg Tablet PO 07/18/23 05:09 600 mg ONCE ONE Administration Medical Decision Making Lab Data Labs: Lab Results 07/18/23 Range/Units 05:12 COVID-19 (DANIEL) Negative (Negative) COVID-19 Clin Com See Note Influenza Type A (SUE) Positive A (Negative) Influenza Type B (SUE) Negative (Negative) Influenza A & B Note See Note Discharge Plan Discharge Clinical Impression: Influenza Patient Disposition: Home, Self-Care Instructions: Influenza (ED) Additional Instructions: You have influenza A Social distancing as advised Cough syrup as prescribed Tylenol/Motrin for fever Prescriptions: New codeine-guaifenesin 10-100 mg/5 mL liquid 10 ml PO Q6H PRN (Reason: cough) Qty: 237 0RF ibuprofen 600 mg tablet 600 mg PO Q6H PRN (Reason: fever or pain) Qty: 30 0RF No Action sumatriptan 5 mg/actuation spray,non-aerosol 5 mg intranasal Q2-4H PRN (Reason: migraine headache) Qty: 6 0RF Rx Instructions: into each nostril once; if headache remains, may repeat total dose once after at least 2 hours sumatriptan succinate 50 mg tablet See Rx Instructions .ROUTE .COMPLEX Qty: 14 0RF Rx Instructions: take 1 tab at onset of headache; if no relief may repeat 1 tab after at least 2 hrs; max = 4 tabs/24 hr doxycycline monohydrate 100 mg tablet 100 mg PO BID Qty: 20 0RF amoxicillin-pot clavulanate 875-125 mg tablet 1 tab PO BID 7 Days Qty: 14 0RF prednisone 20 mg tablet 40 mg PO DAILY Qty: 10 0RF naproxen 500 mg tablet 500 mg PO BID Qty: 14 0RF clomiphene citrate 50 mg tablet 50 mg PO DAILY 5 Days Qty: 30 0RF Stand Alone Forms: Work/School Release
[2023-07-18 05:34] LABS: COVID-19 Test Negative (Negative); IDNOW Serial# 152EDE1D; Influenza B2 Negative (Negative)
[2023-07-18] MEDS: guaiFEN/Codeine SF 200/20/10ML 10 ML LIQUID PO (05:42)
[2023-07-18 05:45] VITALS: BP 119/62; PULSE 106; RESP 18; TEMP 38.4; O2SAT 95
== END 2023-07-18 05:56 | disposition home or self-care (01) ==
LOC: HO.ED 05:54
PROVIDERS: Emergency Provider Internal Medicine
DX: J10.1 Influenza due to other identified influenza virus with other respiratory manifestations (principal); Z11.52 Encounter for screening for COVID-19
CPT/HCPCS: 71045; 87502; 87635; 93005; 99283; 99285

== ENCOUNTER → 2023-07-18 05:04 | Outpatient (BNV) | payer SELFPAY | PROVIDERS: Emergency Provider Internal Medicine; Visit Provider Internal Medicine | DX: R00.0 Tachycardia, unspecified (principal) | CPT/HCPCS: 93010 ==

== ENCOUNTER 2023-09-05 12:56 | Emergency (ER) | payer SELFPAY ==
[2023-09-05 13:04] VITALS: BP 126/84; PULSE 82; RESP 18; TEMP 36.3; O2SAT 98; BMI 26.5
--- NOTE | 2023-09-05 13:04 | ED.GENADULT ---
HPI - General Adult General Chief complaint: General Medical Stated complaint: Alcohol Poisonings Time Seen by Provider: 09/05/23 13:51 Source: patient and family Mode of arrival: ambulatory Limitations: no limitations History of Present Illness HPI narrative: 28yo female here with complaints of vomiting and inability to drink PO fluids after drinking more then 10 drinks of hard liquor last night. No abdominal pain, diarrhea, fevers, chills, chest pain or SOB. Emesis is NBNB. Related Data Previous Rx's Medication Instructions Recorded clomiphene citrate 50 mg tablet 50 mg PO DAILY 5 days #30 tabs 07/06/20 sumatriptan 5 mg/actuation nasal 5 mg intranasal Q2-4H PRN migraine 10/25/20 spray headache #6 ea sumatriptan succinate 50 mg tablet See Rx Instructions PO .COMPLEX 05/05/22 #14 tabs doxycycline monohydrate 100 mg 100 mg PO BID #20 tabs 03/01/23 tablet amoxicillin 875 mg-potassium 1 tab PO BID 7 days #14 tabs 04/19/23 clavulanate 125 mg tablet naproxen 500 mg tablet 500 mg PO BID #14 tabs 05/26/23 prednisone 20 mg tablet 40 mg (2 x 20 mg) PO DAILY #10 tabs 05/26/23 codeine 10 mg-guaifenesin 100 mg/5 10 ml PO Q6H PRN cough #237 mL 07/18/23 mL oral liquid ibuprofen 600 mg tablet 600 mg PO Q6H PRN fever or pain 07/18/23 #30 tabs ondansetron 4 mg disintegrating 4 mg PO Q6H PRN nausea and 09/05/23 tablet vomiting #15 tabs Allergies Allergy/AdvReac Type Severity Reaction Status Date / Time No Known Allergies Allergy Verified 07/18/23 05:04 Review of Systems Review of Systems: Yes all other systems are reviewed and are negative Constitutional: Constitutional: Reports no additional constitutional complaints, Denies body ache(s), Denies chills, Denies fever(s), Denies headache(s) and Denies weakness Eyes: Eyes: Reports no additional eye complaints and Denies change in vision ENT: Reports system reviewed and no additional complaints, except as documented, Denies dizziness, Denies headache(s), Denies nasal congestion, Denies nasal discharge and Denies neck pain Cardiovascular: Cardiovascular: Reports no additional cardiovascular complaints, Denies chest pain, Denies leg edema and Denies dyspnea Respiratory: Respiratory: Reports no additional respiratory complaints, Denies cough and Denies dyspnea Gastrointestinal: Gastrointestinal: Reports no additional gastrointestinal complaints, Denies abdominal pain, Denies diarrhea, Reports nausea and Reports vomiting Genitourinary: Genitourinary: Reports no additional female genitourinary complaints and Denies urinary incontinence Musculoskeletal: Musculoskeletal: Reports no additional musculoskeletal complaints, Denies back pain, Denies arthralgias, Denies joint swelling, Denies neck pain, Denies numbness and Denies tingling Integumentary/Breasts: Skin/Breast: Reports system reviewed and no additional complaints, except as docu and Denies rash Neurologic: Reports system reviewed and no additional complaints, except as documented, Denies Abnormal speech present, Denies dizziness, Denies headache(s), Denies numbness, Denies tingling and Denies weakness PMFSH Past Medical History Attestation statement: The following information was validated with the patient. Source: old records reviewed and nursing notes reviewed Social History Social History Alcohol intake: current Alcohol intake frequency: does not drink Advance Directives: No Advance Directives Information Provided: No Sexual orientation: Straight/Heterosexual Gender identity: Female Physical Exam ED Vital Signs: Vital Signs - 24 hr 09/05/23 13:04 09/05/23 15:15 Temperature 97.3 F Pulse Rate 82 77 Respiratory Rate 18 Blood Pressure 126/84 118/62 Pulse Oximetry 98 97 Oxygen Delivery Method Room Air Room Air BMI result Body Mass Index 26.5 Const General: cooperative, healthy appearing, comfortable and no acute distress Orientation/consciousness: patient oriented x3 Limitations: no limitations HENMT Head: Yes normal to inspection Ears: hearing grossly normal bilaterally and TM's normal bilaterally General nose exam: Normal external nose present Face and sinus: Yes normal facial exam Mouth: Normal oral and palatal mucosa present Throat: Yes posterior oropharynx normal, Yes tonsils normal and Yes uvula midline Eyes General: appearance normal, both eyes and all related structures Pupils: Equal, round and reactive pupils present Neck Neck: Yes normal visual inspection, Yes full ROM, Yes no lymphadenopathy and Yes no meningeal signs Chest Chest palpation & inspection: normal inspection of the chest Resp Effort & Inspection: normal respiratory effort Auscultation: clear to auscultation bilaterally Cardio Rate: regular rate Rhythm: regular rhythm Peripheral pulses: Peripheral pulses 2+ throughout GI Inspection: Yes normal to inspection Palpation (GI): Soft to palpation and nontender Auscultation: normal bowel sounds Back/Spine/Pelvis Thoracic/Lumbar Spine: thoracic and lumbar spine normal to inspection Skin General skin exam: no rashes or lesions noted Neuro General: patient oriented x3, no meningeal signs, no focal motor deficits and normal sensation to monofilament Cranial nerves: Yes Equal, round and reactive pupils present Cognition (Neuro): normal cognition Speech: No Abnormal speech present Gait exam (Neuro): Normal gait present Motor exam (neuro): 5/5 motor strength present throughout Extrem General: Yes normal to inspection, Yes no pedal edema and Yes no calf tenderness Course Course Course Narrative: This is a rapid medical exam: Additional HPI, ROS, PE not included below will be deferred to primary provider. Patient is a 28-year-old female presenting to the emergency department with complaint of vomiting. States she drank 3 bottles of liquor, but refuses to further elaborate, hostile in triage. Reports blood-tinged emesis. Awake, alert, oriented and in no acute distress in triage. Plan: labs, viral swabs Reevaluation(s) Reevaluation #1: After the first dose of zofran the patient immediately drank 8 ounces of water. Will attempt second dose with recommendation to wait 30 minutes prior to attempting PO trial Reevaluation #2: 1556- patient had deejay syeda and crackers with no additional vomiting episodes. Feels improved. Will discharge home with Zofran p.r.n.. Reviewed worrisome signs and symptoms of when to return to the emergency room. Comfortable plan for discharge home Medications Administered Discontinued Medications Generic Name Dose Route Start Last Admin Trade Name Freq PRN Reason Stop Dose Admin Ondansetron HCl 4 mg 09/05/23 14:12 09/05/23 14:20 Ondansetron Odt 4 Mg Tab.Rapdis TRANSLINGU 09/05/23 14:13 4 mg ONCE ONE Administration Ondansetron HCl 4 mg 09/05/23 14:43 09/05/23 14:54 Ondansetron Odt 4 Mg Tab.Rapdis TRANSLINGU 09/05/23 14:44 4 mg ONCE ONE Administration Medical Decision Making Medical Decision Making [facility] Narrative: 28yo female here with complaints of vomiting and inability to drink PO fluids after drinking more then 10 drinks of hard liquor last night. No abdominal pain, diarrhea, fevers, chills, chest pain or SOB. Emesis is NBNB. Abdomen soft/nontender LS CTA VSS WIll obtain labs, viral testing Attempt SL zofran and PO trial Differential Diagnosis Differential Diagnoses: The differential diagnosis associated with the presentation includes doubt acute abdomen Admission/Observation Consideration of admission/observation: Escalation of care including admission/observation considered now tolerating p.o., does not need IV or IV fluids and or admission Lab Data [facility] Lab Attestation statement: I reviewed the patient's lab results. 09/05/23 13:13 09/05/23 13:14 Labs: Lab Results 09/05/23 09/05/23 Range/Units 13:13 13:14 WBC 8.7 (4.8-10.8) X10*3/uL RBC 4.75 (4.20-5.50) X10*6/uL Hgb 15.5 (12.0-16.0) g/dl Hct 44.4 (37.0-47.0) % MCV 93.5 (80.0-98.0) fL MCH 32.6 (27.0-33.0) pg MCHC 34.9 (31.0-35.0) g/dl RDW 12.7 (11.0-16.0) % Plt Count 348 D (160-400) X10*3/uL MPV 10.2 (9.4-12.3) fL Immature Gran % (Auto) 0.3 (0.0-0.4) % Neut % (Auto) 65.3 (45-73) % Lymph % (Auto) 28.4 (20-40) % Gentry % (Auto) 4.9 (2-11) % Eos % (Auto) 0.5 (0-4) % Baso % (Auto) 0.6 (0-2) % Lymph # (Auto) 2.5 (1.2-4.9) X10*3/uL Gentry # (Auto) 0.4 (0.1-1.2) X10*3/uL Eos # (Auto) 0.0 (0.0-0.4) X10*3/uL Baso # (Auto) 0.1 (0.0-0.2) X10*3/uL Abs Immat Gran (auto) 0.03 (0.00-0.03) X10*3/uL Absolute Neuts (auto) 5.7 (2.0-8.3) x10*3/uL Absolute Nucleated RBC 0.000 (0.0-0.012) X10*3/uL Nucleated RBC % (auto) 0.0 (0.0-0.2) /100WBC Sodium 147 H (135-145) mmol/L Potassium 3.9 (3.3-5.1) mmol/L Chloride 108 (96-108) mmol/L Carbon Dioxide 27 (22-29) mmol/L Anion Gap 16 (12-20) BUN 11 (9-16) mg/dL Creatinine 0.75 (0.5-1.4) mg/dL Estim Creat Clear Calc 97.6 Estimated GFR > 60 Random Glucose 99 (60-115) mg/dL Calcium 9.5 (8.4-10.2) mg/dL Magnesium 2.1 (1.6-2.6) mg/dL Total Bilirubin 0.5 (0.0-1.0) mg/dL AST 18 (5-31) U/L ALT 15 (0-31) U/L Alkaline Phosphatase 71 (39-117) U/L Total Protein 8.2 H (6.5-8.0) g/dL Albumin 4.8 (3.5-5.0) g/dL Beta HCG, Quant < 2 mIU/mL Influenza Type A (PCR) NEGATIVE (Negative) Influenza Type B (PCR) NEGATIVE (Negative) RSV RNA Qual (PCR) NEGATIVE (Negative) SARS-CoV-2 RNA (RT-PCR) NEGATIVE (Negative) Independent Historian Clinical information obtained from an independent historian. History obtained from or confirmed by: Friend Tests considered The following testing was considered but not selected: no focal abdominal pain to suggest need for CT abdomen and pelvis Discharge Plan Discharge Clinical Impression: Vomiting Patient Disposition: Home, Self-Care Instructions: Acute Nausea and Vomiting (ED) Additional Instructions: Your blood work was normal Your testing for flu, covid, rsv are negative Use the zofran as needed for nausea. Wait 20-30 minutes before drinking liquids after taking it. Small sips at a time then advance diet as tolerated Prescriptions: New ondansetron 4 mg tablet,disintegrating 4 mg PO Q6H PRN (Reason: nausea and vomiting) Qty: 15 0RF No Action sumatriptan 5 mg/actuation spray,non-aerosol 5 mg intranasal Q2-4H PRN (Reason: migraine headache) Qty: 6 0RF Rx Instructions: into each nostril once; if headache remains, may repeat total dose once after at least 2 hours sumatriptan succinate 50 mg tablet See Rx Instructions .ROUTE .COMPLEX Qty: 14 0RF Rx Instructions: take 1 tab at onset of headache; if no relief may repeat 1 tab after at least 2 hrs; max = 4 tabs/24 hr doxycycline monohydrate 100 mg tablet 100 mg PO BID Qty: 20 0RF amoxicillin-pot clavulanate 875-125 mg tablet 1 tab PO BID 7 Days Qty: 14 0RF prednisone 20 mg tablet 40 mg PO DAILY Qty: 10 0RF naproxen 500 mg tablet 500 mg PO BID Qty: 14 0RF codeine-guaifenesin 10-100 mg/5 mL liquid 10 ml PO Q6H PRN (Reason: cough) Qty: 237 0RF ibuprofen 600 mg tablet 600 mg PO Q6H PRN (Reason: fever or pain) Qty: 30 0RF clomiphene citrate 50 mg tablet 50 mg PO DAILY 5 Days Qty: 30 0RF Referrals: Physician,None [Primary Care Provider] - 1 week Stand Alone Forms: Work/School Release
[2023-09-05 13:20] LABS: MANUAL DIFF FLAG NO
[2023-09-05 13:23] LABS: Basophils Absolute Auto 0.1 X10*3/uL (0.0-0.2); Basophils Percent Auto 0.6 % (0-2); Eosinophils Percent Auto 0.5 % (0-4); Hematocrit 44.4 % (37.0-47.0); Hemoglobin 15.5 g/dl (12.0-16.0); Imm Gran Abs Auto 0.03 X10*3/uL (0.00-0.03); Imm Gran Pct Auto 0.3 % (0.0-0.4); Lymphocytes Absolute Auto 2.5 X10*3/uL (1.2-4.9); Lymphocytes Percent Auto 28.4 % (20-40); Mean Corpuscular HGB Conc 34.9 g/dl (31.0-35.0); Mean Corpuscular Hemoglobin 32.6 pg (27.0-33.0); Mean Corpuscular Volume 93.5 fL (80.0-98.0); Mean Platelet Volume 10.2 fL (9.4-12.3); Monocytes Absolute Auto 0.4 X10*3/uL (0.1-1.2); Monocytes Percent Auto 4.9 % (2-11); Neutrophils Absolute Auto 5.7 x10*3/uL (2.0-8.3); Neutrophils Percent Auto 65.3 % (45-73); Platelet Count 348 X10*3/uL (160-400); Red Blood Count 4.75 X10*6/uL (4.20-5.50); Red Cell Distribution Width 12.7 % (11.0-16.0); White Blood Count 8.7 X10*3/uL (4.8-10.8)
[2023-09-05 14:00] LABS: Alanine Aminotransferase 15 U/L (0-31); Albumin Level 4.8 g/dL (3.5-5.0); Alkaline Phosphatase 71 U/L (39-117); Anion Gap 16 (12-20); Aspartate Amino Transferase 18 U/L (5-31); Bilirubin Total 0.5 mg/dL (0.0-1.0); Blood Urea Nitrogen 11 mg/dL (9-16); Calcium 9.5 mg/dL (8.4-10.2); Carbon Dioxide 27 mmol/L (22-29); Chloride 108 mmol/L (96-108); Creatinine Clr Calc Pharmacy 97.6; Estimated Glomerular Filt Rate > 60; Glucose Random 99 mg/dL (60-115); Magnesium 2.1 mg/dL (1.6-2.6); Potassium 3.9 mmol/L (3.3-5.1); Sodium 147 mmol/L (135-145); Total Protein 8.2 g/dL (6.5-8.0)
[2023-09-05 14:04] LABS: HCG Quantitative < 2 mIU/mL
[2023-09-05 14:06] LABS: Influenza A PCR NEGATIVE (Negative); Influenza B PCR NEGATIVE (Negative); Resp Syncy Virus RNA Qual PCR NEGATIVE (Negative); SARS COV2 PCR INHOUSE NEGATIVE (Negative)
[2023-09-05] MEDS: Ondansetron ODT 4 MG TAB.RAPDIS TRANSLINGU ×2 (14:20→14:54)
[2023-09-05 15:15] VITALS: BP 118/62; PULSE 77; O2SAT 97
--- NOTE | 2023-09-05 15:31 | PC.NURSE ---
pt vomitted x1 after xofran administration, 4mg zofran repeated. pt has not vomited since second dose. PO trial underway with ginerale and saltine crackers, call oliver within reach
== END 2023-09-05 16:28 | disposition home or self-care (01) ==
PROVIDERS: Registered Nurse Emergency; Emergency Provider Student in an Organized Health Care Education/Training Program
DX: R11.10 Vomiting, unspecified (principal); R13.10 Dysphagia, unspecified; Z11.52 Encounter for screening for COVID-19; Z20.828 Contact with and (suspected) exposure to other viral communicable diseases
CPT/HCPCS: 0241U; 80053; 83735; 84702; 85025; 99282; 99283

== ENCOUNTER 2024-01-07 11:43 | Emergency (ER) | payer OTHER, SELFPAY ==
[2024-01-07 11:55] VITALS: BP 117/54; PULSE 61; RESP 14; TEMP 36.1; O2SAT 98; BMI 25.6
--- NOTE | 2024-01-07 11:55 | ED.EXTPRO ---
HPI - Extremity Problem General Chief complaint: Extremity Injury, Upper Stated complaint: R Hand Pain No Injury Time Seen by Provider: 01/07/24 12:01 Source: patient, RN notes reviewed and old records reviewed Mode of arrival: ambulatory Limitations: no limitations History of Present Illness ED Provider: Alyssa Capone PA-C HPI Narrative: 28 yo right hand dominant female with history of carpal tunnel sydrome, mallet deformity of right pinky finger who has followed w/ [facility] in the past presents to the ER for evaluation of right hand pain, swelling and tingling for the last 2 days. No injury or trauma. She reports pain is constant and worse with certain wrist movements. located in the wrist, palm and 1st finger. She states she was seen here last fall, dx carpal tunnel and given steroids and nsaids. she went to [facility] who told her she didnt have CTS and that she sprained her wrist. she had xrays at that time. she works as a AUTOMATED EQUIPMENT ENGINEER TECHNICIAN at [employer] and work aggravates the pain. she has not taken meds yet and has not been using the splint. MD Complaint: extremity pain and extremity swelling Onset (ago): day(s) (2) Pain Consistency: constant Location: right and upper extremity Quality: sharp Radiation: distal Relieving factors: nothing Exacerbating factors: range of motion and palpation Associated symptoms: denies other symptoms Related Data Previous Rx's ?Medication ?Instructions ?Recorded clomiphene citrate 50 mg tablet 50 mg PO DAILY 5 days #30 tabs 07/06/20 sumatriptan 5 mg/actuation nasal 5 mg intranasal Q2-4H PRN migraine 10/25/20 spray headache #6 ea sumatriptan succinate 50 mg tablet See Rx Instructions PO .COMPLEX 05/05/22 #14 tabs doxycycline monohydrate 100 mg 100 mg PO BID #20 tabs 03/01/23 tablet amoxicillin 875 mg-potassium 1 tab PO BID 7 days #14 tabs 04/19/23 clavulanate 125 mg tablet naproxen 500 mg tablet 500 mg PO BID #14 tabs 05/26/23 prednisone 20 mg tablet 40 mg (2 x 20 mg) PO DAILY #10 tabs 05/26/23 codeine 10 mg-guaifenesin 100 mg/5 10 ml PO Q6H PRN cough #237 mL 07/18/23 mL oral liquid ibuprofen 600 mg tablet 600 mg PO Q6H PRN fever or pain 07/18/23 #30 tabs ondansetron 4 mg disintegrating 4 mg PO Q6H PRN nausea and 09/05/23 tablet vomiting #15 tabs Allergies Allergy/AdvReac Type Severity Reaction Status Date / Time No Known Allergies Allergy Verified 01/07/24 11:56 Review of Systems Review of Systems: Yes all other systems are reviewed and are negative [facility] Social History Social History Alcohol intake: current Alcohol intake frequency: does not drink Advance Directives: No Sexual orientation: Straight/Heterosexual Gender identity: Female Physical Exam Vital Signs: Vital Signs: Last Vital Signs Temp 96.9 F 01/07/24 12:04 Pulse 61 01/07/24 12:04 Resp 14 01/07/24 12:04 BP 117/54 L 01/07/24 12:04 Pulse Ox 98 01/07/24 12:04 O2 Del Method Room Air 01/07/24 12:04 BMI result Body Mass Index 25.6 Appearance: Alert. Oriented X3. No acute distress. HEENT: normal inspection CVS: Normal heart rate and rhythm. Pulses normal. Respiratory: No respiratory distress. Skin: Skin warm and dry. Normal skin color. Normal skin turgor. No rashes. Extremities: minimal generalized swelling of the palmar aspect of the right hand compared to the left. tenderness of the mid palm with reproduction of tingling sensation. normal finger to thumb adduction x5 with weakness in the 1st and 2nd digits with abduction. 2+ radial pulse with <3 sec cap refill. slightly weaker hand grasp on the right vs left. Neuro: Oriented X 3. No motor deficit. No sensory deficit. Course Course Course Narrative: This is a Rapid Medical Examination (RME) performed by Alyssa Capone PA-C in triage. Full HPI, ROS, assessment and treatment plan per primary provider in the Main ED. Plan: Medical Decision Making Medical Decision Making MDM Narrative: 28 yo right hand dominant female presenting with right wrist and hand pain and swelling x2 days. symptoms and clinical presentation most c/w carpal tunnel syndrome flare. no need for imaging today. patient advised to wear splint, take NSAIDs and f/u with her orthopedist for further evaluation and treatment. Differential Diagnosis Differential Diagnoses: The differential diagnosis associated with the presentation includes carpal tunnel syndrome, wrist sprain, radiculopathy, MS External Record Review External record reviewed: Outpatient record, Prior outpatient labs and Prior outpatient radiology Tests considered The following testing was considered but not selected: xrays hand and wrist Prescription Management I considered prescription management with: Pain Medication and Other (NSAID, prednisone) Chronic Conditions Patient?s care impacted by: Other (carpal tunnel syndrome) Critical Care Time Critical Care Time Critical Care Time: No Discharge Plan Discharge Clinical Impression: Hand pain, right Patient Disposition: Home, Self-Care Instructions: Paresthesia (ED), Carpal Tunnel Surgery (DC) Additional Instructions: recommend wearing the wrist splint at all times unless showering elevate and ice the hand/wrist as often as possible take the remaining prednisone you have at home once this is out, recommend ibuprofen or naproxyn for inflammation follow up with your orthopedist for further evaluation and treatment If you develop new or worsening symptoms call 911 or come back to the ER for further evaluation. Prescriptions: No Action sumatriptan 5 mg/actuation spray,non-aerosol 5 mg intranasal Q2-4H PRN (Reason: migraine headache) Qty: 6 0RF Rx Instructions: into each nostril once; if headache remains, may repeat total dose once after at least 2 hours sumatriptan succinate 50 mg tablet See Rx Instructions .ROUTE .COMPLEX Qty: 14 0RF Rx Instructions: take 1 tab at onset of headache; if no relief may repeat 1 tab after at least 2 hrs; max = 4 tabs/24 hr doxycycline monohydrate 100 mg tablet 100 mg PO BID Qty: 20 0RF amoxicillin-pot clavulanate 875-125 mg tablet 1 tab PO BID 7 Days Qty: 14 0RF prednisone 20 mg tablet 40 mg PO DAILY Qty: 10 0RF naproxen 500 mg tablet 500 mg PO BID Qty: 14 0RF codeine-guaifenesin 10-100 mg/5 mL liquid 10 ml PO Q6H PRN (Reason: cough) Qty: 237 0RF ibuprofen 600 mg tablet 600 mg PO Q6H PRN (Reason: fever or pain) Qty: 30 0RF ondansetron 4 mg tablet,disintegrating 4 mg PO Q6H PRN (Reason: nausea and vomiting) Qty: 15 0RF clomiphene citrate 50 mg tablet 50 mg PO DAILY 5 Days Qty: 30 0RF Interventions: ED Discharge Assessment Last Done: 01/07/24 12:04 Discharge Date/Time: 01/07/24 12:04 Print Language: Djiboutian
--- NOTE | 2024-01-07 11:59 | PC.NURSE ---
pt was seen by triage provider and made aware of discharge care plan
[2024-01-07 12:04] VITALS: BP 117/54; PULSE 61; RESP 14; TEMP 36.1; O2SAT 98
== END 2024-01-07 12:04 | disposition home or self-care (01) ==
PROVIDERS: Emergency Provider Emergency Medicine
DX: M79.641 Pain in right hand (principal); G56.01 Carpal tunnel syndrome, right upper limb; Z79.899 Other long term (current) drug therapy
CPT/HCPCS: 99282

== ENCOUNTER 2024-08-18 08:44 | Emergency (ER) | payer MEDICAID, SELFPAY ==
[2024-08-18 09:26] VITALS: BP 129/77; PULSE 100; RESP 16; TEMP 37.6; O2SAT 97; BMI 24.9
[2024-08-18 10:40] LABS: Influenza A PCR NEGATIVE (Negative); Influenza B PCR POSITIVE (Negative); Resp Syncy Virus RNA Qual PCR NEGATIVE (Negative); SARS COV2 PCR INHOUSE NEGATIVE (Negative)
[2024-08-18] MEDS: Acetaminophen 325 MG TABLET 650 MG PO (12:16)
[2024-08-18 12:23] VITALS: BP 120/81; PULSE 104; RESP 18; TEMP 37.1; O2SAT 98
--- OUTSIDE RECORDS SUMMARY | 2024-08-18 16:51 | XMS_ITS | Clinical Summary ---
Author Organization [facility] [address] [facility] Address [address] [place] [address] Phone Care Team Providers Care Process Improvement Manager Name Role Phone No, Pcp (Do Not Change Name) Primary Care Provid er Unavailable Allergies No known active allergies Medications No known medications Active Problems Problem Noted Date Diagnosed Date Hyperkalemia 03/08/2018 Social History Tobacco Use Types Packs/Day Years Used Date Smoking Tobacco: Never Assessed Comments Unknown Sex and Gender Information Value Date Recorded Sex Assigned at Not on file Legal Sex Female 4:06 PM EDT Gender Identity Not on file Sexual Orientation Not on file Last Filed Vital Signs Vital Sign Reading Time Taken Comments Blood Pressure 111/67 03/08/2018 6:23 PM EDT Pulse 67 03/08/2018 6:23 PM EDT Temperature 36.1 ??C (96.9 ??F) 03/08/2018 6:23 PM ED T Respiratory Rate 18 03/08/2018 6:23 PM EDT Oxygen Saturation 98% 03/08/2018 6:23 PM EDT Inhaled Oxygen Concentration - - Weight - - Height - - Body Mass Index - - Plan of Treatment Health Maintenance Due Date Last Done Comments HIV screening 2006 Hepatitis C screening 2011 Tetanus adult (Td q 10,TDAP once) 2013 Cervical cancer screening 2014 Influenza vaccine 01/28/2024 Covid-19 vaccine series (2023- season) 2024 RSV Discussion (1 - 1-dose 7 5+ series) 2068 Meningococcal Vaccine Aged Out No nneka anson eligible based on patient's age to complete this topic Pneumococcal Vaccine (2 - 49 years) Aged Out No longer eligible based on patient's age to complete this topic Care Teams Process Improvement Manager Relationship Specialty Start Date End Date No, Pcp (Do Not Change Name) PCP - General 03/08/18
--- OUTSIDE RECORDS SUMMARY | 2024-08-18 16:51 | XMS_ITS | Encounter Summary ---
Author Organization [employer] Address [address] [place] [address] [address] [place] [address] Care Team Providers Care Forest Practices Field Coordinator Name Role Phone Altagracia Bloom [facility] Primary Care Provider [phone] Encounter Details Date Type Department Care Team (Latest Contact Info) Description 08/16/2021 Abstract [facility] CONVERSIONS Dental, Provider, DDS Social History Tobacco Use Types Packs/Day Years Used Date Smoking Tobacco: Never Assessed Comments Unknown Sex and Gender Information Value Date Recorded Sex Assigned at Female 04/28/2022 10:25 AM EDT Legal Sex Female 10:25 AM EDT Gender Identity Female 04/28/2022 10:25 AM EDT Sexual Orientation Straight 04/28/2022 10 :25 AM EDT documented as of this encounter Plan of Treatment Not on file documented as of this encounter Visit Diagnoses Not on filedocumented in this encounter Care Teams Forest Practices Field Coordinator Relationship Specialty Start Date End Date Altagracia Bloom FNP [address] [place] [id number] PCP - General Family Medicine 03/26/21 08/03/23 documented as of this encounter
--- OUTSIDE RECORDS SUMMARY | 2024-08-18 16:51 | XMS_ITS | Clinical Summary ---
Author Organization [facility] it Address [address] [place] [address] Care Team Providers Care Welder Fabricator Name Role Phone Unavailable Primary Care Provider Unavailabl e Social History Tobacco Use Types Packs/Day Years Used Date Smoking Tobacco: Never Assessed Comments Unknown Sex and Gender Information Value Date Recorded Sex Assigned at Not on file Legal Sex Female 1:51 PM EST Gender Identity Not on file Sexual Orientation Not on file Plan of Treatment Health Maintenance Due Date Last Done Comments DTaP,Tdap,and Td Vaccines (1 - Tdap) 2012 Hepatitis B Vaccines (1 of 3 - 19+ 3-dose series) 2012 Cervical Cancer Screening: P ap Smear 2014 Depression Screening 07/28/2023 HIV Screening 07/28/2023 Hepatitis C Screening 07/28/2023 Social Influencers of Health Screening 07/28/2023 COVID-19 Vaccine ( - 2023-2 5 season) 2024 Influenza Vaccine (#1) 2024 HIB Vaccines Aged Out No longer eligi ble based on patient's age to complete this topic HPV Vaccines Aged Out No longer eligi ble based on patient's age to complete this topic Hepatitis A Vaccines Aged Out No long er eligible based on patient's age to complete this topic IPV Vaccines Aged Out No longer eligi ble based on patient's age to complete this topic MMR Vaccines Aged Out No longer eligi ble based on patient's age to complete this topic Meningococcal ACWY Vaccine Aged Out N o longer eligible based on patient's age to complete this topic Meningococcal B Vacine Aged Out No lo nger eligible based on patient's age to complete this topic Pneumococcal Vaccine: Pediat rics (0 to 5 Years) and At-Risk Patients (6 to 64 Years) Aged Out No longer eligible b ased on patient's age to complete this topic RSV Immunization Patients Un lucinda 20 months Aged Out No longer eligible b ased on patient's age to complete this topic Varicella Vaccines Aged Out No longer eligible based on patient's age to complete this topic
--- OUTSIDE RECORDS SUMMARY | 2024-08-18 16:51 | XMS_ITS | Clinical Summary ---
Author Organization [employer] Address [address] [place] [address] 7 [place] [address] Care Team Providers Care Publication Distributor Name Role Phone Unavailable Primary Care Provider Unavailabl e Social History Tobacco Use Types Packs/Day Years Used Date Smoking Tobacco: Never Assessed Comments Unknown Sex and Gender Information Value Date Recorded Sex Assigned at Female 04/28/2022 10:25 AM EDT Legal Sex Female 10:25 AM EDT Gender Identity Female 04/28/2022 10:25 AM EDT Sexual Orientation Straight 04/28/2022 10 :25 AM EDT Last Filed Vital Signs Vital Sign Reading Time Taken Comments Blood Pressure 115/73 09/10/2021 12:03 AM EDT Pulse 68 09/10/2021 12:03 AM EDT Temperature - - Respiratory Rate - - Oxygen Saturation - - Inhaled Oxygen Concentration - - Weight 68.8 kg (151 lb 9.6 oz) 09/10/2021 12:03 AM EDT Height 161 cm (5' 3.39 ) 09/10/2021 12:03 AM EDT Body Mass Index 26.52 09/10/2021 12:03 AM EDT Plan of Treatment Health Maintenance Due Date Last Done Comments Depression Screening 1993 Alcohol/Substance Use Screening 2005 Tobacco Screening 2005 Family Planning (PISQ) 2008 Hepatitis B Vaccines (1 of 3 - 19+ 3-dose series) 2012 Pap Smear 04/23/2023 04/23/2020 COVID-19 Vaccine (3 - 2023-2 5 season) 2024 11/05/2020, 10/08/2020 Influenza Vaccine (#1) 2024 Cervical Cancer Screening 04/23/2025 HPV/Cotest 04/23/2025 04/23/2020 DTaP/Tdap/Td Vaccines (2 - T d or Tdap) 11/19/2030 11/19/2020 Zoster Vaccines (1 of 2) 2043 RSV Patients and Patients Aged 60 years or older (1 - 1-dose 75+ series) 2068 HIB Vaccines Aged Out No longer eligi [...] patient's age to complete this topic Meningococcal Vaccine Aged Out No nneka anson eligible based on patient's age to complete this topic Pneumococcal Vaccine: Pediatrics (0 to 5 Years) and At-Risk Patients (6 to 49) Years) Aged Out No longer eligible b ased on patient's age to complete this topic RSV under 20 months Aged Out No longe r eligible based on patient's age to complete this topic Rotavirus Vaccines Aged Out No longer eligible based on patient's age to complete this topic Procedures Procedure Name Priority Date/Time Associated Diagnosis Comments GERRY HISTORICAL HPV DNA, HIGH RISK, CERVICAL Routine 04/23/2020 12:00 AM EDT [facility]P [facility]AGING SYSTEM PAP Routine 04/23/2020 12:00 AM EDT from Last 3 Months or Most Recently Relevant to Health Maintenance Results * (ABNORMAL) HPV DNA, HIGH RISK, CERVICAL (04/23/2020 12:00 AM EDT) HPV DNA, HIGH RISK, CERVICAL Detected( A) NOT DETECTED [facility] Comment: Detected One or more High Risk HPV types (16,18,31,33, 35,39,45,51,52,56,58,59,66,68) was detected. ?? Methodology: Real Time PCR ? 04/23/2020 us Historical Provider HISTORICAL/NON ORDERABLE LABS Final Result [facility] [address] [place] [address], * (ABNORMAL) THINPREP TIS PAP (04/23/2020 12:00 AM EDT) Clinical Information: SEE COMMENT [facility] Comment:None given COMMENT [facility] Comment: EXPLANATORY NOTE: ? The Pap is a screening test for cervical cancer. It is ?? not a diagnostic test and is subject to false negative ?? and false positive results. It is most reliable when a ?? satisfactory sample, regularly obtained, is submitted ?? with relevant clinical findings and history, and when ?? the Pap result is evaluated along with historic and ?? current clinical information. ?? COMMENT: SEE COMMENT [facility] Comment: This Pap test has been evaluated with computer assisted technology. Parking Patroller: SEE COMMENT [facility] Comment: DMM, CT(ASCP) CT screening location: [address] ??[id number] General Categorization: SEE COMMENT(A) [facility] Comment:EPITHELIAL CELL ABNO RMALITY Infection [facility] Comment: Shift in vaginal pk suggestive of bacterial vaginosis. Interpretation/Resu lt: SEE COMMENT(A) [facility] Comment: Atypical Squamous Cells of Undetermined Significance (ASC-US) LMP: [facility] Comment:NONE GIVEN PATHOLOGIST: SEE COMMENT [facility] Comment: Domenica Bryan M.D. Direct , Board Certified in Anatomic and Clinical Pathology, Cytopathology and Immunopathology (electronic signature) Prev. BX: NONE GIVEN [facility] Prev. PAP: SEE COMMENT [facility] Comment:NONE GIVEN Review Parking Patroller: SEE COMMENT [facility] Comment: BLC,CT(ASCP) CT screening location: [address] ??[phone] SOURCE: [facility] COMMENT [facility] Comment:None given Statement Of Adequacy: SEE COMMENT [facility] Comment: Satisfactory for evaluation. Endocervical/transformation zone component present. 04/23/2020 us Historical Provider MD LAB PATHOLOGY ORDERABLES Final Result [facility] [address] [place] [id number], from Last 3 Months or Most Recently Relevant to Health Maintenance
--- NOTE | 2024-08-18 18:11 | ED.URI ---
HPI - URI/Sore Throat General Chief Complaint: Headache Stated Complaint: migraine ear pain Time Seen by Provider: 08/18/24 18:11 Source: patient Mode of arrival: ambulatory Limitations: no limitations History of Present Illness ED Provider: HPI Narrative: Patient with flu-like symptoms on Tamiflu for last 2 days comes here for body headache cough and congestion her son is also sick with same also has a migraine headache no shortness a breath Related Data Previous Rx's ?Medication ?Instructions ?Recorded clomiphene citrate 50 mg tablet 50 mg PO DAILY 5 days #30 tabs 07/06/20 sumatriptan 5 mg/actuation nasal 5 mg intranasal Q2-4H PRN migraine 10/25/20 spray headache #6 ea sumatriptan succinate 50 mg tablet See Rx Instructions PO .COMPLEX 05/05/22 #14 tabs doxycycline monohydrate 100 mg 100 mg PO BID #20 tabs 03/01/23 tablet amoxicillin 875 mg-potassium 1 tab PO BID 7 days #14 tabs 04/19/23 clavulanate 125 mg tablet naproxen 500 mg tablet 500 mg PO BID #14 tabs 05/26/23 prednisone 20 mg tablet 40 mg (2 x 20 mg) PO DAILY #10 tabs 05/26/23 codeine 10 mg-guaifenesin 100 mg/5 10 ml PO Q6H PRN cough #237 mL 07/18/23 mL oral liquid ibuprofen 600 mg tablet 600 mg PO Q6H PRN fever or pain 07/18/23 #30 tabs ondansetron 4 mg disintegrating 4 mg PO Q6H PRN nausea and 09/05/23 tablet vomiting #15 tabs ibuprofen 600 mg tablet 600 mg PO Q6H PRN fever or pain 08/18/24 #30 tabs oseltamivir 75 mg capsule (Tamiflu) 75 mg PO BID 5 days #10 caps 08/18/24 Allergies Allergy/AdvReac Type Severity Reaction Status Date / Time No Known Allergies Allergy Verified 08/18/24 09:32 Review of Systems Review of Systems: Yes all other systems are reviewed and are negative [facility] Social History Social History Alcohol intake: current Alcohol intake frequency: does not drink Advance Directives: No Advance Directives Information Provided: No Do you have a plan to hurt others: No Plan Sexual orientation: Straight/Heterosexual Gender identity: Female Physical Exam Vital Signs: Vital Signs: Last Vital Signs Temp 98.7 F 08/18/24 12:23 Pulse 104 H 08/18/24 12:23 Resp 18 08/18/24 12:23 BP 120/81 08/18/24 12:23 Pulse Ox 98 08/18/24 12:23 O2 Del Method Room Air 08/18/24 12:23 BMI result Body Mass Index 24.9 Appearance: Alert. Oriented X3. No acute distress. ENT: Pharynx slight erythematous. Oral Mucosa moist clear rhinorrhea Neck: Normal inspection. Neck supple. CVS: Normal heart rate and rhythm. Pulses normal. Respiratory: No respiratory distress. Equal air entry bilateral, no wheezing/rales/rhonchi Skin: Skin warm and dry. Normal skin color. Normal skin turgor. Extremities: No lower extremity edema. Neuro: Oriented X 3. Medications Administered Discontinued Medications Generic Name Dose Route Start Last Admin Trade Name Freq PRN Reason Stop Dose Admin Acetaminophen 650 mg 08/18/24 12:09 08/18/24 12:16 Acetaminophen 325 Mg Tablet PO 08/18/24 12:10 650 mg ONCE ONE Administration Medical Decision Making Medical Decision Making [facility] Narrative: Patient with influenza B prescribed Tamiflu and supportive treatment Lab Data [facility] Lab Attestation statement: I reviewed the patient's lab results. Labs: Lab Results 08/18/24 Range/Units 09:40 Influenza Type A (PCR) NEGATIVE (Negative) Influenza Type B (PCR) POSITIVE A (Negative) RSV RNA Qual (PCR) NEGATIVE (Negative) SARS-CoV-2 RNA (RT-PCR) NEGATIVE (Negative) Discharge Plan Discharge Clinical Impression: Influenza Patient Disposition: Home, Self-Care Instructions: Influenza (ED) Additional Instructions: Drink plenty of fluids Take Tamiflu as prescribed Ibuprofen for pain Follow with your PCP if not better Prescriptions: New oseltamivir [Tamiflu] 75 mg capsule 75 mg PO BID 5 Days Qty: 10 0RF ibuprofen 600 mg tablet 600 mg PO Q6H PRN (Reason: fever or pain) Qty: 30 0RF No Action sumatriptan 5 mg/actuation spray,non-aerosol 5 mg intranasal Q2-4H PRN (Reason: migraine headache) Qty: 6 0RF Rx Instructions: into each nostril once; if headache remains, may repeat total dose once after at least 2 hours sumatriptan succinate 50 mg tablet See Rx Instructions .ROUTE .COMPLEX Qty: 14 0RF Rx Instructions: take 1 tab at onset of headache; if no relief may repeat 1 tab after at least 2 hrs; max = 4 tabs/24 hr doxycycline monohydrate 100 mg tablet 100 mg PO BID Qty: 20 0RF amoxicillin-pot clavulanate 875-125 mg tablet 1 tab PO BID 7 Days Qty: 14 0RF prednisone 20 mg tablet 40 mg PO DAILY Qty: 10 0RF naproxen 500 mg tablet 500 mg PO BID Qty: 14 0RF codeine-guaifenesin 10-100 mg/5 mL liquid 10 ml PO Q6H PRN (Reason: cough) Qty: 237 0RF ibuprofen 600 mg tablet 600 mg PO Q6H PRN (Reason: fever or pain) Qty: 30 0RF ondansetron 4 mg tablet,disintegrating 4 mg PO Q6H PRN (Reason: nausea and vomiting) Qty: 15 0RF clomiphene citrate 50 mg tablet 50 mg PO DAILY 5 Days Qty: 30 0RF Stand Alone Forms: Work/School Release Print Language: Namibian
== END 2024-08-18 18:22 | disposition home or self-care (01) ==
PROVIDERS: Emergency Medicine; Emergency Provider Internal Medicine; PCP Internal Medicine
DX: J10.1 Influenza due to other identified influenza virus with other respiratory manifestations (principal); Z03.818 Encounter for observation for suspected exposure to other biological agents ruled out
CPT/HCPCS: 0241U; 99283

== ENCOUNTER 2024-10-25 00:24 | Emergency (ER) | payer MEDICAID, SELFPAY ==
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
[2024-10-25 00:25] VITALS: BP 134/74; PULSE 64; RESP 16; TEMP 36.3; O2SAT 99; BMI 27.4
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
[2024-10-25] MEDS: cephALEXin 500 MG CAPSULE PO (01:39)
[2024-10-25 01:42] VITALS: BP 134/74; PULSE 64; RESP 16; TEMP 36.3; O2SAT 99
== END 2024-10-25 01:42 | disposition home or self-care (01) ==
PROVIDERS: Emergency Provider Emergency Medicine
DX: S63.601A Unspecified sprain of right thumb, initial encounter (principal); Y04.0XXA Assault by unarmed brawl or fight, initial encounter; Y93.9 Activity, unspecified; Y92.9 Unspecified place or not applicable; Y99.9 Unspecified external cause status; L03.113 Cellulitis of right upper limb; M79.644 Pain in right finger(s)
CPT/HCPCS: 73130; 99283; 99284

== ENCOUNTER → 2024-10-25 00:30 | Outpatient (BNV) | payer MEDICAID, SELFPAY | PROVIDERS: Emergency Provider Emergency Medicine; Visit Provider Radiology Diagnostic Radiology | DX: M79.641 Pain in right hand (principal); R22.31 Localized swelling, mass and lump, right upper limb | CPT/HCPCS: 73130 ==

== ENCOUNTER → 2025-01-14 21:12 | Outpatient (BNV) | payer OTHER, SELFPAY | PROVIDERS: Emergency Provider Emergency Medicine; Visit Provider Radiology Diagnostic Radiology | DX: R22.41 Localized swelling, mass and lump, right lower limb (principal) | CPT/HCPCS: 73610 ==

== ENCOUNTER 2025-01-14 22:02 | Emergency (ER) | payer OTHER, SELFPAY ==
--- NOTE | ~2025-01-14 | XR_ITS ---
CLINICAL HISTORY: twisted,PAIN 3 view right ankle Comparison: None provided Findings: There is lateral ankle swelling distal tibia and fibula are intact. Ankle mortise is not widened. Tibial malleoli are nondisplaced. Lateral process of talus appears intact. Calcaneus and talus are normally aligned. Navicular and cuneiforms are normal. No discrete avulsion fractures. Talar dome is not depressed. No acute fractures or dislocations. No joint effusion. No radiopaque foreign body. IMPRESSION: 1. Lateral ankle soft tissue swelling without evidence for osseous fracture, subluxation or dislocation. This may represent sequelae of ligamentous or soft tissue injury. This document has been electronically signed by: Justice Mccloud III, MD PHD on 01/14/2025 23:16:44
[2025-01-14 22:08] VITALS: BP 125/81; PULSE 85; RESP 19; TEMP 36.6; O2SAT 99; BMI 26.5
--- OUTSIDE RECORDS SUMMARY | 2025-01-14 22:18 | XMS_ITS | Clinical Summary ---
Author Organization [facility] it Address [address] [place] [address] Care Team Providers Care Chemistry Laboratory Technician Name Role Phone Unavailable Primary Care Provider [...] Cervical Cancer Screening: P ap Smear 2014 HIV Screening 07/28/2023 Hepatitis C Screening 07/28/2023 Social Influencers of Health Screening 07/28/2023 COVID-19 Vaccine ( - 2023-2 5 season) 2024 Depression Screening 06/29/2024 Influenza Vaccine (#1) 2025 HIB Vaccines Aged Out No longer eligi [...] age to complete this topic Meningococcal B Vaccine Aged Out No l onger eligible based on patient's age to complete this topic Pneumococcal Vaccine: Pediat rics (0 to 5 Years) and At-Risk Patients (6 to 49 Years) Aged Out No longer eligible b ased on patient's age to complete this topic RSV Immunization Patients Un lucinda 20 months Aged Out No longer eligible b ased on patient's age to complete this topic Varicella Vaccines Aged Out No longer eligible based on patient's age to complete this topic
--- OUTSIDE RECORDS SUMMARY | 2025-01-14 22:18 | XMS_ITS | Clinical Summary ---
Author Organization [facility] Address [address] [place] [address] Phone Care Team Providers Care Woodwind Reeds Cutter Name Role Phone No, Pcp (Do Not [...] 67 03/08/2018 6:23 PM EDT Temperature 36.1 C (96.9 F) 03/08/2018 6:23 PM EDT Respiratory Rate 18 03/08/2018 6:23 PM EDT Oxygen Saturation 98% 03/08/2018 6:23 PM EDT Inhaled Oxygen Concentration - - Weight - - Height - - Body Mass Index - - Plan of Treatment Health Maintenance Due Date Last Done Comments HIV screening 2006 Hepatitis C screening 2011 Tetanus adult (Td q 10,TDAP once) 2013 Cervical cancer screening 2014 Covid-19 vaccine series (2023- season) 2024 Influenza vaccine 02/27/2025 RSV Immunization (1 - 1-dose 75+ series) 2068 Meningococcal Vaccine Aged Out No nneka anson eligible based on patient's age to complete this topic Pneumococcal Vaccine (2 - 49 years) Aged Out No longer eligible based on patient's age to complete this topic Care Teams Woodwind Reeds Cutter Relationship Specialty Start Date End Date No, Pcp (Do Not Change Name) PCP - General 03/08/18
--- OUTSIDE RECORDS SUMMARY | 2025-01-14 22:18 | XMS_ITS | Clinical Summary ---
Author Organization [employer] Address [address] [place] [address] [address] [place] [address] Care Team Providers Care Component Technician Name Role Phone Unavailable Primary Care [...] Date Last Done Comments Depression Screening 1993 Disability Screening 1993 Alcohol/Substance Use Screening 2005 Tobacco Screening 2005 Family Planning (PISQ) 2008 HPV Vaccines (1 - 3-dose series) 2008 Hepatitis B Vaccines (1 of 3 - 19+ 3-dose series) 2012 Pap Smear 04/23/2023 04/23/2020 COVID-19 Vaccine (3 - 2023-2 5 season) 2024 11/05/2020, 10/08/2020 Influenza Vaccine (#1) 2025 Cervical Cancer Screening 04/23/2025 HPV/Cotest 04/23/2025 04/23/2020 [...] Years) and At-Risk Patients (6 to 49) Years Aged Out No longer eligible b ased [...] HIGH RISK, CERVICAL Detected( A) NOT DETECTED [facility] Comment: Detected One or more High Risk HPV types (16,18,31,33, 35,39,45,51,52,56,58,59,66,68) was detected. Methodology: Real Time PCR 04/23/2020 us Historical Provider HISTORICAL/NON ORDERABLE LABS Final Result [facility] [address] [place] [address], [place] * (ABNORMAL) THINPREP TIS PAP (04/23/2020 12:00 AM EDT) Clinical Information: SEE COMMENT [facility] Comment:None given COMMENT SEE COMMENT [facility] Comment: EXPLANATORY NOTE: The Pap is a screening test for cervical cancer. It is not a diagnostic test and is subject to false negative and false positive results. It is most reliable when a satisfactory sample, regularly obtained, is submitted with relevant clinical findings and history, and when the Pap result is evaluated along with historic and current clinical information. COMMENT: SEE COMMENT [facility] Comment: This Pap test has been evaluated with computer assisted technology. Maid Supervisor: SEE COMMENT [facility] Comment: DMM, CT(ASCP) CT screening location: [place] [address] General Categorization: SEE COMMENT(A) [facility] Comment:EPITHELIAL CELL ABNO RMALITY Infection [facility] Comment: Shift in vaginal pk suggestive of bacterial vaginosis. Interpretation/Resu lt: SEE COMMENT(A) [facility] Comment: Atypical Squamous Cells of Undetermined Significance (ASC-US) LMP: SEE COMMENT [facility] Comment:NONE GIVEN PATHOLOGIST: SEE COMMENT [facility] Comment: Domenica Bryan M.D. Direct , Board Certified in Anatomic and Clinical Pathology, Cytopathology and Immunopathology (electronic signature) Prev. BX: NONE GIVEN [facility] Prev. PAP: SEE COMMENT [facility] Comment:NONE GIVEN Review Maid Supervisor: SEE COMMENT [facility] Comment: BLC,CT(ASCP) CT screening location: [place] [address] SOURCE: SEE COMMENT [facility] Comment:None given Statement Of Adequacy: SEE COMMENT [facility] Comment: Satisfactory for evaluation. Endocervical/transformation zone component present. 04/23/2020 us Historical Provider MD LAB PATHOLOGY ORDERABLES Final Result [facility] [address] [place] [id number], [place] from Last 3 Months or Most Recently Relevant to Health Maintenance
[2025-01-14 22:57] VITALS: BP 124/78; PULSE 80; RESP 19; TEMP 36.6; O2SAT 99
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
== END 2025-01-15 00:12 | disposition home or self-care (01) ==
PROVIDERS: Emergency Provider Emergency Medicine
DX: S93.401A Sprain of unspecified ligament of right ankle, initial encounter (principal); S96.911A Strain of unspecified muscle and tendon at ankle and foot level, right foot, initial encounter; W10.8XXA Fall (on) (from) other stairs and steps, initial encounter; M25.571 Pain in right ankle and joints of right foot; Y93.89 Activity, other specified; Y92.9 Unspecified place or not applicable; Y99.9 Unspecified external cause status
CPT/HCPCS: 73610; 99283; 99284